=== PATIENT | female | born 1945 | race Caucasian/White ===

== ENCOUNTER → 2018-09-01 14:37 | Outpatient (CLI) | payer MEDICARE, OTHER, SELFPAY ==
--- NOTE | 2018-09-01 14:43 | DI.RAD.S_ITS ---
PROCEDURE: XR ANKLE RT MIN 3V INDICATIONS: Right ankle pain TECHNIQUE: 3 views of the ankle were acquired. COMPARISON: None. FINDINGS: Bones: No fractures or dislocations. Ankle mortise is normally aligned. No suspicious bony lesions. Plantar fascia insertion spur at the posterior calcaneus Soft tissues: No tibiotalar joint effusion. Achilles tendon appears free of disruption but has a fusiform thickening approximately centered 4.3 cm above the insertion, with a maximal AP dimension of the Achilles tendon in this area 1.2 cm versus 8 mm just above the posterior calcaneus.. IMPRESSION: No trauma found. Plantar fascia insertion spur is moderate in size at the posterior calcaneus. A small Achilles tendon insertion spur also can be seen in this area. Note is made of fusiform thickening of the Achilles tendon centered 4.3 cm above the Achilles tendon on the posterior calcaneus. Please closely correlate to determine whether an early phase of Achilles tendon rupture is developing. Followup by dedicated MR scanning optimized for this diagnosis may be warranted. Dictated by: Rivera Guevara M.D. on 09/01/2018 at 15:34 Approved by: Rivera Guevara M.D. on 09/01/2018 at 15:37
== END ==
PROVIDERS: PCP Family Medicine; Visit Provider Registered Nurse
DX: M25.571 Pain in right ankle and joints of right foot (principal); M77.31 Calcaneal spur, right foot
CPT/HCPCS: 73610

== ENCOUNTER → 2018-10-02 12:29 | Outpatient (CLI) | payer MEDICARE, OTHER, SELFPAY ==
[2018-10-02 14:28] LABS: Alanine Aminotransferase 59 IU/L (9-52); Albumin 4.4 g/dL (3.5-5.0); Albumin Globulin Ratio 1.6 (1.0-2.8); Alkaline Phosphatase 66 U/L (38-126); Aspartate Aminotransferase 55 IU/L (14-36); BUN Creatinine Ratio 21.1 (6-22); Bilirubin Total 0.4 mg/dL (0.2-1.3); Blood Urea Nitrogen 19 mg/dL (7-17); Calcium 9.7 mg/dL (8.4-10.2); Carbon Dioxide 23 mmol/L (22-32); Chloride 103 mmol/L (98-107); Cholesterol 165 mg/dL (140-199); Estimated Glomerular Filt Rate > 60.0 mL/min (>60); Globulin 2.8 g/dL (1.7-4.1); Glucose 209 mg/dL (80-110); HDL Cholesterol 53 mg/dL (40-60); HEMOLYSIS < 15 (0-50); LDL Cholesterol Calculated 70 mg/dL (<100); Potassium 4.8 mmol/L (3.4-5.1); Sodium 137 mmol/L (137-145); Total Protein 7.2 g/dL (6.3-8.2); Triglycerides 209 mg/dL (35-150)
[2018-10-02 15:42] LABS: Creatinine Urine Random 100.8 mg/dL
[2018-10-02 15:48] LABS: Microalbumi Creatinin Ratio Ur 74.4 ug/mg CR (<30); Microalbumin Urine Random 7.5 mg/dL (0-1.6)
== END ==
PROVIDERS: Visit Provider Registered Nurse
DX: E11.9 Type 2 diabetes mellitus without complications (principal); I10 Essential (primary) hypertension
CPT/HCPCS: 36415; 80053; 80061; 82043; 82570; 83036

== ENCOUNTER → 2018-10-16 14:58 | Outpatient (CLI) | payer MEDICARE, OTHER, SELFPAY ==
--- NOTE | 2018-10-16 14:59 | DI.ECHO.S_ITS ---
[place] [facility]---------+ [facility] +---------+ : : [address] : : : : [id number] : : : : Phone: [phone]+ Echocardiogram Report + + :Name: MERLENE STANFORD Study Date: 10/16/2018 Height: 62 in : :[facility] Exam Location: IS Weight: 180 lb : : Gender: Female BSA: 1.8 m2 : :: 1945 Age: 73 yrs BP: 150/80 mmHg: :Reason For Study: Resistant hypertension : : Performed By: Brenna Page : :Referring: LYNDSAY ELLINGTON : + + Interpretation Summary Borderline concentric left ventricular hypertrophy with ejection fraction 60- 65%. Grade I diastolic dysfunction. Moderately dilated left atrium. Mild mitral annular calcification. Mild aortic valve sclerosis. Mildly enlarged ascending aorta. Comparison is made with the echocardiogram of 12/13/2011, LV wall thickness has increased. Procedure: A two-dimensional transthoracic echocardiogram with color flow and Doppler was performed. The study quality was technically adequate. Comparison is made with the echocardiogram of 12/13/2011. The patient was in normal sinus rhythm during the exam. Left Ventricle: The left ventricle is normal in size. There is borderline concentric left ventricular hypertrophy. The ejection fraction is estimated to be 60-65%. There are no focal wall motion abnormalities. Diastolic parameters suggest a relaxation abnormality of the left ventricle, consistent with probable normal filling pressures. Right Ventricle: The right ventricle is normal in size and function. Atria: The left atrium is moderately dilated. Right atrial size is normal. There is no Doppler evidence for an interatrial shunt. Mitral Valve: The mitral valve leaflets appear mildly thickened, but open well. There is mild mitral annular calcification. There is trace mitral regurgitation. Aortic Valve: The aortic valve is trileaflet. The aortic valve opens well. There is mild aortic valve sclerosis. No aortic regurgitation is present. Tricuspid Valve: The tricuspid valve is normal in structure and function. There is trace tricuspid regurgitation. The right ventricular systolic pressure is estimated to be at least 29 mmHg based on an estimated right atrial pressure of 3 mm Hg. Pulmonic Valve: The pulmonic valve is not well visualized. There is a trace or physiologic amount of pulmonic regurgitation. Great Vessels: The aortic root is normal size. The ascending aorta is mildly enlarged. The pulmonary artery is not well visualized, but is probably normal size. The IVC is of normal diameter and collapses greater than 50% with a sniff. This suggests a low right atrial pressure of 3 mm Hg. Pericardium/ Pleura There is no pericardial effusion. There is no pleural effusion. MMode/2D Measurements & Calculations LVIDd: 4.4 cm Ao root diam: 3.5 cm LVIDs: 2.9 cm asc Aorta Diam: 3.5 cm FS: 33.1 % EPSS: 0.48 cm IVSd: 0.95 cm LVPWd: 0.88 cm LV ocampo. diameter/BSA (cm/m^2): 2.4 LV sys. diameter/BSA (cm/m^2): 1.6 LA A2 area: 21.1 cm2 RA long axis: 5.6 cm LA A4 area: 24.2 cm2 RA area: 19.2 cm2 LA length (vol): 5.6 cm RA vol: 56.1 ml LA vol: 77.4 ml RA : 30.7 ml/m2 LA vol index: 42.3 ml/m2 IVC diam: 0.91 cm RVD1 (basal): 3.7 cm TAPSE: 2.8 cm Doppler Measurements & Calculations Ao V2 max: 139.9 cm/sec LVOT Max Anthony: 113.5 cm/sec Ao V2 mean: 90.5 cm/sec LV V1 max P.2 mmHg Ao max P.8 mmHg LV V1 VTI: 25.4 cm Ao mean P.7 mmHg sev ratio: 0.87 Ao V2 VTI: 29.1 cm MV E max anthony: 75.5 cm/sec TR max anthony: 256.9 cm/sec MV A max anthony: 95.2 cm/sec TR max P.4 mmHg MV E/A: 0.79 PA V2 max: 86.1 cm/sec Med Peak E' Anthony: 5.3 cm/sec PA V2 mean: 62.8 cm/sec E/E' med: 14.3 PA mean P.7 mmHg Lat Peak E' Anthony: 6.8 cm/sec PA Accel Time: 0.13 sec E/E' lat: 11.0 E/e' average: 12.7 MV dec time: 0.29 sec MV P1/2t: 83.0 msec MV P1/2t max anthony: 75.7 cm/sec MVA(P1/2t): 2.6 cm2 Electronically signed by: Estela Plata on Reading Physician:10/16/2018 05:09 PM
== END ==
PROVIDERS: PCP Registered Nurse; Visit Provider Registered Nurse
DX: I35.8 Other nonrheumatic aortic valve disorders (principal); R01.1 Cardiac murmur, unspecified; I77.89 Other specified disorders of arteries and arterioles; I10 Essential (primary) hypertension
CPT/HCPCS: 93306

== ENCOUNTER → 2018-10-21 10:29 | Outpatient (CLI) | payer MEDICARE, OTHER, SELFPAY ==
--- NOTE | 2018-10-21 10:32 | DI.MRI.S_ITS ---
PROCEDURE: MR ANKLE RT WO CON INDICATIONS: RT ANKLE PAIN TECHNIQUE: Noncontrast sagittal T1 spin echo and T2 fast spin echo with fat saturation, axial proton density fast spin echo and T2 fast spin echo with fat saturation, coronal T1 spin echo and T2 fast spin echo with fat saturation through the ankle/hindfoot. COMPARISON: None. FINDINGS: Image quality: Excellent. Bones and joints: There is very mild edema involving lateral malleolus extending to its tip with no discrete fracture line seen. Finding may represent mild splenic contusion versus stress reaction. No other area of abnormal marrow signal. No fracture or dislocation. No hindfoot coalitions. No osteochondral injuries of the talar dome. No pathologic joint effusions. Medial structures: The posterior tibialis, flexor digitorum longus, and flexor hallucis longus tendons are intact. The posterior tibial neurovascular bundle appears normal within the tarsal tunnel, without extrinsic mass effect. The deep layer (anterior and posterior tibiotalar ligaments) and superficial layer (tibionavicular, tibiospring, and tibiocalcaneal ligaments) of the deltoid ligament appear normal. The spring ligament components (superomedial calcaneonavicular, medioplantar oblique calcaneonavicular, and inferoplantar longitudinal ligaments) are intact. Lateral structures: The anterior talofibular, calcaneofibular, and posterior talofibular ligaments appear intact. More superiorly, the anterior and posterior tibiofibular ligaments appear intact, as is the intermalleolar ligament. The tibiofibular syndesmosis is normal in width at 2 mm or less. The peroneus longus and brevis tendons are thickened with fluid distending the peroneus tendon sheath extending to their distal insertion consistent with moderate tenosynovitis. No evidence of peroneus tendon rupture. Adjacent bony peroneal tubercle and retrotrochlear prominence are normal in size. The sinus tarsi demonstrates normal fatty signal, without edema, fibrosis, or cyst formation. Visualized sinus tarsi components (cervical ligament, interosseous talocalcaneal ligament, roots of the inferior extensor retinaculum) appear normal. The calcaneonavicular and calcaneocuboid components of the bifurcate ligament appear intact. The dorsal calcaneocuboid ligament appears intact. Anterior structures: The tibialis anterior, extensor hallucis longus, and extensor digitorum longus tendons appear intact. The dorsal talonavicular ligament appears intact. Posterior and plantar structures: Significant thickening of distal Achilles tendon approximately 4 cm from its insertion on posterior calcaneus is seen suggestive of distal Achilles tendinosis. No evidence of Achilles tendon rupture. Medial and lateral bands of the plantar fascia are of normal thickness. No abductor digiti quinti muscle atrophy to suggest Horan neuropathy. IMPRESSION: 1. Moderate tenosynovitis involving mid to distal peroneus tendons. No evidence of peroneus tendon rupture. Moderate distal Achilles tendinosis with no evidence of Achilles tendon tear. 2. Very mild edema involving the distal portion of lateral malleolus, which may represent contusion versus stress reaction. No other area of abnormal marrow signal. No fracture or dislocation. 3. Rest of ankle tendons and ligaments are grossly intact. Dictated by: Kwaku Merchant M.D. on 10/23/2018 at 10:43 Approved by: Kwaku Merchant M.D. on 10/23/2018 at 10:49
== END ==
PROVIDERS: PCP Registered Nurse; Visit Provider Orthopaedic Surgery Foot and Ankle Surgery
DX: M25.571 Pain in right ankle and joints of right foot (principal); M65.871 Other synovitis and tenosynovitis, right ankle and foot
CPT/HCPCS: 73721

== ENCOUNTER → 2018-10-27 13:57 | Outpatient (CLI) | payer MEDICARE, OTHER, SELFPAY ==
[2018-10-27 15:24] LABS: Vitamin D 25 Hydroxy (D3) 15.9 ng/mL (30.0-100.0)
== END ==
PROVIDERS: PCP Registered Nurse; Visit Provider Orthopaedic Surgery Foot and Ankle Surgery
DX: E55.9 Vitamin D deficiency, unspecified (principal)
CPT/HCPCS: 36415; 82306

== ENCOUNTER → 2018-11-15 17:38 | Outpatient (CLI) | payer MEDICARE, OTHER, SELFPAY | PROVIDERS: PCP Student in an Organized Health Care Education/Training Program; Visit Provider Physician Assistant | DX: N30.00 Acute cystitis without hematuria (principal) | CPT/HCPCS: 87077; 87086; 87186 ==

== ENCOUNTER → 2019-01-31 09:07 | Outpatient (CLI) | payer MEDICARE, OTHER, SELFPAY ==
[2019-01-31 10:53] LABS: Alanine Aminotransferase 32 IU/L (9-52); Albumin 4.4 g/dL (3.5-5.0); Albumin Globulin Ratio 1.4 (1.0-2.8); Alkaline Phosphatase 58 U/L (38-126); Aspartate Aminotransferase 37 IU/L (14-36); Bilirubin Total 0.5 mg/dL (0.2-1.3); Blood Urea Nitrogen 30 mg/dL (7-17); Calcium 10.7 mg/dL (8.4-10.2); Carbon Dioxide 23 mmol/L (22-32); Chloride 103 mmol/L (98-107); Cholesterol 158 mg/dL (140-199); Estimated Glomerular Filt Rate 43.9 mL/min (>60); Globulin 3.2 g/dL (1.7-4.1); Glucose 145 mg/dL (80-110); HDL Cholesterol 52 mg/dL (40-60); HEMOLYSIS < 15 (0-50); LDL Cholesterol Calculated 79 mg/dL (<100); Magnesium 1.2 mg/dL (1.6-2.3); Potassium 4.7 mmol/L (3.4-5.1); Sodium 138 mmol/L (137-145); Total Protein 7.6 g/dL (6.3-8.2); Triglycerides 136 mg/dL (35-150)
[2019-01-31 11:18] LABS: Thyroid Stimulating Hormone 1.12 uIU/mL (0.47-4.68)
[2019-02-05 22:34] LABS: Metanephrine, Free 31 pg/mL (< OR = 57); Normetanephrine, Free 85 pg/mL (< OR = 148)
== END ==
PROVIDERS: PCP Student in an Organized Health Care Education/Training Program; Visit Provider Internal Medicine Cardiovascular Disease
DX: R00.2 Palpitations (principal); I10 Essential (primary) hypertension
CPT/HCPCS: 36415; 80053; 80061; 82088; 83735; 83835; 84443

== ENCOUNTER → 2019-06-13 14:39 | Outpatient (CLI) | payer MEDICARE, OTHER, SELFPAY ==
[2019-06-13 16:15] LABS: Blood Urea Nitrogen 26 mg/dL (7-17); Calcium 11.2 mg/dL (8.4-10.2); Carbon Dioxide 23 mmol/L (22-32); Chloride 104 mmol/L (98-107); Glucose 152 mg/dL (80-110); HEMOLYSIS < 15 (0-50); Magnesium 1.6 mg/dL (1.6-2.3); Sodium 138 mmol/L (137-145)
[2019-06-13 20:21] LABS: Vitamin D 25 Hydroxy (D3) 23.4 ng/mL (30.0-100.0)
== END ==
PROVIDERS: Family Provider Internal Medicine Cardiovascular Disease; PCP Student in an Organized Health Care Education/Training Program; Visit Provider Student in an Organized Health Care Education/Training Program
DX: E11.610 Type 2 diabetes mellitus with diabetic neuropathic arthropathy (principal); E55.9 Vitamin D deficiency, unspecified; E83.42 Hypomagnesemia; I10 Essential (primary) hypertension
CPT/HCPCS: 36415; 80048; 82306; 83036; 83735

== ENCOUNTER → 2019-06-19 13:17 | Outpatient (CLI) | payer MEDICARE, OTHER, SELFPAY ==
--- NOTE | 2019-06-19 13:20 | DI.RAD.S_ITS ---
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 COMPARISON: [facility], , CERVICAL SPINE 2 OR 3 VIEWS, 04/09/2014, 13:09. FINDINGS: Bones: No fractures or dislocations to the T1 level. Loss of lordosis which could be related to muscle spasm, rigidity or simply positional.grade 1 retrolisthesis C5-C6 where there is severe disc degeneration. The lateral masses of C1 appear intact on the odontoid view. No suspicious bony lesions. Mild multilevel uncovertebral hypertrophy. Soft tissues: No prevertebral soft tissue swelling. IMPRESSION: Loss of lordosis and severe disc degeneration at the C5-C6 level. Dictated by: Khadar DIALLO Interpreted: Laury Padilla MD on 06/19/2019 at 17:40 Approved by: Laury Padilla M.D. on 06/19/2019 at 18:37
== END ==
PROVIDERS: Family Provider Internal Medicine Cardiovascular Disease; PCP Student in an Organized Health Care Education/Training Program; Visit Provider Student in an Organized Health Care Education/Training Program
DX: G62.9 Polyneuropathy, unspecified (principal); M50.322 Other cervical disc degeneration at C5-C6 level
CPT/HCPCS: 72040

== ENCOUNTER → 2019-06-21 11:18 | Outpatient (CLI) | payer MEDICARE, OTHER, SELFPAY ==
[2019-06-21 12:43] LABS: Alanine Aminotransferase 20 IU/L (<35); Albumin 4.8 g/dL (3.5-5.0); Albumin Globulin Ratio 1.5 (1.0-2.8); Alkaline Phosphatase 69 U/L (38-126); Aspartate Aminotransferase 32 IU/L (14-36); BUN Creatinine Ratio 18.3 (6-22); Bilirubin Total 0.5 mg/dL (0.2-1.3); Blood Urea Nitrogen 22 mg/dL (7-17); Calcium 11.1 mg/dL (8.4-10.2); Carbon Dioxide 25 mmol/L (22-32); Chloride 102 mmol/L (98-107); Estimated Glomerular Filt Rate 43.9 mL/min (>60); Globulin 3.1 g/dL (1.7-4.1); Glucose 143 mg/dL (80-110); HEMOLYSIS < 15 (0-50); Magnesium 1.5 mg/dL (1.6-2.3); Phosphorous 3.4 mg/dL (2.8-4.1); Potassium 4.5 mmol/L (3.4-5.1); Sodium 138 mmol/L (137-145); Total Protein 7.9 g/dL (6.3-8.2)
[2019-06-21 13:13] LABS: TSH w/ Reflex to FT4 0.73 uIU/mL (0.47-4.68)
[2019-06-23 14:09] LABS: Parathyroid Hormone Int 22 pg/mL (14-64)
[2019-06-23 16:02] LABS: Ionized Calcium 5.5 mg/dL (4.8-5.6)
== END ==
PROVIDERS: PCP Student in an Organized Health Care Education/Training Program; Visit Provider Student in an Organized Health Care Education/Training Program
DX: E83.42 Hypomagnesemia (principal); E83.52 Hypercalcemia; Z79.899 Other long term (current) drug therapy; L65.9 Nonscarring hair loss, unspecified; R53.83 Other fatigue
CPT/HCPCS: 36415; 80053; 82330; 83735; 83970; 84100; 84443

== ENCOUNTER → 2019-09-21 09:47 | Outpatient (CLI) | payer MEDICARE, OTHER, SELFPAY ==
[2019-09-21 10:31] LABS: Hemoglobin A1C% w Est Avg Glu 6.5 % (4.0-6.0)
[2019-09-21 10:44] LABS: BUN Creatinine Ratio 19.4 (6-22); Blood Urea Nitrogen 21 mg/dL (7-17); Calcium 10.9 mg/dL (8.4-10.2); Carbon Dioxide 23 mmol/L (22-32); Chloride 107 mmol/L (98-107); Estimated Glomerular Filt Rate 49.6 mL/min (>60); Glucose 200 mg/dL (80-110); HEMOLYSIS < 15 (0-50); Sodium 138 mmol/L (137-145)
[2019-09-21 10:52] LABS: Potassium 5.6 mmol/L (3.4-5.1)
[2019-09-21 11:00] LABS: Vitamin D 25 Hydroxy (D3) 31.1 ng/mL (30.0-100.0)
[2019-09-21 17:41] LABS: Calcium Urine Random 4.2 mg/dL
[2019-09-21 17:44] LABS: Creatinine Urine Random 138.3 mg/dL
[2019-09-21 17:48] LABS: Microalbumi Creatinin Ratio Ur 49.8 ug/mg CR (<30); Microalbumin Urine Random 6.9 mg/dL (0-1.6)
== END ==
PROVIDERS: PCP Student in an Organized Health Care Education/Training Program; Referring Provider Student in an Organized Health Care Education/Training Program; Visit Provider Student in an Organized Health Care Education/Training Program
DX: E11.610 Type 2 diabetes mellitus with diabetic neuropathic arthropathy (principal); E55.9 Vitamin D deficiency, unspecified; E83.52 Hypercalcemia; N18.3 Chronic kidney disease, stage 3 (moderate)
CPT/HCPCS: 80048; 82043; 82306; 82340; 82570; 83036

== ENCOUNTER → 2019-11-09 14:36 | Outpatient (CLI) | payer MEDICARE, OTHER, SELFPAY | PROVIDERS: PCP Student in an Organized Health Care Education/Training Program; Referring Provider Student in an Organized Health Care Education/Training Program; Visit Provider Student in an Organized Health Care Education/Training Program | DX: E83.52 Hypercalcemia (principal); E11.21 Type 2 diabetes mellitus with diabetic nephropathy; R60.9 Edema, unspecified | CPT/HCPCS: 36415 ==

== ENCOUNTER → 2019-11-12 13:52 | Outpatient (CLI) | payer MEDICARE, OTHER, SELFPAY ==
[2019-11-12 15:28] LABS: BUN Creatinine Ratio 21.8 (6-22); Blood Urea Nitrogen 24 mg/dL (7-17); Calcium 10.8 mg/dL (8.4-10.2); Carbon Dioxide 21 mmol/L (22-32); Chloride 105 mmol/L (98-107); Estimated Glomerular Filt Rate 48.4 mL/min (>60); Glucose 220 mg/dL (80-110); HEMOLYSIS < 15 (0-50); Potassium 4.7 mmol/L (3.4-5.1); Sodium 136 mmol/L (137-145)
== END ==
PROVIDERS: PCP Student in an Organized Health Care Education/Training Program; Referring Provider Student in an Organized Health Care Education/Training Program; Visit Provider Student in an Organized Health Care Education/Training Program
DX: E11.21 Type 2 diabetes mellitus with diabetic nephropathy (principal); R60.9 Edema, unspecified
CPT/HCPCS: 80048

== ENCOUNTER → 2020-04-23 11:06 | Outpatient (CLI) | payer MEDICARE, OTHER, SELFPAY ==
[2020-04-23 12:48] LABS: Hemoglobin A1C% w Est Avg Glu 6.9 % (4.0-6.0)
[2020-04-23 13:13] LABS: Alkaline Phosphatase 67 U/L (38-126)
== END ==
PROVIDERS: PCP Student in an Organized Health Care Education/Training Program; Referring Provider Student in an Organized Health Care Education/Training Program; Visit Provider Student in an Organized Health Care Education/Training Program
DX: E11.21 Type 2 diabetes mellitus with diabetic nephropathy (principal); E11.610 Type 2 diabetes mellitus with diabetic neuropathic arthropathy; E83.52 Hypercalcemia; I10 Essential (primary) hypertension
CPT/HCPCS: 36415; 83036; 84075

== ENCOUNTER 2020-08-20 13:48 | Emergency (ER) | payer MEDICARE, OTHER, SELFPAY ==
[2020-08-20] VITALS (20 sets, daily range): BP systolic 133–174; BP diastolic 60–103; PULSE 84–105; RESP 16–32; TEMP 37.7–38.1; O2SAT 93–98; BMI 32.9
--- NOTE | 2020-08-20 14:15 | DI.RAD.S_ITS ---
PROCEDURE: XR CHEST 1V INDICATIONS: suspected sepsis TECHNIQUE: One view of the chest was acquired. COMPARISON: [facility], , CHEST 2 VIEW, 03/26/2013, 17:20. FINDINGS: Surgical changes and devices: None. Lungs and pleura: Lungs are clear. No pleural effusions or pneumothorax. Mediastinum: Mediastinal contours appear normal. Heart size is normal. Bones and chest wall: No suspicious bony lesions. Overlying soft tissues appear unremarkable. Degenerative changes are seen in the included spine. IMPRESSION: No acute cardiopulmonary abnormality. Dictated by: Vargas Franklin M.D. on 08/20/2020 at 14:47 Approved by: Vargas Franklin M.D. on 08/20/2020 at 14:48
[2020-08-20 14:27] LABS: Add Manual Diff / Slide Review NO; Basophils Absolute Auto 0 /uL (0-100); Basophils Percent Auto 0.3 % (0-2); Eosinophils Absolute Auto 0 /uL (0-450); Eosinophils Percent Auto 0.2 % (2-4); Hematocrit 30.5 % (36-46); Lymphocytes Absolute Auto 900 /uL (1100-4500); Lymphocytes Percent Auto 11.4 % (25-40); Mean Corpuscular HGB Conc 32.6 % (30-36); Mean Corpuscular Hemoglobin 27.5 PG (26-34); Mean Corpuscular Volume 84.4 fL (80-100); Monocytes Absolute Auto 400 /uL (0-900); Neutrophils Absolute Auto 6500 /uL (1500-7000); Neutrophils Percent Auto 83.1 % (50-75); Platelet Count 195 X10^3/uL (150-400); Red Blood Cell Count 3.62 X10^6/uL (4.0-5.2); White Blood Cell Count 7.9 X10^3/uL (4.5-11.0)
[2020-08-20 14:38] LABS: Lactate (Lactic Acid) 2.1 mmol/L (0.7-2.1)
[2020-08-20 14:39] LABS: Alanine Aminotransferase 28 IU/L (<35); Albumin Globulin Ratio 1.3 (1.0-2.8); Alkaline Phosphatase 64 U/L (38-126); Aspartate Aminotransferase 31 IU/L (14-36); BUN Creatinine Ratio 20.4 (6-22); Bilirubin Total 0.4 mg/dL (0.2-1.3); Blood Urea Nitrogen 21 mg/dL (7-17); Carbon Dioxide 25 mmol/L (22-32); Chloride 102 mmol/L (98-107); Estimated Glomerular Filt Rate 52.2 mL/min (>60); Globulin 3.1 g/dL (1.7-4.1); Glucose 226 mg/dL (80-110); HEMOLYSIS < 15 (0-50); Lipase 265 U/L (23-300); Potassium 3.9 mmol/L (3.4-5.1); Sodium 132 mmol/L (137-145); Total Protein 7.1 g/dL (6.3-8.2)
[2020-08-20 14:42] LABS: COVID19 -Nasal RAPID Negative (Negative)
[2020-08-20 14:50] LABS: INR 1.2 (0.9-1.3); Prothrombin Time 14.1 SECONDS (10.1-12.7)
[2020-08-20 14:51] LABS: Procalcitonin 0.06 ng/mL (<0.5)
[2020-08-20 14:53] LABS: PTT Partial Thromboplastin Tim 30 SECONDS (26.4-36.2)
--- NOTE | 2020-08-20 15:19 | DI.CT.S_ITS ---
PROCEDURE: CT ABDOMEN PELVIS W CON INDICATIONS: fever, tachy, unable to keep down fluids TECHNIQUE: After the administration of intravenous contrast, 5 mm thick sections acquired from the diaphragm to the symphysis. 5 mm coronal and sagittal reformats were acquired. For radiation dose reduction, the following was used: automated exposure control, adjustment of mA and/or kV according to patient size. COMPARISON: [facility], CR, XR CHEST 1V, 08/20/2020, 14:19. [facility], CT, ABDOMEN/PELVIS WITH CONTRAST, 01/18/2011, 16:06. FINDINGS: Image quality: Excellent. ABDOMEN: Lung bases: Right middle lobe and lingula scars and atelectasis. Heart size is normal. Solid organs: Liver is normal in size and enhancement. Gallbladder is normal. Biliary system is dilated. Common bile duct measures up to 12.4 mm in diameter. There is mild intrahepatic biliary dilation. Pancreas enhances normally. Spleen is normal in size and enhancement. No adrenal nodules. There is a 2.1 x 2.5 cm low-density mass in the superior pole of the left kidney. There is stranding and a small amount of fluid around the superior pole of the right kidney and tail of the pancreas. There is a 4 mm calcific density in the right right hilum compatible with a nonobstructive stone. Kidneys demonstrate normal size and enhancement, without hydronephrosis. Mild bilateral perinephric stranding. Peritoneum and bowel: Cecum and ascending colon are thickened consistent with colitis. Bowel loops demonstrate normal wall thickness and caliber. No free air. There is a mild free fluid in the right pericolic gutter. Nodes and vessels: No retroperitoneal or mesenteric adenopathy by size criteria. Aorta and inferior vena cava are normal in size. Miscellaneous: No ventral hernias. There are foci of fat stranding of the anterior abdominal wall. PELVIS: Genitourinary: Bladder wall thickness is normal. Uterus is absent. There is a 3.4 x 6.2 cm mass in the right adnexa, most likely the enlarged right ovary. Left ovary is not well seen. There is a trace amount of free fluid in the cul-de-sac. Miscellaneous: No inguinal hernias or adenopathy. Bones: No suspicious bony lesions. No vertebral body compression fractures. IMPRESSION: 1. Cecum and ascending colon appeas thickened consistent with colitis. 2. A 2.1 x 2.5 cm low-density mass in the superior pole of the left kidney. There is stranding and a small amount of fluid in the area of the upper pole of the left kidney. Differential diagnoses include partial rupture of exophytic left renal cyst, focal pyelonephritis with developing renal abscess and focal pancreatitis since the area is near the pancreatic tail. Recommend clinical correlation. Follow-up imaging is suggested to ensure resolution. 3. There is extrahepatic biliary dilation, most likely related to cholecystectomy. 4. A 3.4 x 6.2 cm mass in the right adnexa, likely arising from the right ovary. Recommend pelvic ultrasound for follow-up evaluation and gynecological consultation. 5. A 4 mm nonobstructing stone in right kidney. The result was discussed with Catherine Shah. Dictated by: Sunitha Velazquez M.D. on 08/20/2020 at 15:47 Approved by: Sunitha Velazquez M.D. on 08/20/2020 at 16:11
--- NOTE | 2020-08-20 15:52 | ED.FEVER ---
HPI - Fever <Catherine Shah, [employer]BC - Last Filed: 08/20/20 16:34> General Chief Complaint: Fever Stated Complaint: sick yesterday,diarrhea,chills,fever Time Seen by Provider: 08/20/20 14:27 Source: patient and family Mode of arrival: Ambulatory Limitations: no limitations History of Present Illness HPI Narrative: The patient is a 74-year-old female nonsmoker with history of hypertension, vertigo, chronic kidney disease who presents with a chief complaint of fever, muscle aches chills nausea vomiting and diarrhea since yesterday. She notes that she tried to eat some macro any and she has for dinner last night, and vomited up in the middle the night. She has vomited today as well. She denies any abdominal pain, but notes that she is having multiple episodes of watery diarrhea per day. She attributes this to her amlodipine. She does note that she has some chronic diarrhea, though this is much worse. She does note that she was told 40 years ago that she has ulcerative colitis, but that has ?never come up since.She states she has had multiple normal colonoscopy since. She denies any dysuria urgency or frequency. She denies any exposure to coronavirus. Related Data Home Medications Medication Instructions Recorded Confirmed aspirin 81 mg tablet,delayed 81 mg PO DAILY 12/03/18 08/20/20 release Insulin aspart sliding scale #1 ea 01/17/19 05/23/20 Previous Rx's Medication Instructions Recorded Glucose Test Strips #1 ea 12/26/18 Glucose: Home Monitor #1 ea 12/26/18 amlodipine 10 mg tablet 10 mg PO DAILY #90 tab 09/21/19 insulin glargine 100 unit/mL 30 unit SUBCUT BID #20 ml 01/17/20 subcutaneous solution esomeprazole magnesium 40 mg 40 mg PO DAILY #90 cap 02/26/20 capsule,delayed release enalapril maleate 20 mg tablet 20 mg PO BID #180 tab 04/17/20 hydrocortisone 1 % topical cream 1 applictn TOP BID PRN #30 gram 05/23/20 meclizine 25 mg tablet 25 mg PO DAILY PRN #30 tab 05/23/20 metformin 500 mg tablet,extended 500 mg PO SEE INSTRUCTIONS #120 tab 06/12/20 release 24 hr hydrochlorothiazide 12.5 mg tablet 12.5 mg PO QAM #90 tab 06/18/20 insulin aspart U-100 100 unit/mL 10 unit SUBCUT QAC #10 ml 06/18/20 subcutaneous solution Syringes: 1cc Insulin Syringes #1 ea 07/17/20 with [place] metronidazole [Flagyl] 500 mg PO TID #30 tab 08/20/20 sulfamethoxazole-trimethoprim 1 tab PO Q12H #20 tab 08/20/20 [Bactrim DS] Allergies Allergy/AdvReac Type Severity Reaction Status Date / Time amoxicillin [AMOXICILLIN] Allergy Severe nausea and Verified 08/20/20 14:02 rash ibuprofen [IBUPROFEN] Allergy Severe swelling Verified 08/20/20 14:02 and hives levofloxacin [LEVOFLOXACIN] Allergy Severe throat Verified 08/20/20 14:02 swelling/vomiting nitrofurantoin Allergy Severe hospitaliza Verified 08/20/20 14:02 [From MACROBID] tion indapamide [From LOZOL] Allergy Mild Verified 08/20/20 14:02 morphine [MORPHINE] AdvReac Severe climb the Verified 08/20/20 14:02 wall/hallucinations atorvastatin [ATORVASTATIN] AdvReac Intermediate myalgias Verified 08/20/20 14:02 simvastatin [From ZOCOR] AdvReac Intermediate myalgias Verified 08/20/20 14:02 Review of Systems <JUAN JOSE Elder - Last Filed: 08/20/20 16:34> Review of Systems Narrative: GENERAL: Denies chills, fatigue, malaise, fever, sweats. HEENT: Denies sinus pain, ear pain, sore throat, difficulty swallowing, dizziness. RESPIRATORY: Denies dyspnea, cough, wheezing, hemoptysis, sputum. CARDIOVASCULAR: Denies chest pain, palpitations, orthopnea, edema, GASTROINTESTINAL: See HPI : Denies dysuria, frequency, incontinence, hematuria, urinary retention. MUSCULOSKELETAL: denies weakness, joint pain, or bony pain SKIN: Denies rash, skin lesions, or other NEUROLOGIC: Denies weakness, headache, numbness, change in speech, confusion, seizures, incoordination. PSYCHIATRIC: No concerning psychosocial issues. 12 point review of systems is negative except for those stated above Patient History <JUAN JOSE Elder - Last Filed: 08/20/20 16:34> Medical History BPPV (benign paroxysmal positional vertigo) Diabetes mellitus GERD (gastroesophageal reflux disease) History of vaginal delivery Hormone replacement therapy Lumbar radiculopathy Surgical History History of bladder surgery History of breast biopsy History of cholecystectomy History of hysterectomy History of laminectomy (~2016) History of lymph node excision Family History Father Cancer Mother CVA (cerebral vascular accident) Social History Smoking Status: Never smoker alcohol intake: never substance use type: does not use Smoking Status: Never smoker alcohol intake frequency: other Substance Use Type: does not use Exam <JUAN JOSE Elder - Last Filed: 08/20/20 16:34> Narrative Exam Narrative: GENERAL: This is a well-nourished, well-developed patient, in no acute distress HEAD: Atraumatic. Normocephalic. No temporal or scalp tenderness. EYES: Pupils equal round and reactive. Extraocular motions intact. No scleral icterus. No injection or drainage. ENT: Nose without bleeding, purulent drainage or septal hematoma. Wearing a mask. Dry mucous membranes noted. Airway patent. NECK: Trachea midline. No JVD or lymphadenopathy. Supple, nontender, no meningeal signs. CARDIOVASCULAR: Regular rate and rhythm RESPIRATORY: Clear to auscultation. Breath sounds equal bilaterally. No wheezes, rales, or rhonchi. No cough. No increased respiratory effort. No accessory muscle use GASTROINTESTINAL: Abdomen soft, non-tender, nondistended. No hepato-splenomegaly, or palpable masses. No guarding. Active bowel sounds all 4 quadrants EXTREMITIES: No clubbing, cyanosis, or edema. No joint tenderness, effusion, or edema noted. BACK: Nontender without deformity or crepitance. No flank tenderness. NEURO: AOx3. SKIN: No rash or erythema on visible skin Initial Vital Signs Initial Vital Signs: Vital Signs Pulse Rate 102 H 08/20/20 13:53 Pulse Oximetry 96 08/20/20 13:53 <Catherine White DO - Last Filed: 08/21/20 19:20> Initial Vital Signs Initial Vital Signs: Vital Signs Pulse Rate 102 H 08/20/20 13:53 Pulse Oximetry 96 08/20/20 13:53 Scores <JUAN JOSE Elder - Last Filed: 08/20/20 16:34> GCS [place] coma scale eye opening: Spontaneous Fabiana coma scale verbal response: Orientated [place] coma scale motor response: Obey commands [place] coma scale total score: 15 Course <JUAN JOSE Elder - Last Filed: 08/20/20 16:34> Orders Ordered: Discontinued Medications Sodium Chloride (Normal Saline 0.9%) 1,000 mls @ 1,000 mls/hr IV BOLUS ONE Stop: 08/20/20 17:03 Last Infusion: 08/20/20 18:45 Dose: 0 mls/hr Documented by: Admin: 08/20/20 16:29 Dose: 1,000 mls/hr Documented by: ANA LUISA Vancomycin HCl/Dextrose (Vancomycin) 1,500 mg in 300 mls @ 200 mls/hr IV NOW ONE Stop: 08/20/20 18:58 Last Infusion: 08/20/20 19:25 Dose: 0 mls/hr Documented by: Admin: 08/20/20 17:35 Dose: 200 mls/hr Documented by: ANA LUISA Ondansetron HCl (Ondansetron 4 Mg/2 Ml Inj) 4 mg IV NOW ONE Stop: 08/20/20 16:05 Last Admin: 08/20/20 16:29 Dose: 4 mg Documented by: ANA LUISA Vital Signs Vital signs: Vital Signs - 8 hr 08/20/20 13:53 08/20/20 13:55 08/20/20 13:57 Temperature 100.6 F H Pulse Rate 102 H 104 H 101 H Respiratory Rate 18 29 H Blood Pressure 147/67 H 174/75 H Pulse Oximetry 96 97 96 08/20/20 14:00 08/20/20 14:30 08/20/20 15:00 Temperature Pulse Rate 102 H 97 H 99 H Respiratory Rate 25 H 26 H 26 H Blood Pressure 154/70 H 143/65 H 158/70 H Pulse Oximetry 96 95 94 08/20/20 15:36 08/20/20 15:54 08/20/20 16:00 Temperature Pulse Rate 95 H 93 H Respiratory Rate 29 H 29 H 32 H Blood Pressure 146/69 H Pulse Oximetry 96 97 93 08/20/20 16:01 08/20/20 16:14 08/20/20 16:30 Temperature Pulse Rate 93 H 93 H Respiratory Rate 20 Blood Pressure 135/62 Pulse Oximetry 98 95 08/20/20 16:47 08/20/20 16:55 08/20/20 17:00 Temperature 99.8 F H Pulse Rate 86 87 Respiratory Rate 23 25 H Blood Pressure 136/94 H 145/66 H Pulse Oximetry 95 95 <Catherine White, DO - Last Filed: 08/21/20 19:20> Orders Ordered: Discontinued Medications Sodium Chloride (Normal Saline 0.9%) 1,000 mls @ 1,000 mls/hr IV BOLUS ONE Stop: 08/20/20 17:03 Last Infusion: 08/20/20 18:45 Dose: 0 mls/hr Documented by: Admin: 08/20/20 16:29 Dose: 1,000 mls/hr Documented by: ANA LUISA Vancomycin HCl/Dextrose (Vancomycin) 1,500 mg in 300 mls @ 200 mls/hr IV NOW ONE Stop: 08/20/20 18:58 Last Infusion: 08/20/20 19:25 Dose: 0 mls/hr Documented by: Admin: 08/20/20 17:35 Dose: 200 mls/hr Documented by: ANA LUISA Ondansetron HCl (Ondansetron 4 Mg/2 Ml Inj) 4 mg IV NOW ONE Stop: 08/20/20 16:05 Last Admin: 08/20/20 16:29 Dose: 4 mg Documented by: ANA LUISA Vital Signs Vital signs: Vital Signs - 8 hr 08/20/20 13:53 08/20/20 13:55 08/20/20 13:57 Temperature 100.6 F H Pulse Rate 102 H 104 H 101 H Respiratory Rate 18 29 H Blood Pressure 147/67 H 174/75 H Pulse Oximetry 96 97 96 08/20/20 14:00 08/20/20 14:30 08/20/20 15:00 Temperature Pulse Rate 102 H 97 H 99 H Respiratory Rate 25 H 26 H 26 H Blood Pressure 154/70 H 143/65 H 158/70 H Pulse Oximetry 96 95 94 02/10/21 15:36 08/20/20 15:54 08/20/20 16:00 Temperature Pulse Rate 95 H 93 H Respiratory Rate 29 H 29 H 32 H Blood Pressure 146/69 H Pulse Oximetry 96 97 93 08/20/20 16:01 08/20/20 16:14 08/20/20 16:30 Temperature Pulse Rate 93 H 93 H Respiratory Rate 20 Blood Pressure 135/62 Pulse Oximetry 98 95 08/20/20 16:47 08/20/20 16:55 08/20/20 17:00 Temperature 99.8 F H Pulse Rate 86 87 Respiratory Rate 23 25 H Blood Pressure 136/94 H 145/66 H Pulse Oximetry 95 95 MDM - Fever <MARIELLE Elder-BC - Last Filed: 08/20/20 16:34> Lab Data Result diagrams: 08/20/20 13:58 08/20/20 14:15 Labs: Lab Results 08/20/20 08/20/20 08/20/20 Range/Units 13:58 13:58 13:58 WBC 7.9 (4.5-11.0) X10^3/uL RBC 3.62 L (4.0-5.2) X10^6/uL Hgb 10.0 L (12.0-16.0) g/dL Hct 30.5 L (36-46) % MCV 84.4 (80-100) fL MCH 27.5 (26-34) PG MCHC 32.6 (30-36) % RDW 15.0 H (11.6-14.8) % Plt Count 195 (150-400) X10^3/uL Neut % (Auto) 83.1 H (50-75) % Lymph % (Auto) 11.4 L (25-40) % [place] % (Auto) 5.0 (3-14) % Eos % (Auto) 0.2 L (2-4) % Baso % (Auto) 0.3 (0-2) % Neut # (Auto) 6500 (6177-1718) /uL Lymph # (Auto) 900 L (5940-9372) /uL [place] # (Auto) 400 (0-900) /uL Eos # (Auto) 0 (0-450) /uL Baso # (Auto) 0 (0-100) /uL PT 14.1 H (10.1-12.7) SECONDS INR 1.2 (0.9-1.3) APTT 30 (26.4-36.2) SECONDS Sodium (137-145) mmol/L Potassium (3.4-5.1) mmol/L Chloride (98-107) mmol/L Carbon Dioxide (22-32) mmol/L BUN (7-17) mg/dL Creatinine (0.52-1.04) mg/dL Estimated GFR (>60) mL/min BUN/Creatinine Ratio (6-22) Glucose (80-110) mg/dL Lactate (0.7-2.1) mmol/L Calcium (8.4-10.2) mg/dL Total Bilirubin (0.2-1.3) mg/dL AST (14-36) IU/L ALT (<35) IU/L Alkaline Phosphatase (38-126) U/L Total Protein (6.3-8.2) g/dL Albumin (3.5-5.0) g/dL Globulin (1.7-4.1) g/dL Albumin/Globulin Ratio (1.0-2.8) Lipase (23-300) U/L Procalcitonin 0.06 (<0.5) ng/mL Stl C. cayetanensis PCR Stool Rotavirus (PCR) Stool Adenovirus (PCR) Stool Astrovirus (PCR) Stool Cryptosporidium PCR Stl E.coli Shiga Tox PCR St Sh/Enteroin Ecoli PCR Stool E coli O157 PCR Stl Enterotoxigenic E PCR Stool EPEC (PCR) Stl E. histolytica PCR Stool Giardia Lamblia PCR Stool Sapovirus (PCR) Stl P. shigelloides PCR St Y.enterocolitica PCR Stool Vibrio (PCR) Stl Vibrio cholerae PCR Stl Enteroaggr Ecoli PCR Stl Norovirus GI/GII PCR A. baumannii (PCR) (Not Detect) Campylobacter (PCR) Dory albicans (PCR) (Not Detect) C. glabrata (PCR) (Not Detect) C. krusei (PCR) (Not Detect) C. parapsilosis (PCR) (Not Detect) C. tropicalis (PCR) (Not Detect) C. difficile Tox (PCR) SARS-CoV-2 (PCR) (Negative) Enterobacteriac sp PCR (Not Detect) E. cloacae complex PCR (Not Detect) Enterococcus sp PCR (Not Detect) E. coli (PCR) (Not Detect) H. influenzae (PCR) (Not Detect) Klebsiella oxytoca PCR (Not Detect) Klebsiella pneumoniae (Not Detect) List. monocytogenes PCR (Not Detect) N. meningitidis (PCR) (Not Detect) Proteus species (PCR) (Not Detect) Salmonella (PCR) Serratia marcescens PCR (Not Detect) Staphylococcus sp PCR (Not Detect) Staph aureus (PCR) (Not Detect) mecA-Methicil Res Gene Streptococcus sp PCR (Not Detect) Group A Strep (PCR) (Not Detect) Strep agalactiae (PCR) (Not Detect) Strep pneumoniae (PCR) (Not Detect) P. aeruginosa (PCR) (Not Detect) Parminder/B-Vanco Res Genes KPC-Carbap Res Gene PCR (Not Detect) 08/20/20 08/20/20 08/20/20 Range/Units 13:58 14:11 14:15 WBC (4.5-11.0) X10^3/uL RBC (4.0-5.2) X10^6/uL Hgb (12.0-16.0) g/dL Hct (36-46) % MCV (80-100) fL MCH (26-34) PG MCHC (30-36) % RDW (11.6-14.8) % Plt Count (150-400) X10^3/uL Neut % (Auto) (50-75) % Lymph % (Auto) (25-40) % [place] % (Auto) (3-14) % Eos % (Auto) (2-4) % Baso % (Auto) (0-2) % Neut # (Auto) (8162-4172) /uL Lymph # (Auto) (9773-8539) /uL [place] # (Auto) (0-900) /uL Eos # (Auto) (0-450) /uL Baso # (Auto) (0-100) /uL PT (10.1-12.7) SECONDS INR (0.9-1.3) APTT (26.4-36.2) SECONDS Sodium 132 L (137-145) mmol/L Potassium 3.9 (3.4-5.1) mmol/L Chloride 102 (98-107) mmol/L Carbon Dioxide 25 (22-32) mmol/L BUN 21 H (7-17) mg/dL Creatinine 1.03 (0.52-1.04) mg/dL Estimated GFR 52.2 L (>60) mL/min BUN/Creatinine Ratio 20.4 (6-22) Glucose 226 H (80-110) mg/dL Lactate (0.7-2.1) mmol/L Calcium 9.0 (8.4-10.2) mg/dL Total Bilirubin 0.4 (0.2-1.3) mg/dL AST 31 (14-36) IU/L ALT 28 (<35) IU/L Alkaline Phosphatase 64 (38-126) U/L Total Protein 7.1 (6.3-8.2) g/dL Albumin 4.0 (3.5-5.0) g/dL Globulin 3.1 (1.7-4.1) g/dL Albumin/Globulin Ratio 1.3 (1.0-2.8) Lipase 265 (23-300) U/L Procalcitonin (<0.5) ng/mL Stl C. cayetanensis PCR Cancelled Stool Rotavirus (PCR) Cancelled Stool Adenovirus (PCR) Cancelled Stool Astrovirus (PCR) Cancelled Stool Cryptosporidium PCR Cancelled Stl E.coli Shiga Tox PCR Cancelled St Sh/Enteroin Ecoli PCR Cancelled Stool E coli O157 PCR Cancelled Stl Enterotoxigenic E PCR Cancelled Stool EPEC (PCR) Cancelled Stl E. histolytica PCR Cancelled Stool Giardia Lamblia PCR Cancelled Stool Sapovirus (PCR) Cancelled Stl P. shigelloides PCR Cancelled St Y.enterocolitica PCR Cancelled Stool Vibrio (PCR) Cancelled Stl Vibrio cholerae PCR Cancelled Stl Enteroaggr Ecoli PCR Cancelled Stl Norovirus GI/GII PCR Cancelled A. baumannii (PCR) Not detected (Not Detect) Campylobacter (PCR) Cancelled Dory albicans (PCR) Not detected (Not Detect) C. glabrata (PCR) Not detected (Not Detect) C. krusei (PCR) Not detected (Not Detect) C. parapsilosis (PCR) Not detected (Not Detect) C. tropicalis (PCR) Not detected (Not Detect) C. difficile Tox (PCR) Cancelled SARS-CoV-2 (PCR) (Negative) Enterobacteriac sp PCR Detected H (Not Detect) E. cloacae complex PCR Not detected (Not Detect) Enterococcus sp PCR Not detected (Not Detect) E. coli (PCR) Not detected (Not Detect) H. influenzae (PCR) Not detected (Not Detect) Klebsiella oxytoca PCR Not detected (Not Detect) Klebsiella pneumoniae Not detected (Not Detect) List. monocytogenes PCR Not detected (Not Detect) N. meningitidis (PCR) Not detected (Not Detect) Proteus species (PCR) Not detected (Not Detect) Salmonella (PCR) Cancelled Serratia marcescens PCR Not detected (Not Detect) Staphylococcus sp PCR Not detected (Not Detect) Staph aureus (PCR) Not detected (Not Detect) mecA-Methicil Res Gene Not Reportable Streptococcus sp PCR Not detected (Not Detect) Group A Strep (PCR) Not detected (Not Detect) Strep agalactiae (PCR) Not detected (Not Detect) Strep pneumoniae (PCR) Not detected (Not Detect) P. aeruginosa (PCR) Not detected (Not Detect) Parminder/B-Vanco Res Genes Not Reportable KPC-Carbap Res Gene PCR Not detected (Not Detect) 08/20/20 08/20/20 08/20/20 Range/Units 14:15 14:16 16:56 WBC (4.5-11.0) X10^3/uL RBC (4.0-5.2) X10^6/uL Hgb (12.0-16.0) g/dL Hct (36-46) % MCV (80-100) fL MCH (26-34) PG MCHC (30-36) % RDW (11.6-14.8) % Plt Count (150-400) X10^3/uL Neut % (Auto) (50-75) % Lymph % (Auto) (25-40) % [place] % (Auto) (3-14) % Eos % (Auto) (2-4) % Baso % (Auto) (0-2) % Neut # (Auto) (9245-7800) /uL Lymph # (Auto) (5748-7686) /uL [place] # (Auto) (0-900) /uL Eos # (Auto) (0-450) /uL Baso # (Auto) (0-100) /uL PT (10.1-12.7) SECONDS INR (0.9-1.3) APTT (26.4-36.2) SECONDS Sodium (137-145) mmol/L Potassium (3.4-5.1) mmol/L Chloride (98-107) mmol/L Carbon Dioxide (22-32) mmol/L BUN (7-17) mg/dL Creatinine (0.52-1.04) mg/dL Estimated GFR (>60) mL/min BUN/Creatinine Ratio (6-22) Glucose (80-110) mg/dL Lactate 2.1 1.5 (0.7-2.1) mmol/L Calcium (8.4-10.2) mg/dL Total Bilirubin (0.2-1.3) mg/dL AST (14-36) IU/L ALT (<35) IU/L Alkaline Phosphatase (38-126) U/L Total Protein (6.3-8.2) g/dL Albumin (3.5-5.0) g/dL Globulin (1.7-4.1) g/dL Albumin/Globulin Ratio (1.0-2.8) Lipase (23-300) U/L Procalcitonin (<0.5) ng/mL Stl C. cayetanensis PCR Stool Rotavirus (PCR) Stool Adenovirus (PCR) Stool Astrovirus (PCR) Stool Cryptosporidium PCR Stl E.coli Shiga Tox PCR St Sh/Enteroin Ecoli PCR Stool E coli O157 PCR Stl Enterotoxigenic E PCR Stool EPEC (PCR) Stl E. histolytica PCR Stool Giardia Lamblia PCR Stool Sapovirus (PCR) Stl P. shigelloides PCR St Y.enterocolitica PCR Stool Vibrio (PCR) Stl Vibrio cholerae PCR Stl Enteroaggr Ecoli PCR Stl Norovirus GI/GII PCR A. baumannii (PCR) (Not Detect) Campylobacter (PCR) Dory albicans (PCR) (Not Detect) C. glabrata (PCR) (Not Detect) C. krusei (PCR) (Not Detect) C. parapsilosis (PCR) (Not Detect) C. tropicalis (PCR) (Not Detect) C. difficile Tox (PCR) SARS-CoV-2 (PCR) Negative (Negative) Enterobacteriac sp PCR (Not Detect) E. cloacae complex PCR (Not Detect) Enterococcus sp PCR (Not Detect) E. coli (PCR) (Not Detect) H. influenzae (PCR) (Not Detect) Klebsiella oxytoca PCR (Not Detect) Klebsiella pneumoniae (Not Detect) List. monocytogenes PCR (Not Detect) N. meningitidis (PCR) (Not Detect) Proteus species (PCR) (Not Detect) Salmonella (PCR) Serratia marcescens PCR (Not Detect) Staphylococcus sp PCR (Not Detect) Staph aureus (PCR) (Not Detect) mecA-Methicil Res Gene Streptococcus sp PCR (Not Detect) Group A Strep (PCR) (Not Detect) Strep agalactiae (PCR) (Not Detect) Strep pneumoniae (PCR) (Not Detect) P. aeruginosa (PCR) (Not Detect) Parminder/B-Vanco Res Genes KPC-Carbap Res Gene PCR (Not Detect) Urine Dip Bedside Urine Glucose Negative Bedside Urine Bilirubin - Negative Bedside Urine Ketone - Negative Urine Specific [place] 1.010 Bedside Urine Occult Blood - Negative Bedside Urine pH 6 Bedside Urine Protein +/- 15 Bedside Urine Urobilinogen - Negative Bedside Urine Nitrite - Negative Bedside Urine Leukocytes - Negative Esterase Imaging Data CT scan - abdomen/pelvis: Radiologist's Impression: [address] [id number] Scan ReportSigned Patient: Frida Britt [facility]#: [id number]: 5Acct:[id number]/Sex: 74 / FDate of Service: 08/20/20Loc: EDAccession Number: [id number] Procedure: CT abdomen pelvis w con Ordering Provider: Catherine Shah [employer]- PROCEDURE: CT ABDOMEN PELVIS W CON INDICATIONS: fever, tachy, unable to keep down fluids TECHNIQUE: After the administration of intravenous contrast, 5 mm thick sections acquired from the diaphragm to the symphysis. 5 mm coronal and sagittal reformats were acquired. For radiation dose reduction, the following was used: automated exposure control, adjustment of mA and/or kV according to patient size. COMPARISON: [facility], CR, XR CHEST 1V, 08/20/2020, 14:19. [facility], CT, ABDOMEN/PELVIS WITH CONTRAST, 01/18/2011, 16:06. FINDINGS: Image quality: Excellent. ABDOMEN: Lung bases: Right middle lobe and lingula scars and atelectasis. Heart size is normal. Solid organs: Liver is normal in size and enhancement. Gallbladder is normal. Biliary system is dilated. Common bile duct measures up to 12.4 mm in diameter. There is mild intrahepatic biliary dilation. Pancreas enhances normally. Spleen is normal in size and enhancement. No adrenal nodules. There is a 2.1 x 2.5 cm low-density mass in the superior pole of the left kidney. There is stranding and a small amount of fluid around the superior pole of the right kidney and tail of the pancreas. There is a 4 mm calcific density in the right right hilum compatible with a nonobstructive stone. Kidneys demonstrate normal size and enhancement, without hydronephrosis. Mild bilateral perinephric stranding. Peritoneum and bowel: Cecum and ascending colon are thickened consistent with colitis. Bowel loops demonstrate normal wall thickness and caliber. No free air. There is a mild free fluid in the right pericolic gutter. Nodes and vessels: No retroperitoneal or mesenteric adenopathy by size criteria. Aorta and inferior vena cava are normal in size. Miscellaneous: No ventral hernias. There are foci of fat stranding of the anterior abdominal wall. PELVIS: Genitourinary: Bladder wall thickness is normal. Uterus is absent. There is a 3.4 x 6.2 cm mass in the right adnexa, most likely the enlarged right ovary. Left ovary is not well seen. There is a trace amount of free fluid in the cul-de-sac. Miscellaneous: No inguinal hernias or adenopathy. Bones: No suspicious bony lesions. No vertebral body compression fractures. IMPRESSION: 1. Cecum and ascending colon appeas thickened consistent with colitis. 2. A 2.1 x 2.5 cm low-density mass in the superior pole of the left kidney. There is stranding and a small amount of fluid in the area of the upper pole of the left kidney. Differential diagnoses include partial rupture of exophytic left renal cyst, focal pyelonephritis with developing renal abscess and focal pancreatitis since the area is near the pancreatic tail. Recommend clinical correlation. Follow-up imaging is suggested to ensure resolution. 3. There is extrahepatic biliary dilation, most likely related to cholecystectomy. 4. A 3.4 x 6.2 cm mass in the right adnexa, likely arising from the right ovary. Recommend pelvic ultrasound for follow-up evaluation and gynecological consultation. 5. A 4 mm nonobstructing stone in right kidney. The result was discussed with Catherine Shah. Dictated by: Sunitha Velazquez M.D. on 08/20/2020 at 15:47 Approved by: Sunitha Velazquez M.D. on 08/20/2020 at 16:11 Chest x-ray: Radiologist's Impression: [address] [id number] ReportSigned Patient: Frida Britt [facility]#: [id number]: 5Acct:[id number]/Sex: 74 / FDate of Service: 08/20/20Loc: EDAccession Number: [id number] Procedure: XR chest 1V Ordering Provider: Catherine Shah [employer]- PROCEDURE: XR CHEST 1V INDICATIONS: suspected sepsis TECHNIQUE: One view of the chest was acquired. COMPARISON: [facility], CHEST 2 VIEW, 03/26/2013, 17:20. FINDINGS: Surgical changes and devices: None. Lungs and pleura: Lungs are clear. No pleural effusions or pneumothorax. Mediastinum: Mediastinal contours appear normal. Heart size is normal. Bones and chest wall: No suspicious bony lesions. Overlying soft tissues appear unremarkable. Degenerative changes are seen in the included spine. IMPRESSION: No acute cardiopulmonary abnormality. Dictated by: Vargas Franklin M.D. on 08/20/2020 at 14:47 Approved by: Vargas Franklin M.D. on 08/20/2020 at 14:48 [facility] Narrative Medical decision making narrative: The patient is a 74-year-old female who presents with a chief complaint of fever muscle aches chills, nausea vomiting and diarrhea. Work is overall reassuring, no leukocytosis, no elevated lactate or procalcitonin. Given that she is unable to keep down fluids, reports multiple watery stools per day, CT abdomen pelvis obtained, especially given the setting of tachycardia and fever. Blood cultures also done. CT concerning for colitis, did discuss at length with the patient of a low-density mass in the superior pole of her left kidney. Her etiologies noted to consider pyelonephritis, renal abscess however the patient has no leukocytosis, no procalcitonin and no pain over left CVA area. Focal pancreatitis consider given radiology concerns, though lipase is not elevated at this time. Did discuss at length with patient the mass of her right adnexa, encouraged further imaging with primary care provider and/or OBGYN as well as nonobstructing right renal stone. At approximately 4:20 p.m did discuss with patient all these findings, offered admission at this point, but patient would like to hold off receive IV fluids and get stool sample 1st. Patient signed outto Dr White at 16:30. <Catherine White, DO - Last Filed: 08/21/20 19:20> Lab Data Attestation: I reviewed the patient's lab results. Labs: Lab Results 08/20/20 08/20/20 08/20/20 Range/Units 13:58 13:58 13:58 WBC 7.9 (4.5-11.0) X10^3/uL RBC 3.62 L (4.0-5.2) X10^6/uL Hgb 10.0 L (12.0-16.0) g/dL Hct 30.5 L (36-46) % MCV 84.4 (80-100) fL MCH 27.5 (26-34) PG MCHC 32.6 (30-36) % RDW 15.0 H (11.6-14.8) % Plt Count 195 (150-400) X10^3/uL Neut % (Auto) 83.1 H (50-75) % Lymph % (Auto) 11.4 L (25-40) % [place] % (Auto) 5.0 (3-14) % Eos % (Auto) 0.2 L (2-4) % Baso % (Auto) 0.3 (0-2) % Neut # (Auto) 6500 (4948-7687) /uL Lymph # (Auto) 900 L (0173-1026) /uL [place] # (Auto) 400 (0-900) /uL Eos # (Auto) 0 (0-450) /uL Baso # (Auto) 0 (0-100) /uL PT 14.1 H (10.1-12.7) SECONDS INR 1.2 (0.9-1.3) APTT 30 (26.4-36.2) SECONDS Sodium (137-145) mmol/L Potassium (3.4-5.1) mmol/L Chloride (98-107) mmol/L Carbon Dioxide (22-32) mmol/L BUN (7-17) mg/dL Creatinine (0.52-1.04) mg/dL Estimated GFR (>60) mL/min BUN/Creatinine Ratio (6-22) Glucose (80-110) mg/dL Lactate (0.7-2.1) mmol/L Calcium (8.4-10.2) mg/dL Total Bilirubin (0.2-1.3) mg/dL AST (14-36) IU/L ALT (<35) IU/L Alkaline Phosphatase (38-126) U/L Total Protein (6.3-8.2) g/dL Albumin (3.5-5.0) g/dL Globulin (1.7-4.1) g/dL Albumin/Globulin Ratio (1.0-2.8) Lipase (23-300) U/L Procalcitonin 0.06 (<0.5) ng/mL Stl C. cayetanensis PCR Stool Rotavirus (PCR) Stool Adenovirus (PCR) Stool Astrovirus (PCR) Stool Cryptosporidium PCR Stl E.coli Shiga Tox PCR St Sh/Enteroin Ecoli PCR Stool E coli O157 PCR Stl Enterotoxigenic E PCR Stool EPEC (PCR) Stl E. histolytica PCR Stool Giardia Lamblia PCR Stool Sapovirus (PCR) Stl P. shigelloides PCR St Y.enterocolitica PCR Stool Vibrio (PCR) Stl Vibrio cholerae PCR Stl Enteroaggr Ecoli PCR Stl Norovirus GI/GII PCR A. baumannii (PCR) (Not Detect) Campylobacter (PCR) Dory albicans (PCR) (Not Detect) C. glabrata (PCR) (Not Detect) C. krusei (PCR) (Not Detect) C. parapsilosis (PCR) (Not Detect) C. tropicalis (PCR) (Not Detect) C. difficile Tox (PCR) SARS-CoV-2 (PCR) (Negative) Enterobacteriac sp PCR (Not Detect) E. cloacae complex PCR (Not Detect) Enterococcus sp PCR (Not Detect) E. coli (PCR) (Not Detect) H. influenzae (PCR) (Not Detect) Klebsiella oxytoca PCR (Not Detect) Klebsiella pneumoniae (Not Detect) List. monocytogenes PCR (Not Detect) N. meningitidis (PCR) (Not Detect) Proteus species (PCR) (Not Detect) Salmonella (PCR) Serratia marcescens PCR (Not Detect) Staphylococcus sp PCR (Not Detect) Staph aureus (PCR) (Not Detect) mecA-Methicil Res Gene Streptococcus sp PCR (Not Detect) Group A Strep (PCR) (Not Detect) Strep agalactiae (PCR) (Not Detect) Strep pneumoniae (PCR) (Not Detect) P. aeruginosa (PCR) (Not Detect) Parminder/B-Vanco Res Genes KPC-Carbap Res Gene PCR (Not Detect) 08/20/20 08/20/20 08/20/20 Range/Units 13:58 14:11 14:15 WBC (4.5-11.0) X10^3/uL RBC (4.0-5.2) X10^6/uL Hgb (12.0-16.0) g/dL Hct (36-46) % MCV (80-100) fL MCH (26-34) PG MCHC (30-36) % RDW (11.6-14.8) % Plt Count (150-400) X10^3/uL Neut % (Auto) (50-75) % Lymph % (Auto) (25-40) % [place] % (Auto) (3-14) % Eos % (Auto) (2-4) % Baso % (Auto) (0-2) % Neut # (Auto) (6375-3861) /uL Lymph # (Auto) (5918-0932) /uL [place] # (Auto) (0-900) /uL Eos # (Auto) (0-450) /uL Baso # (Auto) (0-100) /uL PT (10.1-12.7) SECONDS INR (0.9-1.3) APTT (26.4-36.2) SECONDS Sodium 132 L (137-145) mmol/L Potassium 3.9 (3.4-5.1) mmol/L Chloride 102 (98-107) mmol/L Carbon Dioxide 25 (22-32) mmol/L BUN 21 H (7-17) mg/dL Creatinine 1.03 (0.52-1.04) mg/dL Estimated GFR 52.2 L (>60) mL/min BUN/Creatinine Ratio 20.4 (6-22) Glucose 226 H (80-110) mg/dL Lactate (0.7-2.1) mmol/L Calcium 9.0 (8.4-10.2) mg/dL Total Bilirubin 0.4 (0.2-1.3) mg/dL AST 31 (14-36) IU/L ALT 28 (<35) IU/L Alkaline Phosphatase 64 (38-126) U/L Total Protein 7.1 (6.3-8.2) g/dL Albumin 4.0 (3.5-5.0) g/dL Globulin 3.1 (1.7-4.1) g/dL Albumin/Globulin Ratio 1.3 (1.0-2.8) Lipase 265 (23-300) U/L Procalcitonin (<0.5) ng/mL Stl C. cayetanensis PCR Cancelled Stool Rotavirus (PCR) Cancelled Stool Adenovirus (PCR) Cancelled Stool Astrovirus (PCR) Cancelled Stool Cryptosporidium PCR Cancelled Stl E.coli Shiga Tox PCR Cancelled St Sh/Enteroin Ecoli PCR Cancelled Stool E coli O157 PCR Cancelled Stl Enterotoxigenic E PCR Cancelled Stool EPEC (PCR) Cancelled Stl E. histolytica PCR Cancelled Stool Giardia Lamblia PCR Cancelled Stool Sapovirus (PCR) Cancelled Stl P. shigelloides PCR Cancelled St Y.enterocolitica PCR Cancelled Stool Vibrio (PCR) Cancelled Stl Vibrio cholerae PCR Cancelled Stl Enteroaggr Ecoli PCR Cancelled Stl Norovirus GI/GII PCR Cancelled A. baumannii (PCR) Not detected (Not Detect) Campylobacter (PCR) Cancelled Dory albicans (PCR) Not detected (Not Detect) C. glabrata (PCR) Not detected (Not Detect) C. krusei (PCR) Not detected (Not Detect) C. parapsilosis (PCR) Not detected (Not Detect) C. tropicalis (PCR) Not detected (Not Detect) C. difficile Tox (PCR) Cancelled SARS-CoV-2 (PCR) (Negative) Enterobacteriac sp PCR Detected H (Not Detect) E. cloacae complex PCR Not detected (Not Detect) Enterococcus sp PCR Not detected (Not Detect) E. coli (PCR) Not detected (Not Detect) H. influenzae (PCR) Not detected (Not Detect) Klebsiella oxytoca PCR Not detected (Not Detect) Klebsiella pneumoniae Not detected (Not Detect) List. monocytogenes PCR Not detected (Not Detect) N. meningitidis (PCR) Not detected (Not Detect) Proteus species (PCR) Not detected (Not Detect) Salmonella (PCR) Cancelled Serratia marcescens PCR Not detected (Not Detect) Staphylococcus sp PCR Not detected (Not Detect) Staph aureus (PCR) Not detected (Not Detect) mecA-Methicil Res Gene Not Reportable Streptococcus sp PCR Not detected (Not Detect) Group A Strep (PCR) Not detected (Not Detect) Strep agalactiae (PCR) Not detected (Not Detect) Strep pneumoniae (PCR) Not detected (Not Detect) P. aeruginosa (PCR) Not detected (Not Detect) Parminder/B-Vanco Res Genes Not Reportable KPC-Carbap Res Gene PCR Not detected (Not Detect) 08/20/20 08/20/20 08/20/20 Range/Units 14:15 14:16 16:56 WBC (4.5-11.0) X10^3/uL RBC (4.0-5.2) X10^6/uL Hgb (12.0-16.0) g/dL Hct (36-46) % MCV (80-100) fL MCH (26-34) PG MCHC (30-36) % RDW (11.6-14.8) % Plt Count (150-400) X10^3/uL Neut % (Auto) (50-75) % Lymph % (Auto) (25-40) % [place] % (Auto) (3-14) % Eos % (Auto) (2-4) % Baso % (Auto) (0-2) % Neut # (Auto) (2898-2421) /uL Lymph # (Auto) (0556-9279) /uL [place] # (Auto) (0-900) /uL Eos # (Auto) (0-450) /uL Baso # (Auto) (0-100) /uL PT (10.1-12.7) SECONDS INR (0.9-1.3) APTT (26.4-36.2) SECONDS Sodium (137-145) mmol/L Potassium (3.4-5.1) mmol/L Chloride (98-107) mmol/L Carbon Dioxide (22-32) mmol/L BUN (7-17) mg/dL Creatinine (0.52-1.04) mg/dL Estimated GFR (>60) mL/min BUN/Creatinine Ratio (6-22) Glucose (80-110) mg/dL Lactate 2.1 1.5 (0.7-2.1) mmol/L Calcium (8.4-10.2) mg/dL Total Bilirubin (0.2-1.3) mg/dL AST (14-36) IU/L ALT (<35) IU/L Alkaline Phosphatase (38-126) U/L Total Protein (6.3-8.2) g/dL Albumin (3.5-5.0) g/dL Globulin (1.7-4.1) g/dL Albumin/Globulin Ratio (1.0-2.8) Lipase (23-300) U/L Procalcitonin (<0.5) ng/mL Stl C. cayetanensis PCR Stool Rotavirus (PCR) Stool Adenovirus (PCR) Stool Astrovirus (PCR) Stool Cryptosporidium PCR Stl E.coli Shiga Tox PCR St Sh/Enteroin Ecoli PCR Stool E coli O157 PCR Stl Enterotoxigenic E PCR Stool EPEC (PCR) Stl E. histolytica PCR Stool Giardia Lamblia PCR Stool Sapovirus (PCR) Stl P. shigelloides PCR St Y.enterocolitica PCR Stool Vibrio (PCR) Stl Vibrio cholerae PCR Stl Enteroaggr Ecoli PCR Stl Norovirus GI/GII PCR A. baumannii (PCR) (Not Detect) Campylobacter (PCR) Dory albicans (PCR) (Not Detect) C. glabrata (PCR) (Not Detect) C. krusei (PCR) (Not Detect) C. parapsilosis (PCR) (Not Detect) C. tropicalis (PCR) (Not Detect) C. difficile Tox (PCR) SARS-CoV-2 (PCR) Negative (Negative) Enterobacteriac sp PCR (Not Detect) E. cloacae complex PCR (Not Detect) Enterococcus sp PCR (Not Detect) E. coli (PCR) (Not Detect) H. influenzae (PCR) (Not Detect) Klebsiella oxytoca PCR (Not Detect) Klebsiella pneumoniae (Not Detect) List. monocytogenes PCR (Not Detect) N. meningitidis (PCR) (Not Detect) Proteus species (PCR) (Not Detect) Salmonella (PCR) Serratia marcescens PCR (Not Detect) Staphylococcus sp PCR (Not Detect) Staph aureus (PCR) (Not Detect) mecA-Methicil Res Gene Streptococcus sp PCR (Not Detect) Group A Strep (PCR) (Not Detect) Strep agalactiae (PCR) (Not Detect) Strep pneumoniae (PCR) (Not Detect) P. aeruginosa (PCR) (Not Detect) Parminder/B-Vanco Res Genes KPC-Carbap Res Gene PCR (Not Detect) Urine Dip Bedside Urine Glucose Negative Bedside Urine Bilirubin - Negative Bedside Urine Ketone - Negative Urine Specific [place] 1.010 Bedside Urine Occult Blood - Negative Bedside Urine pH 6 Bedside Urine Protein +/- 15 Bedside Urine Urobilinogen - Negative Bedside Urine Nitrite - Negative Bedside Urine Leukocytes - Negative Esterase MDM Narrative Medical decision making narrative: 74 year old female signed out to myself whom initially meets septic criteria. Patient appeared to have colitis on CT imaging but also had changes with the kidney as well as an adnexal mass. Seems less likely to be abscess with the kidney and adnexal changes. Urinalysis was negative. Patient stool was sent for PCR but the reagent was unavailable, it was status to [facility] but they no longer perform this test. So was sent for urine culture which will take several days to result. Patient was offered observation she defers, her vital signs have improved significantly. She continues to have intermittent diarrhea but is feeling much better. Patient was started on Bactrim and Flagyl as she has multiple allergies complicating her antibiotic choice but with her fever I feel she is appropriate to treat for infectious colitis. We did review her allergies and the seem to be the most appropriate choices at this time. All questions were answered patient was seen by myself face to face, re-evaluated and her physical exam shows a benign abdominal exam this time with no active flank pain in a nontoxic-appearing female. Patient was given strict return precautions and encouraged to return at any point if she felt she was worsening. Discharge Plan Departure Patient Disposition: Home Clinical Impression: Colitis Activity Restrictions/Additional Instructions: Follow up with your physician in the next 24-48 hours. Your imaging today show signs of colitis, I suspect this is infectious. Your stool culture is pending and will take 48-72 hours to result. Take antibiotics until completely gone. Do not drink alcohol with flagyl/metronidazole, it will make you throw up. Prescription to [facility] in [place]. There is also a mass in the left kidney with unclear cause this may be a cyst but potential for an infectious source. This needs follow up with repeat imaging. Your urine does not show any sign of infection today. There is also a 6cm mass on the right adenexa/next to the right ovary and recommend a follow up with pelvic ultrasound. Return for persistent fevers, lightheadedness, passing out, new chest pain or shortness of breath, persistent vomiting, worsening abdominal or flank pain, black or bloody stools, signs of dehydration or other new or concerning symptoms. Please have a low threshold to return if you are worsening. Prescriptions: New metronidazole [Flagyl] 500 mg tablet 500 mg PO TID Qty: 30 RF: 0 sulfamethoxazole-trimethoprim [Bactrim DS] 800-160 mg tablet 1 tab PO Q12H Qty: 20 RF: 0 No Action (DME) Glucose Test Strips 0 .Route .MEDSUPPLY Qty: 1 RF: 11 (DME) Insulin aspart sliding scale Qty: 1 RF: 0 Lantus U-100 Insulin 100 unit/mL solution 30 unit SUBCUT BID Qty: 20 RF: 11 esomeprazole magnesium 40 mg capsule,delayed release(DR/EC) 40 mg PO DAILY Qty: 90 RF: 1 enalapril maleate 20 mg tablet 20 mg PO BID Qty: 180 RF: 1 metformin [Glucophage XR] 500 mg tablet extended release 24 hr 500 mg PO SEE INSTRUCTIONS Qty: 120 RF: 5 hydrochlorothiazide 12.5 mg tablet 12.5 mg PO QAM Qty: 90 RF: 3 Novolog U-100 Insulin aspart 100 unit/mL solution 10 unit SUBCUT QAC Qty: 10 RF: 5 (DME) Syringes: 1cc Insulin Syringes with [place] 0 .Route .MEDSUPPLY Qty: 1 RF: 3 aspirin 81 mg tablet,delayed release (DR/EC) 81 mg PO DAILY RF: 0 (DME) Glucose: Home Monitor 0 .Route .MEDSUPPLY Qty: 1 RF: 1 amlodipine 10 mg tablet 10 mg PO DAILY Qty: 90 RF: 3 meclizine 25 mg tablet 25 mg PO DAILY PRN (Reason: dizziness) Qty: 30 RF: 11 hydrocortisone 1 % cream 1 applictn TOP BID PRN (Reason: itching) Qty: 30 RF: 11 Referrals: Juan Solitario MD [Primary Care Provider] -
[2020-08-20] MEDS: SODIUM CHLORIDE 0.9% 1,000 ML 1000 ML IV (16:29)
[2020-08-20] MEDS: ONDANSETRON 4 MG/2 ML INJ IV (16:29)
[2020-08-20 16:39] LABS: Reflexed Lactate in 2 Hours Y
[2020-08-20 17:19] LABS: Lactate 2HR (Lactic Acid Rflx) 1.5 mmol/L (0.7-2.1)
[2020-08-20] MEDS: VANCOMYCIN 1,500 MG/300 ML PIGGYBACK 200 MG IV (17:35)
[2020-08-21 17:47] LABS: Acinetobacter baumannii Not Detected (Not Detect); Candida albicans Not Detected (Not Detect); Candida glabrata Not Detected (Not Detect); Candida krusei Not Detected (Not Detect); Candida parapsilosis Not Detected (Not Detect); Candida tropicalis Not Detected (Not Detect); E. coli Not Detected (Not Detect); Enterobacter cloacae complex Not Detected (Not Detect); Enterobacteriaceae species Detected (Not Detect); Enterococcus species Not Detected (Not Detect); Haemophilus influenzae Not Detected (Not Detect); KPC (carbapenem-resist gene) Not Detected (Not Detect); Listeria monocytogenes Not Detected (Not Detect); Neisseria meningitidis Not Detected (Not Detect); Proteus species Not Detected (Not Detect); Pseudomonas aeruginosa Not Detected (Not Detect); Serratia marcescens Not Detected (Not Detect); Staphylococcus species Not Detected (Not Detect); Streptococcus agalactiae (Gr B Not Detected (Not Detect); Streptococcus pneumonia Not Detected (Not Detect); Streptococcus pyogenes (Gr A) Not Detected (Not Detect); Streptococcus species Not Detected (Not Detect)
== END 2020-08-20 19:25 | disposition home or self-care (01) ==
PROVIDERS: Nurse Practitioner Family; Emergency Provider Emergency Medicine; PCP Student in an Organized Health Care Education/Training Program
DX: K52.9 Noninfective gastroenteritis and colitis, unspecified (principal); R11.2 Nausea with vomiting, unspecified; I10 Essential (primary) hypertension; N18.9 Chronic kidney disease, unspecified; E11.8 Type 2 diabetes mellitus with unspecified complications; Z79.4 Long term (current) use of insulin; Z20.822 Contact with and (suspected) exposure to COVID-19; R00.0 Tachycardia, unspecified; R19.09 Other intra-abdominal and pelvic swelling, mass and lump
CPT/HCPCS: 36415; 71045; 74177; 80053; 81003; 83605; 83690; 84145; 85025; 85610; 85730; 87040; 87045; 87046; 87077; 87150; 87186; 87205; 87635; 87899; 93005; 93010; 96361; 96365; 96366; 96375; 99284; C9803; J2405; Q9967

== ENCOUNTER → 2020-09-08 16:10 | Outpatient (CLI) | payer MEDICARE, OTHER, SELFPAY | PROVIDERS: PCP Student in an Organized Health Care Education/Training Program; Visit Provider Nurse Practitioner | DX: N34.3 Urethral syndrome, unspecified (principal); N89.8 Other specified noninflammatory disorders of vagina | CPT/HCPCS: 87086; 87210 ==

== ENCOUNTER → 2020-09-19 12:06 | Outpatient (CLI) | payer MEDICARE, OTHER, SELFPAY ==
--- NOTE | 2020-09-19 12:08 | DI.US.S_ITS ---
PROCEDURE: US PELVIC COMPLETE INDICATIONS: RIGHT ADNEXAL MASS ON CT TECHNIQUE: Real-time scanning was performed of the pelvic organs, with image documentation. Additional endovaginal scanning was necessary due to incomplete visualization of the adnexal and endometrial structures by transabdominal scanning. COMPARISON: [facility], CT, CT ABDOMEN PELVIS W CON, 08/20/2020, 15:27. FINDINGS: Uterus: Uterus has been removed. Ovaries: The ovaries are not visualized. Within the right adnexal region there is a 4.8 x 4.1 x 3.8 cm solid-appearing mass with areas of internal vascularity. Other: No pathologic free abdominal or pelvic fluid. IMPRESSION: Right adnexal mass appearing solid as above. This corresponds to mass lesion identified on CT abdomen pelvis of 08/20/2020. Etiology is indeterminate on the basis of this examination. Given patient's age, neoplasm cannot be excluded. Pelvic MRI is recommended for further evaluation. Dictated by: Laury Padilla M.D. on 09/19/2020 at 19:55 Approved by: Laury Padilla M.D. on 09/19/2020 at 19:57
== END ==
PROVIDERS: PCP Student in an Organized Health Care Education/Training Program; Referring Provider Student in an Organized Health Care Education/Training Program; Visit Provider Student in an Organized Health Care Education/Training Program
DX: N94.89 Other specified conditions associated with female genital organs and menstrual cycle (principal); Z90.710 Acquired absence of both cervix and uterus
CPT/HCPCS: 76830; 76856

== ENCOUNTER → 2020-09-22 12:25 | Outpatient (CLI) | payer MEDICARE, OTHER, SELFPAY ==
--- NOTE | 2020-09-22 12:26 | DI.CT.S_ITS ---
PROCEDURE: CT ABDOMEN WO CON INDICATIONS: Re-eval left renal mass on recent CT; colitis resolved TECHNIQUE: After the administration of oral contrast, 5 mm thick sections acquired from the diaphragms to the iliac crests. 5 mm coronal and sagittal reformats were then performed. For radiation dose reduction, the following was used: automated exposure control, adjustment of mA and/or kV according to patient size. COMPARISON: [facility], CT, CT ABDOMEN PELVIS W [facility], 08/20/2020, 15:27. FINDINGS: Image quality: Excellent. Lung bases: Lung bases are clear. Heart size is normal. Solid organs: Liver is normal in size. Gallbladder is surgically absent.. Pancreas is normal in contours. Spleen is normal in size. No adrenal nodules. A hyperdense lesion is seen in the superior pole of the left kidney with a CT number of approximately 42 Hounsfield units, which is similar in attenuation when compared to the prior contrast enhanced exam. No surrounding inflammatory fat stranding is identified. A punctate 1-2 mm calculus is seen in the interpolar region of the left kidney. There is a 4 mm nonobstructing calculus in the right kidney. There is no hydronephrosis. Peritoneum and bowel: Bowel loops demonstrate normal wall thickness and caliber. No free fluid or air. Nodes and vessels: No retroperitoneal or mesenteric adenopathy by size criteria. Aorta and inferior vena cava are normal in size. Bones: No suspicious bony lesions. No vertebral body compression fractures. Multilevel degenerative changes are seen in the spine. Miscellaneous: Tiny fat containing periumbilical hernia. IMPRESSION: Mildly hyperattenuating lesion at the superior pole of the left kidney does not appear significantly changed in size or density when compared to the CT from 08/20/2020, most likely representing a proteinaceous or hemorrhagic cyst although a solid mass is not excluded. Consider renal ultrasound to evaluate if the lesion is cystic or solid versus a follow-up contrast-enhanced renal protocol MRI or CT. Dictated by: Vargas Franklin M.D. on 09/22/2020 at 14:43 Approved by: Vargas Franklin M.D. on 09/22/2020 at 14:55
== END ==
PROVIDERS: PCP Student in an Organized Health Care Education/Training Program; Referring Provider Student in an Organized Health Care Education/Training Program; Visit Provider Student in an Organized Health Care Education/Training Program
DX: N28.89 Other specified disorders of kidney and ureter (principal)
CPT/HCPCS: 74150

== ENCOUNTER → 2020-09-26 13:05 | Outpatient (CLI) | payer MEDICARE, OTHER, SELFPAY ==
[2020-09-26 13:47] LABS: Hemoglobin A1C% w Est Avg Glu 7.9 % (4.0-6.0)
[2020-09-26 13:57] LABS: BUN Creatinine Ratio 19.4 (6-22); Blood Urea Nitrogen 19 mg/dL (7-17); Estimated Glomerular Filt Rate 55.3 mL/min (>60)
[2020-09-26 14:31] LABS: Cancer Antigen 125 8.3 U/mL (0-35); Carcinoembryonic Antigen 5.2 ng/mL (0.1-3.0)
[2020-09-27 06:46] LABS: Cancer (Carbohydrate) Ag 19-9 108 U/mL (0-35)
== END ==
PROVIDERS: PCP Student in an Organized Health Care Education/Training Program; Referring Provider Obstetrics & Gynecology; Visit Provider Obstetrics & Gynecology
DX: N83.8 Other noninflammatory disorders of ovary, fallopian tube and broad ligament (principal); E11.21 Type 2 diabetes mellitus with diabetic nephropathy; E11.610 Type 2 diabetes mellitus with diabetic neuropathic arthropathy; R19.09 Other intra-abdominal and pelvic swelling, mass and lump
CPT/HCPCS: 36415; 82378; 82565; 83036; 84520; 86301; 86304; 86305

== ENCOUNTER → 2020-10-03 14:05 | Outpatient (CLI) | payer MEDICARE, OTHER, SELFPAY ==
--- NOTE | 2020-10-03 14:06 | DI.US.S_ITS ---
PROCEDURE: US RENAL COMPLETE INDICATIONS: mass on lt kidney TECHNIQUE: Real-time scanning was performed of the kidneys and bladder, with image documentation. COMPARISON: [facility], CT, PE STUDY (CTA CHEST), 03/26/2013, 18:45. [facility], CT, CT ABDOMEN WO CON, 09/22/2020, 12:34. FINDINGS: Kidneys: Right kidney. The right kidney measures 11.0 centimeters in length. There is no hydronephrosis. Multiple subcentimeter simple cortical cysts are seen. Left kidney the left kidney measures 11.4 centimeters in length. There is no hydronephrosis. Multiple subcentimeter simple cortical cysts are seen. In the superior pole of the left kidney there is a 2.3 x 1.5 x 2.2 centimeter hypoechoic well-circumscribed mass with posterior acoustic enhancement most consistent with a cyst. This corresponds with the hyperdense mass seen on CT. Bladder: Pre-void bladder volume is 96 mL. Post-void residual is 0 mL. Pre-void images demonstrate no intraluminal masses or stones. On pre-void images, neither right nor left ureteral jets are noted with color Doppler interrogation. (Of note, ureteral jets may not be detectable in up to 25% of cases due to insufficient differences in specific gravity between ureteral and bladder urine). Miscellaneous: No free pelvic fluid. IMPRESSION: Simple cyst of the superior pole of the left kidney corresponds with CT findings on 09/22/2020. Dictated by: Marco Low M.D. on 10/03/2020 at 16:20 Approved by: Marco Low M.D. on 10/03/2020 at 16:28
== END ==
PROVIDERS: PCP Student in an Organized Health Care Education/Training Program; Referring Provider Student in an Organized Health Care Education/Training Program; Visit Provider Student in an Organized Health Care Education/Training Program
DX: N28.1 Cyst of kidney, acquired (principal)
CPT/HCPCS: 76770

== ENCOUNTER → 2020-10-16 14:40 | Outpatient (CLI) | payer MEDICARE, OTHER, SELFPAY ==
[2020-10-16 17:09] LABS: Cancer Antigen 125 8.4 U/mL (0-35)
[2020-10-17 06:41] LABS: Cancer (Carbohydrate) Ag 19-9 111 U/mL (0-35)
== END ==
PROVIDERS: PCP Student in an Organized Health Care Education/Training Program; Referring Provider Obstetrics & Gynecology; Visit Provider Obstetrics & Gynecology
DX: N83.8 Other noninflammatory disorders of ovary, fallopian tube and broad ligament (principal); R19.09 Other intra-abdominal and pelvic swelling, mass and lump
CPT/HCPCS: 36415; 82378; 86301; 86304; 87045; 87899

== ENCOUNTER 2020-11-29 20:39 | Observation (INO) | payer MEDICARE, OTHER, SELFPAY ==
[2020-11-29 20:40] VITALS: BP 177/79; PULSE 90; RESP 18; TEMP 37.2; O2SAT 97
--- NOTE | 2020-11-29 20:48 | ED.ABDPAIN ---
HPI - Abdominal Pain General Chief Complaint: Skin/Abscess/Foreign Body Stated Complaint: recent surgery, incision is weeping, nausea Time Seen by Provider: 11/29/20 20:42 Source: patient and family Mode of arrival: Ambulatory Limitations: no limitations History of Present Illness HPI narrative: 75-year-old female nonsmoker with history of hypertension and GERD presents with her son and a chief complaint of increasing pain, purulence drainage and generally feeling unwell for the past few days. She recently had an abdominal pelvic surgery at the [facility] (L ovary) which went well and had been doing well as an outpatient until the past few days. She feels generally weak, wants to sleep and has had subjective fever and nausea. She has pain in her left lower quadrant and anterior abdomen that seems to be worse when she moves and improves with rest. She has been draining from an incision over the past day or 2. She did reach out to the surgical team and was encouraged to come to the closest appropriate facility for evaluation. She denies any chest pain or shortness of breath. She denies any vaginal bleeding, discharge, urinary complaints or pain with bowel movements. MD complaint: abdominal pain Onset (ago): day(s) Pain Consistency: constant Location: LLQ Severity: moderate Quality: cramping and aching Radiation: none Migration to: no migration Relieving factors: rest Exacerbating factors: movement Associated symptoms: nausea and fever Related Data Home Medications Medication Instructions Recorded Confirmed aspirin 81 mg tablet,delayed 81 mg PO DAILY 12/03/18 11/03/20 release Previous Rx's Medication Instructions Recorded Glucose Test Strips #1 ea 12/26/18 Glucose: Home Monitor #1 ea 12/26/18 hydrocortisone 1 % topical cream 1 applictn TOP BID PRN #30 gram 05/23/20 meclizine 25 mg tablet 25 mg PO DAILY PRN #30 tab 05/23/20 metformin 500 mg tablet,extended 500 mg PO SEE INSTRUCTIONS #120 tab 06/12/20 release 24 hr hydrochlorothiazide 12.5 mg tablet 12.5 mg PO QAM #90 tab 06/18/20 insulin aspart U-100 100 unit/mL 10 unit SUBCUT QA #10 ml 06/18/20 subcutaneous solution Syringes: 1cc Insulin Syringes #1 ea 07/17/20 with [place] metronidazole [Flagyl] 500 mg PO TID #30 tab 08/20/20 amlodipine 10 mg tablet 10 mg PO DAILY #90 tab 08/26/20 enalapril maleate 20 mg tablet 20 mg PO BID #180 tab 08/26/20 esomeprazole magnesium 40 mg 40 mg PO DAILY #90 cap 10/20/20 capsule,delayed release insulin detemir U-100 100 unit/mL 30 unit SUBCUT BID #20 ml 10/31/20 subcutaneous solution Allergies Allergy/AdvReac Type Severity Reaction Status Date / Time amoxicillin [AMOXICILLIN] Allergy Severe nausea and Verified 11/29/20 21:04 rash ibuprofen [IBUPROFEN] Allergy Severe swelling Verified 11/29/20 21:04 and hives levofloxacin [LEVOFLOXACIN] Allergy Severe throat Verified 11/29/20 21:04 swelling/vomiting nitrofurantoin Allergy Severe hospitaliza Verified 11/29/20 21:04 [From MACROBID] tion indapamide [From LOZOL] Allergy Mild Verified 11/29/20 21:04 morphine [MORPHINE] AdvReac Severe climb the Verified 11/29/20 21:04 wall/hallucinations atorvastatin [ATORVASTATIN] AdvReac Intermediate myalgias Verified 11/29/20 21:04 simvastatin [From ZOCOR] AdvReac Intermediate myalgias Verified 11/29/20 21:04 Review of Systems Constitutional Constitutional: Reports chills, Denies fatigue, Reports fever(s), Denies frequent falls, Denies lethargy and Denies weakness Eyes Eyes: Denies change in vision, Denies eye discharge, Denies irritation and Denies loss of vision ENT Ears, Nose, Mouth, and Throat: Denies change in voice, Denies dizziness, Denies neck pain, Denies sore throat and Denies throat swelling Cardiovascular Cardiovascular: Denies chest pain, Denies irregular heart rhythm, Denies lightheadedness, Denies palpitations, Denies dyspnea, Denies dyspnea on exertion and Denies orthopnea Respiratory Respiratory: Denies cough, Denies dyspnea, Denies dyspnea on exertion and Denies wheezing Gastrointestinal Gastrointestinal: Reports abdominal pain, Denies change in bowel habits, Denies diarrhea, Reports nausea and Denies vomiting Musculoskeletal Musculoskeletal: Denies neck pain and Denies numbness Integumentary/Breasts Skin/Breast: Denies pruritus, Denies erythema, Denies rash and Denies wounds Neurologic Neurologic: Denies behavioral changes, Denies confusion, Denies dizziness, Denies frequent falls, Denies loss of vision, Denies numbness and Denies weakness Psychiatric Psychiatric: Denies anxiety, Denies behavioral changes, Denies confusion, Denies depression, Denies homicidal ideation and Denies suicidal ideation Endocrine Endocrine: Denies fatigue, Denies flushing and Denies palpitations Hematologic/Lymphatic Hematologic/Lymphatic: Denies easy bruising Allergic/Immunologic Allergic/Immunologic: Denies urticaria, Denies throat swelling and Denies wheezing Patient History Medical History BPPV (benign paroxysmal positional vertigo) Diabetes mellitus GERD (gastroesophageal reflux disease) History of vaginal delivery Hormone replacement therapy Lumbar radiculopathy Surgical History History of bladder surgery History of breast biopsy History of cholecystectomy History of hysterectomy History of laminectomy (~2016) History of lymph node excision Family History Father Cancer Mother CVA (cerebral vascular accident) Social History Smoking Status: Never smoker alcohol intake: never substance use type: does not use Smoking Status: Never smoker alcohol intake frequency: other Substance Use Type: does not use Exam Narrative Exam Narrative: GENERAL: [75] year old patient appears stated age. Well-nourished, well-developed patient, in mild distress. HEAD: Atraumatic. Normocephalic. EYES: Pupils equal round and reactive. Extraocular motions intact. No scleral icterus. No injection or drainage. ENT: Nose without bleeding, purulent drainage. Throat without erythema, tonsillar hypertrophy or exudate. Airway patent. NECK: Trachea midline. Non tender CARDIOVASCULAR: Regular rate and rhythm without murmurs, gallops, or rubs. RESPIRATORY: Clear to auscultation. Breath sounds equal bilaterally. No wheezes, rales, or rhonchi. GASTROINTESTINAL: Abdomen soft, tenderness in the left lower quadrants with incisional wound dehiscence and drainage of purulence foul-smelling material, no obvious pain on palpation deep in the abdomen EXTREMITIES: No edema or joint tenderness. BACK: Nontender without deformity or crepitance. No flank tenderness. NEURO: AOx3. 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) Stat Vancomycin HCl/Dextrose (Vancomycin) 1,500 mg in 300 mls @ 200 mls/hr IV NOW ONE Stop: 11/30/20 01:06 Last Admin: 11/29/20 23:53 Dose: 200 mls/hr Documented by: DORIS Ondansetron HCl (Ondansetron 4 Mg/2 Ml Inj) 4 mg IV Q4HR PRN PRN Reason: Nausea And Vomiting Last Admin: 11/29/20 21:10 Dose: 4 mg Documented by: MASTER Discontinued Medications Sodium Chloride (Normal Saline 0.9%) 500 mls @ 1,000 mls/hr IV BOLUS ONE Stop: 11/29/20 21:17 Last Infusion: 11/29/20 22:26 Dose: 0 mls/hr Documented by: Admin: 11/29/20 21:10 Dose: 1,000 mls/hr Documented by: MASTER Consultations Consultation #1: 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 Given her stable vitals, reassuring labs, and CT demonstrating no obvious surgical findings she requests that we keep the patient here, initiate IV antibiotics and perform serial abdominal exams. She was very quick to mention that should any clinical picture change or her scenario worsen that they would be reachable and ready to help, recognizing this is a complication from their surgery. Consultation #2: hospitalist happy to accept Vital Signs Vital signs: Vital Signs - 8 hr 11/29/20 20:40 11/29/20 22:52 11/29/20 22:54 Temperature 98.9 F Pulse Rate 90 81 73 Respiratory Rate 18 Blood Pressure 177/79 H 138/63 Pulse Oximetry 97 90 L 98 11/29/20 23:59 Temperature Pulse Rate 80 Respiratory Rate 16 Blood Pressure 154/75 H Pulse Oximetry 98 MDM - Abdominal Pain Lab Data Result diagrams: 11/29/20 20:56 11/29/20 20:56 Labs: Lab Results 11/29/20 11/29/20 11/29/20 Range/Units 20:56 20:56 20:56 WBC 9.8 (4.5-11.0) X10^3/uL RBC 3.36 L (4.0-5.2) X10^6/uL Hgb 9.2 L (12.0-16.0) g/dL Hct 28.5 L (36-46) % MCV 84.9 (80-100) fL MCH 27.5 (26-34) PG MCHC 32.4 (30-36) % RDW 15.7 H (11.6-14.8) % Plt Count 292 (150-400) X10^3/uL Neut % (Auto) 61.1 (50-75) % Lymph % (Auto) 26.3 (25-40) % [place] % (Auto) 8.8 (3-14) % Eos % (Auto) 3.4 (2-4) % Baso % (Auto) 0.4 (0-2) % Neut # (Auto) 6000 (1140-4102) /uL Lymph # (Auto) 2600 (1491-6548) /uL [place] # (Auto) 900 (0-900) /uL Eos # (Auto) 300 (0-450) /uL Baso # (Auto) 0 (0-100) /uL Sodium 137 (137-145) mmol/L Potassium 4.8 (3.4-5.1) mmol/L Chloride 106 (98-107) mmol/L Carbon Dioxide 20 L (22-32) mmol/L BUN 23 H (7-17) mg/dL Creatinine 1.04 (0.52-1.04) mg/dL Estimated GFR 51.5 L (>60) mL/min BUN/Creatinine Ratio 22.1 H (6-22) Glucose 235 H (80-110) mg/dL Lactate 1.9 (0.7-2.1) mmol/L Calcium 10.2 (8.4-10.2) mg/dL Total Bilirubin 0.1 L (0.2-1.3) mg/dL AST 38 H (14-36) IU/L ALT 26 (<35) IU/L Alkaline Phosphatase 85 (38-126) U/L Total Protein 7.3 (6.3-8.2) g/dL Albumin 4.1 (3.5-5.0) g/dL Globulin 3.2 (1.7-4.1) g/dL Albumin/Globulin Ratio 1.3 (1.0-2.8) Imaging Data CT scan - abdomen/pelvis: Radiologist's Impression: [address] [id number] Scan ReportSigned Patient: Frida Britt [facility]#: [id number]: 5Acct:[id number]/Sex: 75 / FDate of Service: 11/29/20Loc: EDAccession Number: [id number] Procedure: CT abdomen pelvis w con Ordering Provider: Christofer Sanchez D.O. PROCEDURE: CT ABDOMEN PELVIS W CON INDICATIONS: recent pelvic surgery, feels ill, wound draining pus, painfu TECHNIQUE: After the administration of intravenous contrast, 5 mm thick sections acquired from the diaphragm to the symphysis. 5 mm coronal and sagittal reformats were acquired. For radiation dose reduction, the following was used: automated exposure control, adjustment of mA and/or kV according to patient size. COMPARISON: [facility], CT, CT ABDOMEN WO CON, 09/22/2020, 12:34. [facility], US, US PELVIC COMPLETE, 09/19/2020, 12:22. [facility], CT, CT ABDOMEN PELVIS W CON, 08/20/2020, 15:27. [facility], CT, ABDOMEN/PELVIS WITH CONTRAST, 01/18/2011, 16:06. FINDINGS: Image quality: Excellent. ABDOMEN: Lung bases: Lung bases are clear. Heart size is normal. Solid organs: Liver is normal in size and enhancement. Gallbladder is surgically absent. Persistent extrahepatic biliary dilatation of the common bile duct likely related to prior cholecystectomy. This is not significantly changed. Intrahepatic biliary system is non dilated. Pancreas enhances normally. No peripancreatic inflammatory changes. No pancreatic ductal dilatation. Spleen is normal in size and enhancement. No adrenal nodules. Kidneys demonstrate normal size and enhancement, without hydronephrosis. 4 mm right renal calcification likely representing nonobstructing stone. This is stable. Stable appearance of superior pole left renal cyst. Peritoneum and bowel: Bowel loops demonstrate normal wall thickness and caliber. No free fluid or air. Nodes and vessels: No retroperitoneal or mesenteric adenopathy by size criteria. Aorta and inferior vena cava are normal in size. Scattered atherosclerotic calcifications of the abdominal aorta and iliac vessels without aneurysmal dilatation. Miscellaneous: Tiny fat containing umbilical hernia without acute inflammation. There is diffuse subcutaneous soft tissue edema and overlying skin thickening involving the anterior lower abdominal wall noted inferior to the fold of her pannus. There is an apparent tract leading from the skin surface the left anterior abdominal wall, likely representing site of laparoscopic access. There is associated thickening of the left anterior abdominal wall musculature at this site with ill-defined heterogeneous focus measuring 2.6 x 6.4 cm in transverse cross-sectional dimension (image 70, series 2). This likely represents combination swollen anterior wall musculature and inflammatory changes. Few locules of gas noted in the superficial margins. No organized fluid collection noted. Inflammatory changes are noted deep to the musculature with mild stranding of the intraperitoneal fat. It is contiguous with underlying loops of small bowel. No definite communication with underlying bowel. No peritoneal cavity fluid collection identified. No evidence abnormal bowel wall thickening underlying area. There is also a 2nd focus of subcutaneous soft tissue stranding along the lateral, lower anterior abdominal wall which has not changed significantly compared to prior studies and likely chronic in etiology. This may represent subcutaneous injection site. PELVIS: Genitourinary: Urinary bladder wall thickness appears normal for degree of distension. Status post hysterectomy. Previously described right adnexal mass is no longer visualized and presumably surgically excised. Miscellaneous: No inguinal hernias. No pelvic adenopathy. Bones: No suspicious bony lesions. No acute vertebral body compression fractures. IMPRESSION: 1. There are superficial subcutaneous soft tissue inflammatory changes of the left lower anterior abdominal wall extending from the skin surface to the left anterior abdominal wall musculature with tract of subcutaneous air and fluid likely related to prior laparoscopic access site. There is an ill-defined heterogeneous focus measuring approximately 2.6 x 6.4 cm involving the left anterior dominant wall which likely represent combination of swollen musculature and surrounding inflammation. No evidence for abscess formation or drainable fluid collection at this time. No evidence for extension into the peritoneal cavity. However, there is peritoneal soft tissue stranding underlying this region which extends to the adjacent loops of small bowel. No definite communication with bowel although this is not suspected. No intraperitoneal fluid collection or abscess seen. There is mild overlying skin thickening which may represent concurrent cellulitis. 2. Previously described right adnexal mass is no longer visualized and consistent with recent laparoscopic surgical excision. 3. Status post cholecystectomy with persistent extrahepatic dilatation of the common bile duct, likely related to post cholecystectomy physiologic dilatation. 4. Stable appearance of superior pole left renal cyst. Other chronic findings as above. Acute findings were discussed telephonic late with Dr. Sanchez of the emergency department. Dictated by: Luke Thrasher M.D. on 11/29/2020 at 22:17 Approved by: Luke Thrasher M.D. on 11/29/2020 at 22:43 Discharge Plan Departure Patient Disposition: Admitted As Inpatient Clinical Impression: Complication, postoperative infection, Abdominal wound dehiscence Admit Date/Time: 11/30/20 00:04 Admit Provider: Sanna Watson
[2020-11-29] MEDS: SODIUM CHLORIDE 0.9% 500 ML 1000 ML IV (21:10)
[2020-11-29] MEDS: ONDANSETRON 4 MG/2 ML INJ IV (21:10)
[2020-11-29 21:12] LABS: Add Manual Diff / Slide Review NO; Basophils Absolute Auto 0 /uL (0-100); Basophils Percent Auto 0.4 % (0-2); Eosinophils Absolute Auto 300 /uL (0-450); Eosinophils Percent Auto 3.4 % (2-4); Hematocrit 28.5 % (36-46); Hemoglobin 9.2 g/dL (12.0-16.0); Lymphocytes Absolute Auto 2600 /uL (1100-4500); Lymphocytes Percent Auto 26.3 % (25-40); Mean Corpuscular HGB Conc 32.4 % (30-36); Mean Corpuscular Hemoglobin 27.5 PG (26-34); Mean Corpuscular Volume 84.9 fL (80-100); Monocytes Absolute Auto 900 /uL (0-900); Monocytes Percent Auto 8.8 % (3-14); Neutrophils Absolute Auto 6000 /uL (1500-7000); Neutrophils Percent Auto 61.1 % (50-75); Platelet Count 292 X10^3/uL (150-400); Red Blood Cell Count 3.36 X10^6/uL (4.0-5.2); Red Cell Distribution Width 15.7 % (11.6-14.8); White Blood Cell Count 9.8 X10^3/uL (4.5-11.0)
[2020-11-29 21:17] LABS: Lactate (Lactic Acid) 1.9 mmol/L (0.7-2.1)
[2020-11-29 21:18] LABS: Alanine Aminotransferase 26 IU/L (<35); Albumin 4.1 g/dL (3.5-5.0); Albumin Globulin Ratio 1.3 (1.0-2.8); Alkaline Phosphatase 85 U/L (38-126); Aspartate Aminotransferase 38 IU/L (14-36); BUN Creatinine Ratio 22.1 (6-22); Bilirubin Total 0.1 mg/dL (0.2-1.3); Blood Urea Nitrogen 23 mg/dL (7-17); Calcium 10.2 mg/dL (8.4-10.2); Carbon Dioxide 20 mmol/L (22-32); Chloride 106 mmol/L (98-107); Estimated Glomerular Filt Rate 51.5 mL/min (>60); Globulin 3.2 g/dL (1.7-4.1); Glucose 235 mg/dL (80-110); HEMOLYSIS < 15 (0-50); Potassium 4.8 mmol/L (3.4-5.1); Sodium 137 mmol/L (137-145); Total Protein 7.3 g/dL (6.3-8.2)
[2020-11-29 22:52] VITALS: PULSE 81; O2SAT 90
[2020-11-29 22:54] VITALS: BP 138/63; PULSE 73; O2SAT 98
[2020-11-29] MEDS: VANCOMYCIN 1,500 MG/300 ML PIGGYBACK 200 MG IV (23:53)
[2020-11-29 23:59] VITALS: BP 154/75; PULSE 80; RESP 16; O2SAT 98
[2020-11-30 00:51] LABS: COVID19 - ADMIT (NP swab/PCR) Negative (Negative)
[2020-11-30 00:58] VITALS: BP 167/87; PULSE 78; RESP 18; TEMP 36.2; O2SAT 99; BMI 33.4
[2020-11-30 02:10] LABS: Magnesium 0.8 mg/dL (1.6-2.3)
[2020-11-30] MEDS: MAGNESIUM SULFATE 2 GM/50 ML PIGGYBACK IV ×2 (02:47→09:57)
--- NOTE | 2020-11-30 02:57 | PM.HP.1 ---
History of Present Illness History of Present Illness Date Patient Seen: 11/30/20 Time Patient Seen: 01:45 Chief complaint: recent surgery, incision is weeping, nausea Narrative: Frida Britt is a 75 y.o. female with diabetes type 2, essential hypertension, and obesity who is 9 days post op laparascopic removal of an ovarian adnexal mass done at the [facility]. She is obese and has an abdominal pannus and the largest laparoscopic incision is underneath her pannus. She noticed that as she was changing her dressings she notice that the dressings were wet. She then looked at the wound and it appeared to be losing clear yellow fluid. She states that it is the most painful area because the adnexal mass had to be pulled out of that area and they had to excise a longer incision. She felt like initially she had chills and was is not feeling well. She contacted the [facility] who then had her going to the emergency department to have this further assessed. Per the ED emergency room provider she has a small dehiscence of the wound and when they did a CT scan of of her abdomen there did not seem to be a deep abscess at this point. They spoke to the on-call superintendent house at [facility] and they felt that the patient could be managed here with IV vancomycin for the next 24 hours and if the wound appear to open up more to contact him back. CT of the abdomen indicated the following finding ?There is diffuse subcutaneous soft tissue edema and overlying skin thickening involving the anterior lower abdominal wall noted inferior to the fold of her pannus. There is an apparent tract leading from the skin surface the left anterior abdominal wall, likely representing site of laparoscopic access. There is associated thickening of the left anterior abdominal wall musculature at this site with ill-defined heterogeneous focus measuring 2.6 x 6.4 cm in transverse cross-sectional dimension (image 70, series 2). This likely represents combination swollen anterior wall musculature and inflammatory changes. Few locules of gas noted in the superficial margins. No organized fluid collection noted. Inflammatory changes are noted deep to the musculature with mild stranding of the intraperitoneal fat. It is contiguous with underlying loops of small bowel. No definite communication with underlying bowel. No peritoneal cavity fluid collection identified. No evidence abnormal bowel wall thickening underlying area. There is also a 2nd focus of subcutaneous soft tissue stranding along the lateral, lower anterior abdominal wall which has not changed significantly compared to prior studies and likely chronic in etiology. This may represent subcutaneous injection site. Patient is afebrile, blood pressure 167/87, heart rate 78, respiratory rate 18, oxygen saturation 99% on room air, she weighs 83.3 kg and has a BMI of 33.4. CBC is essentially unremarkable, with the exception of a EGFR 51.5 and a glucose of 235 her chemistries are within normal limits however she is extremely low on magnesium 0.8 which was the case during her hospital stay at the [facility]. COVID-19 PCR is negative. Patient History Medical History BPPV (benign paroxysmal positional vertigo) Diabetes mellitus Essential hypertension GERD (gastroesophageal reflux disease) History of vaginal delivery Hormone replacement therapy Hypomagnesemia Lumbar radiculopathy Surgical History History of bladder surgery History of breast biopsy History of cholecystectomy History of hysterectomy History of laminectomy (~2015) History of lymph node excision Family & Social History Family History Father Cancer Mother CVA (cerebral vascular accident) Social History: household members children Prior Living Arrangements House Safety & Behavioral: Feels Safe in Current Yes Environment Been Physically Hurt or No Threatened By a Person Suicidal Ideation Description None Suicide Plan Description No Plan Tobacco & Substance use: Smoking Status Never smoker alcohol intake never alcohol intake frequency other Substance Use Type does not use Meds Home Medications and Allergies Home Medications Medication Instructions Recorded Confirmed Type aspirin 81 mg tablet,delayed 81 mg PO DAILY 12/03/18 11/30/20 History release Glucose Test Strips #1 ea 12/26/18 11/03/20 Rx Glucose: Home Monitor #1 ea 12/26/18 11/03/20 Rx meclizine 25 mg tablet 25 mg PO DAILY PRN #30 tab 05/23/20 11/30/20 Rx metformin 500 mg tablet,extended 500 mg PO SEE INSTRUCTIONS #120 tab 06/12/20 11/30/20 Rx release 24 hr hydrochlorothiazide 12.5 mg tablet 12.5 mg PO QAM #90 tab 06/18/20 11/30/20 Rx insulin aspart U-100 100 unit/mL 10 unit SUBCUT QAC #10 ml 06/18/20 11/30/20 Rx subcutaneous solution Syringes: 1cc Insulin Syringes #1 ea 07/17/20 11/03/20 Rx with [place] amlodipine 10 mg tablet 10 mg PO DAILY #90 tab 08/26/20 11/30/20 Rx enalapril maleate 20 mg tablet 20 mg PO BID #180 tab 08/26/20 11/30/20 Rx esomeprazole magnesium 40 mg 40 mg PO DAILY #90 cap 10/20/20 11/30/20 Rx capsule,delayed release insulin detemir U-100 100 unit/mL 30 unit SUBCUT BID #20 ml 10/31/20 11/30/20 Rx subcutaneous solution fluconazole 200 PO DAILY 11/30/20 History Allergies Allergy/AdvReac Type Severity Reaction Status Date / Time amoxicillin [AMOXICILLIN] Allergy Severe nausea and Verified 11/29/20 21:04 rash ibuprofen [IBUPROFEN] Allergy Severe swelling Verified 11/29/20 21:04 and hives levofloxacin [LEVOFLOXACIN] Allergy Severe throat Verified 11/29/20 21:04 swelling/vomiting nitrofurantoin Allergy Severe hospitaliza Verified 11/29/20 21:04 [From MACROBID] tion indapamide [From LOZOL] Allergy Mild Verified 11/29/20 21:04 morphine [MORPHINE] AdvReac Severe climb the Verified 11/29/20 21:04 wall/hallucinations atorvastatin [ATORVASTATIN] AdvReac Intermediate myalgias Verified 11/29/20 21:04 simvastatin [From ZOCOR] AdvReac Intermediate myalgias Verified 11/29/20 21:04 Review of Systems Review of Systems Narrative: Positives: ?Generally run down, incisional pain, transient chills. Negatives: Denies fever, sweats, shortness of breath, chest pain, orthopnea, shortness of breath, nausea or vomiting, dysuria or hematuria, diarrhea or constipation, easy bleeding or bruising. Exam Vital Signs (past 8 hours): - 11/29/20 20:40 11/29/20 22:52 11/29/20 22:54 Temperature 98.9 F Pulse Rate 90 81 73 Respiratory Rate 18 Blood Pressure 177/79 H 138/63 Pulse Oximetry 97 90 L 98 11/29/20 23:59 11/30/20 00:58 Temperature 97.1 F L Pulse Rate 80 78 Respiratory Rate 16 18 Blood Pressure 154/75 H 167/87 H Pulse Oximetry 98 99 Oxygen Delivery Method Room Air Oxygen Flow Rate 0 Narrative Exam Narrative: Gen: Alert, oriented, obese 75 y.o. female, fatigued HEENT: normocephalic, atraumatic, conjunctiva clear, sclera non-icteric, oral mucosa pink and moist Neck: supple, full ROM, no JVD, trachea is midline Resp: Lungs CTA, non-labored breathing CV: RRR, no murmur or rubs Abd: soft, tender, normoactive BTs, multiple bruises in lower pelvic region Skin: 3 horizonal incision between pannus and suprapubic mons is open on her left side extending approximately 1 cm. Not currently w/discharge, but dressings were wet. Other laproscopic incisions appear to be healing well. Neuro: Alert and oriented X 4 w/no focal deficits. Speech clear and coherent. Extremities: bilateral +1 pitting edema, moves all 4 extremities, is ambulatory, negative Maunel?s sign Psyche: normal mood and affect. Objective Labs Result Diagrams: 11/29/20 20:56 11/29/20 20:56 Labs: Laboratory Results - last 24 hr 11/29/20 11/29/20 11/29/20 20:56 20:56 20:56 WBC 9.8 RBC 3.36 L Hgb 9.2 L Hct 28.5 L MCV 84.9 MCH 27.5 MCHC 32.4 RDW 15.7 H Plt Count 292 Neut % (Auto) 61.1 Lymph % (Auto) 26.3 [place] % (Auto) 8.8 Eos % (Auto) 3.4 Baso % (Auto) 0.4 Neut # (Auto) 6000 Lymph # (Auto) 2600 [place] # (Auto) 900 Eos # (Auto) 300 Baso # (Auto) 0 Sodium 137 Potassium 4.8 Chloride 106 Carbon Dioxide 20 L BUN 23 H Creatinine 1.04 Estimated GFR 51.5 L BUN/Creatinine Ratio 22.1 H Glucose 235 H Lactate 1.9 Calcium 10.2 Magnesium Total Bilirubin 0.1 L AST 38 H ALT 26 Alkaline Phosphatase 85 Total Protein 7.3 Albumin 4.1 Globulin 3.2 Albumin/Globulin Ratio 1.3 SARS-CoV-2 (PCR) 11/29/20 11/29/20 20:56 23:50 WBC RBC Hgb Hct MCV MCH MCHC RDW Plt Count Neut % (Auto) Lymph % (Auto) [place] % (Auto) Eos % (Auto) Baso % (Auto) Neut # (Auto) Lymph # (Auto) [place] # (Auto) Eos # (Auto) Baso # (Auto) Sodium Potassium Chloride Carbon Dioxide BUN Creatinine Estimated GFR BUN/Creatinine Ratio Glucose Lactate Calcium Magnesium 0.8 L* Total Bilirubin AST ALT Alkaline Phosphatase Total Protein Albumin Globulin Albumin/Globulin Ratio SARS-CoV-2 (PCR) Negative Assessment & Plan Assessment & Plan narrative: Miladis Britt will be admitted for antibiotic treatment of a presumed abdominal surgical wound infection. Abdominal surgical wound infection, acute and present on admission -wound to be kept clean and dry -she will see vancomycin dose for per pharmacy -If wound opens up, recommend consulting wound care, general surgery or her superintendent house at the [facility], likely we should be able to manage here. Hypomagnemesia, unknown if chronic, present on admission -Her magnesium was 0.8 and she is ordered for IV magnesium 2 gram rider -She will need to have monitored daily and will have another drawn at noon today. Diabetes type 2, chronic and present on admission -She takes 30-35 units of Lantus twice daily and will receive a starting dose of 30 units b.i.d. -she also takes prandial NovoLog 15 units after meals, this will be continued -she will also have low-dose correctional scale, adjust as necessary -Carb controlled diet with ACHS glucose checks -oral anti diabetic medications are being held Hypertension, chronic -continue home dose of amlodipine 10 mg p.o. once daily, Enalopril 20 mg once daily, and aspirin 81 mg p.o. daily -patient states she does not have hyperlipidemia and is not on a statin GERD, chronic Continue home dose of esmeprazole 40 mg p.o. daily VTE prophylaxis: Wells risk score: 0 Enoxaparin 40 mg subQ daily plus compression stockings as patient normally wears them Consults: none Patient is admitted under inpatient status with expected length of stay greater than 2 midnights due to severity of presenting symptoms, risk of adverse event, and complexity of treatment plan. FEN: IV saline lock, carb controlled diet, BMP and magnesium in the am. Dispo: Probable discharge to home Code Status: Full code as discussed with patient. She stated she will need to update her DPOA and assign her adult children since her recently. COVID-19 COVID-19 status: Negative Result date/Date tested (Pos, Neg/Pending): 11/30/20 Scores Wells' Criteria for PE Clinical signs and symptoms of DVT: No PE is #1 Dx or equally likely: No Heart rate > 100: No Immobilization at least 3 days or surg in previous 4 weeks: No History of PE or DVT: No Hemoptysis: No Malignancy w/Treatment within 6 months or palliative: No Wells' PE Score total: 0 Quality MIPS - Admit I confirm the patient?s Advance Care Plan is present, Code status is documented, Surrogate decision maker is in patient?s record [If Yes, STOP here]: Yes
[2020-11-30 05:26] LABS: Add Manual Diff / Slide Review NO; Basophils Absolute Auto 0 /uL (0-100); Basophils Percent Auto 0.3 % (0-2); Eosinophils Absolute Auto 400 /uL (0-450); Eosinophils Percent Auto 4.3 % (2-4); Hematocrit 27.2 % (36-46); Hemoglobin 8.8 g/dL (12.0-16.0); Lymphocytes Absolute Auto 2500 /uL (1100-4500); Lymphocytes Percent Auto 28.5 % (25-40); Mean Corpuscular HGB Conc 32.5 % (30-36); Mean Corpuscular Hemoglobin 27.5 PG (26-34); Mean Corpuscular Volume 84.7 fL (80-100); Monocytes Absolute Auto 800 /uL (0-900); Monocytes Percent Auto 8.5 % (3-14); Neutrophils Absolute Auto 5200 /uL (1500-7000); Neutrophils Percent Auto 58.4 % (50-75); Platelet Count 240 X10^3/uL (150-400); Red Blood Cell Count 3.21 X10^6/uL (4.0-5.2); Red Cell Distribution Width 15.4 % (11.6-14.8); White Blood Cell Count 8.9 X10^3/uL (4.5-11.0)
[2020-11-30 05:36] LABS: BUN Creatinine Ratio 20.4 (6-22); Blood Urea Nitrogen 19 mg/dL (7-17); Calcium 10.1 mg/dL (8.4-10.2); Carbon Dioxide 22 mmol/L (22-32); Chloride 108 mmol/L (98-107); Estimated Glomerular Filt Rate 58.6 mL/min (>60); Glucose 82 mg/dL (80-110); HEMOLYSIS < 15 (0-50); Sodium 139 mmol/L (137-145)
[2020-11-30 05:39] LABS: Potassium 5.1 mmol/L (3.4-5.1)
[2020-11-30] MEDS: PANTOPRAZOLE DR 40 MG TABLET PO (06:26)
[2020-11-30 08:00] VITALS: BP 129/63; PULSE 70; RESP 17; TEMP 36.1; O2SAT 94; O2SAT 95
[2020-11-30] MEDS: AZTREONAM 1 GM in DEXTROSE 5 % IN WATER 50 ML 100 ML IV (08:27)
[2020-11-30] MEDS: AMLODIPINE 5 MG TABLET 10 MG PO (08:36)
[2020-11-30] MEDS: NAPROXEN 250 MG TABLET 500 MG PO (08:36)
[2020-11-30] MEDS: ASPIRIN EC 81 MG TABLET PO (08:36)
[2020-11-30] MEDS: ENALAPRIL 20 MG TABLET PO (08:36)
[2020-11-30] MEDS: INSULIN GLARGINE 100 UNIT/ML 3ML PEN 30 UNIT SUBCUT (08:41)
--- NOTE | 2020-11-30 09:11 | CM.DANOTE ---
Patient is a 75 year old female who was admitted on 11/30/20 today for Infection. Pt has [facility] and [facility] for insurance and her PCP is Dr. Juan Solitario. EMR was reviewed. Per MD, pt with recent lap removal of ovarian mass at 9 days ago. Pt with weeping and admitted for surgery wound infection and IV-Abx prior to d/c home on oral medications. Per RN, pt likely to d/c home on oral abx this afternoon via germain Lopez POV. SW met briefly bedside with pt and adult son and explained role and both were fairly brief and abrupt in their answers but confirmed that they are agreeable with plan of d/c home today via son's POV and oral abx and son confirms he is available for assist at d/c. Pt states her spouse a few months ago and she is coping alright. Pt also has additional adult children and plans to update her DPOA pwk now that her spouse is . They do not anticipate any SW needs at d/c. Plan: SW to follow for likely pt d/c home today via germain Lopez POV and assist and any further identified discharge planning needs. 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 No Advance Directives on File No History Provided By Patient,Family Member,Medical Record Has Patient been admitted in last 30 No days? Prior Living Arrangements House Household Members children Type of transporation used prior to Relies on Others admit Independent with ADL's Yes Is patient alert and oriented? Yes Needs Assistance With Managing Medications,Home Chores / Shopping Caregiver for Another No Barriers to Discharge No Discharge Plan Home Transportation Arrangement Germain Lopez is available to transport today around 1200 Referrals Initiated None needed Whiteboard Updated in Patient Room with Yes name and ext. # of Skilled Trades Teacher Review Status In Process Please Provide Date Initial DC 11/30/20 Assessment Was Performed Next Review Type Continued Stay Review
--- NOTE | 2020-11-30 10:10 | PM.CN ---
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 The mass was complex, and she had elevated tumor markers concerning for ovarian cancer though the mass was found to be benign. The patient reports that she was doing well until postoperative day 7, when she began to notice some twinging of pain at the laparoscopy site through which the specimen was removed. She reports that yesterday, she began noticing small amounts of clear yellow drainage, and presented to the emergency room after calling the [facility] after hours call line. The patient reports nausea and mild general malaise that has improved overnight, mild twinging pain that is improving, ongoing scant clear, yellow drainage. She denies maye fevers, chills, chest pain or trouble breathing, any symptoms at her other port sites, change in bowel or bladder habits, abnormal vaginal discharge or bleeding. She is feeling much improved this morning. Her history is significant for hysterectomy in the for benign disease, with 1 ovary left in situ. She also has a history significant for diabetes and obesity. Meds Home Medications and Allergies Home Medications Medication Instructions Recorded Confirmed Type aspirin 81 mg tablet,delayed 81 mg PO DAILY 12/03/18 11/30/20 History release Glucose Test Strips #1 ea 12/26/18 11/30/20 Rx Glucose: Home Monitor #1 ea 12/26/18 11/03/20 Rx meclizine 25 mg tablet 25 mg PO DAILY PRN #30 tab 05/23/20 11/30/20 Rx metformin 500 mg tablet,extended 500 mg PO SEE INSTRUCTIONS #120 tab 06/12/20 11/30/20 Rx release 24 hr hydrochlorothiazide 12.5 mg tablet 12.5 mg PO QAM #90 tab 06/18/20 11/30/20 Rx insulin aspart U-100 100 unit/mL 10 unit SUBCUT QAC #10 ml 06/18/20 11/30/20 Rx subcutaneous solution Syringes: 1cc Insulin Syringes #1 ea 07/17/20 11/03/20 Rx with [place] amlodipine 10 mg tablet 10 mg PO DAILY #90 tab 08/26/20 11/30/20 Rx enalapril maleate 20 mg tablet 20 mg PO BID #180 tab 08/26/20 11/30/20 Rx esomeprazole magnesium 40 mg 40 mg PO DAILY #90 cap 10/20/20 11/30/20 Rx capsule,delayed release insulin detemir U-100 100 unit/mL 30 unit SUBCUT BID #20 ml 10/31/20 11/30/20 Rx subcutaneous solution Allergies Allergy/AdvReac Type Severity Reaction Status Date / Time amoxicillin [AMOXICILLIN] Allergy Severe nausea and Verified 11/29/20 21:04 rash ibuprofen [IBUPROFEN] Allergy Severe swelling Verified 11/29/20 21:04 and hives levofloxacin [LEVOFLOXACIN] Allergy Severe throat Verified 11/29/20 21:04 swelling/vomiting nitrofurantoin Allergy Severe hospitaliza Verified 11/29/20 21:04 [From MACROBID] tion indapamide [From LOZOL] Allergy Mild Verified 11/29/20 21:04 morphine [MORPHINE] AdvReac Severe climb the Verified 11/29/20 21:04 wall/hallucinations atorvastatin [ATORVASTATIN] AdvReac Intermediate myalgias Verified 11/29/20 21:04 simvastatin [From ZOCOR] AdvReac Intermediate myalgias Verified 11/29/20 21:04 Review of Systems Constitutional Constitutional: Reports system reviewed and no additional complaints, except as documented Cardiovascular Cardiovascular: Reports system reviewed and no additional complaints, except as documented Respiratory Respiratory: Reports system reviewed and no additional complaints, except as documented Gastrointestinal Gastrointestinal: Reports as per HPI Genitourinary Genitourinary: Reports as per HPI Musculoskeletal Musculoskeletal: Reports as per HPI Exam Vital Signs (past 8 hours): - 11/30/20 08:00 Temperature 97.0 F L Pulse Rate 70 Respiratory Rate 17 Blood Pressure 129/63 Pulse Oximetry 94 Oxygen Delivery Method Room Air Oxygen Flow Rate 0 Const General: cooperative, comfortable and well groomed GI Palpation: soft Other: Patient has s several well healing lateral port sites. Most central port site is suprapubic, open for about 1 cm of total 3 cm in length. Scant drainage of clear, yellow, non purulent discharge. No odor. At this port site and the fold underneath her pannus, no induration but some surrounding mild erythema and irritation of skin for several cm of this fold consistent with poor underlying condition of the skin in this area, possibly chronic. Dressing of gauze wet with scant amount of similar fluid. Mild tenderness on palpation of irritated skin just adjacent to incision, but no where else. Fading bruising over much of pannus. Objective Labs Result Diagrams: 11/30/20 04:45 11/30/20 04:45 Labs: Laboratory Results - last 24 hr 11/29/20 11/29/20 11/29/20 20:56 20:56 20:56 WBC 9.8 RBC 3.36 L Hgb 9.2 L Hct 28.5 L MCV 84.9 MCH 27.5 MCHC 32.4 RDW 15.7 H Plt Count 292 Neut % (Auto) 61.1 Lymph % (Auto) 26.3 [place] % (Auto) 8.8 Eos % (Auto) 3.4 Baso % (Auto) 0.4 Neut # (Auto) 6000 Lymph # (Auto) 2600 [place] # (Auto) 900 Eos # (Auto) 300 Baso # (Auto) 0 Sodium 137 Potassium 4.8 Chloride 106 Carbon Dioxide 20 L BUN 23 H Creatinine 1.04 Estimated GFR 51.5 L BUN/Creatinine Ratio 22.1 H Glucose 235 H Lactate 1.9 Calcium 10.2 Magnesium Total Bilirubin 0.1 L AST 38 H ALT 26 Alkaline Phosphatase 85 Total Protein 7.3 Albumin 4.1 Globulin 3.2 Albumin/Globulin Ratio 1.3 SARS-CoV-2 (PCR) 11/29/20 11/29/20 11/30/20 20:56 23:50 04:45 WBC 8.9 RBC 3.21 L Hgb 8.8 L Hct 27.2 L MCV 84.7 MCH 27.5 MCHC 32.5 RDW 15.4 H Plt Count 240 Neut % (Auto) 58.4 Lymph % (Auto) 28.5 [place] % (Auto) 8.5 Eos % (Auto) 4.3 H Baso % (Auto) 0.3 Neut # (Auto) 5200 Lymph # (Auto) 2500 [place] # (Auto) 800 Eos # (Auto) 400 Baso # (Auto) 0 Sodium Potassium Chloride Carbon Dioxide BUN Creatinine Estimated GFR BUN/Creatinine Ratio Glucose Lactate Calcium Magnesium 0.8 L* Total Bilirubin AST ALT Alkaline Phosphatase Total Protein Albumin Globulin Albumin/Globulin Ratio SARS-CoV-2 (PCR) Negative 11/30/20 04:45 WBC RBC Hgb Hct MCV MCH MCHC RDW Plt Count Neut % (Auto) Lymph % (Auto) [place] % (Auto) Eos % (Auto) Baso % (Auto) Neut # (Auto) Lymph # (Auto) [place] # (Auto) Eos # (Auto) Baso # (Auto) Sodium 139 Potassium 5.1 Chloride 108 H Carbon Dioxide 22 BUN 19 H Creatinine 0.93 Estimated GFR 58.6 L BUN/Creatinine Ratio 20.4 Glucose 82 D Lactate Calcium 10.1 Magnesium Total Bilirubin AST ALT Alkaline Phosphatase Total Protein Albumin Globulin Albumin/Globulin Ratio SARS-CoV-2 (PCR) Assessment & Plan Assessment and plan (1) Complication, postoperative infection: Qualifiers: Encounter type: initial encounter Postoperative infection type: deep incisional surgical site Qualified Code(s): T81.42XA - Infection following a procedure, deep incisional surgical site, initial encounter Status: Acute Assessment & Plan narrative: On review of the patient's exam, imaging, and admission labs and vital signs, the patient appears to have an early developing cellulitis. No drainable fluid collection was seen though significant diffuse inflammation of the abdominal wall was present, and the patient was afebrile with a normal white count. She appears well this morning, and is stable for outpatient treatment. The drainage is more consistent with a small seroma at the port site at this time, but given the area of inflammation and patient's comorbidities including age, obesity, diabetes, I would recommend management as a nonpurulent cellulitis. Patient is improved significantly with IV antibiotics overnight, and I would recommend a course of p.o. antibiotics for 7-10 days with coverage for MRSA. Given her antibiotic allergies something such as Bactrim or doxycycline should provide broad coverage pending admission culture results. I also discussed with the patient at length the importance of wound care under her pannus, keeping the area clean and dry, and keeping something such as gauze tucked over the incision that can be changed frequently to minimize irritation of the skin. She could also apply something such as bacitracin or Silvadene cream around the open area to protect the skin from drainage. The patient has follow-up scheduled with her surgeon at the [facility] in 4 days, and we discussed precautions for return in the interim. All of her questions were answered, and she was encouraged to call us or primary surgeon with any ongoing questions, concerns, or change in symptoms.
[2020-11-30 11:16] VITALS: PULSE 88
[2020-11-30 12:00] VITALS: BP 133/58; PULSE 66; RESP 18; TEMP 36.3; O2SAT 95
[2020-11-30 13:06] LABS: Magnesium 2.1 mg/dL (1.6-2.3)
--- NOTE | 2020-11-30 13:29 | PC.NURSE ---
REPEAT MAGNESIUM WITHIN NORMAL LIMITS- PREPARED FOR DISCHARGE WITH RX FOR PO ABX FOR HER WOUND INFECTION- VSS AND ACTIVITY DISCUSSED- PT TO FOLLOW UP WITH PCP NECESSARY ADND HER SURGICAL TEAM THIS WEEK
--- NOTE | 2020-11-30 17:55 | PM.DS.1 ---
History of Present Illness History of Present Illness Chief complaint: recent surgery, incision is weeping, nausea Narrative: H and P per Sanna Watson: Frida Britt is a 75 y.o. female with diabetes type 2, essential hypertension, and obesity who is 9 days post op laparascopic removal of an ovarian adnexal mass done at the [facility]. She is obese and has an abdominal pannus and the largest laparoscopic incision is underneath her pannus. She noticed that as she was changing her dressings she notice that the dressings were wet. She then looked at the wound and it appeared to be losing clear yellow fluid. She states that it is the most painful area because the adnexal mass had to be pulled out of that area and they had to excise a longer incision. She felt like initially she had chills and was is not feeling well. She contacted the [facility] who then had her going to the emergency department to have this further assessed. Per the ED emergency room provider she has a small dehiscence of the wound and when they did a CT scan of of her abdomen there did not seem to be a deep abscess at this point. They spoke to the on-call microbiological lab technician at [facility] and they felt that the patient could be managed here with IV vancomycin for the next 24 hours and if the wound appear to open up more to contact him back. CT of the abdomen indicated the following finding ?There is diffuse subcutaneous soft tissue edema and overlying skin thickening involving the anterior lower abdominal wall noted inferior to the fold of her pannus. There is an apparent tract leading from the skin surface the left anterior abdominal wall, likely representing site of laparoscopic access. There is associated thickening of the left anterior abdominal wall musculature at this site with ill-defined heterogeneous focus measuring 2.6 x 6.4 cm in transverse cross-sectional dimension (image 70, series 2). This likely represents combination swollen anterior wall musculature and inflammatory changes. Few locules of gas noted in the superficial margins. No organized fluid collection noted. Inflammatory changes are noted deep to the musculature with mild stranding of the intraperitoneal fat. It is contiguous with underlying loops of small bowel. No definite communication with underlying bowel. No peritoneal cavity fluid collection identified. No evidence abnormal bowel wall thickening underlying area. There is also a 2nd focus of subcutaneous soft tissue stranding along the lateral, lower anterior abdominal wall which has not changed significantly compared to prior studies and likely chronic in etiology. This may represent subcutaneous injection site. Patient is afebrile, blood pressure 167/87, heart rate 78, respiratory rate 18, oxygen saturation 99% on room air, she weighs 83.3 kg and has a BMI of 33.4. CBC is essentially unremarkable, with the exception of a EGFR 51.5 and a glucose of 235 her chemistries are within normal limits however she is extremely low on magnesium 0.8 which was the case during her hospital stay at the [facility]. COVID-19 PCR is negative. Discharge Providers Provider Date of admission: 11/30/20 00:04 Discharge Date: 11/30/20 Primary care physician: Juan Solitario MD Discharge provider: Josh Christianson MD Summary Hospital Course Discharge Diagnosis: 1. Abdominal wound infection, with mild cellulitis 2. Hypomagnesemia 3. Diabetes Type 2 4. Hypertension 5. GERD 6. Anemia, chronic Hospital Course: Ms. Britt was admitted with worsening abdominal pain slightly over a week after a surgery to remove an adnexal mass. She was having slight scant discharge from the wound, this was clear and yellow. She had mild erythema and mild bruising. She had the drainage from the wound sent for culture, and she was initially started on IV vancomycin, and by morning she felt greatly improved. She had no evidence of sepsis. Ob-account supervisor consult was appreciated and recommended covering wound and keeping open and draining. Plan will be to continue antibiotics orally for one week. She will be discharged on doxycycline. She has allergies listed to amoxicililn, levofloxacin, and macrobid. Bactrim was considered but she has multiple medications that can cause kidney dysfunction so this is avoided for now. She is encouraged to call her surgical team on Tuesday for an urgent visit to monitor her symptoms and to determine if her antibiotic course is appropriate. Of note she had severe low magnesium on admission at 0.8, improved to 2.1 after repletion. She has magnesium at home but stopped taking it due to diarrhea. She was encouraged to continue taking it, and follow up with her PCP this week. Exam Vital Signs (past 8 hours): - 11/30/20 11:16 11/30/20 12:00 Temperature 97.4 F L Pulse Rate 88 66 Respiratory Rate 18 Blood Pressure 133/58 L Pulse Oximetry 95 Oxygen Delivery Method Room Air Oxygen Flow Rate 0 Objective Labs Result Diagrams: 11/30/20 04:45 11/30/20 04:45 Labs: Laboratory Results - last 24 hr 11/29/20 11/29/20 11/29/20 20:56 20:56 20:56 WBC 9.8 RBC 3.36 L Hgb 9.2 L Hct 28.5 L MCV 84.9 MCH 27.5 MCHC 32.4 RDW 15.7 H Plt Count 292 Neut % (Auto) 61.1 Lymph % (Auto) 26.3 [place] % (Auto) 8.8 Eos % (Auto) 3.4 Baso % (Auto) 0.4 Neut # (Auto) 6000 Lymph # (Auto) 2600 [place] # (Auto) 900 Eos # (Auto) 300 Baso # (Auto) 0 Sodium 137 Potassium 4.8 Chloride 106 Carbon Dioxide 20 L BUN 23 H Creatinine 1.04 Estimated GFR 51.5 L BUN/Creatinine Ratio 22.1 H Glucose 235 H Lactate 1.9 Calcium 10.2 Magnesium Total Bilirubin 0.1 L AST 38 H ALT 26 Alkaline Phosphatase 85 Total Protein 7.3 Albumin 4.1 Globulin 3.2 Albumin/Globulin Ratio 1.3 SARS-CoV-2 (PCR) 11/29/20 11/29/20 11/30/20 20:56 23:50 04:45 WBC 8.9 RBC 3.21 L Hgb 8.8 L Hct 27.2 L MCV 84.7 MCH 27.5 MCHC 32.5 RDW 15.4 H Plt Count 240 Neut % (Auto) 58.4 Lymph % (Auto) 28.5 [place] % (Auto) 8.5 Eos % (Auto) 4.3 H Baso % (Auto) 0.3 Neut # (Auto) 5200 Lymph # (Auto) 2500 [place] # (Auto) 800 Eos # (Auto) 400 Baso # (Auto) 0 Sodium Potassium Chloride Carbon Dioxide BUN Creatinine Estimated GFR BUN/Creatinine Ratio Glucose Lactate Calcium Magnesium 0.8 L* Total Bilirubin AST ALT Alkaline Phosphatase Total Protein Albumin Globulin Albumin/Globulin Ratio SARS-CoV-2 (PCR) Negative 11/30/20 11/30/20 04:45 12:45 WBC RBC Hgb Hct MCV MCH MCHC RDW Plt Count Neut % (Auto) Lymph % (Auto) [place] % (Auto) Eos % (Auto) Baso % (Auto) Neut # (Auto) Lymph # (Auto) [place] # (Auto) Eos # (Auto) Baso # (Auto) Sodium 139 Potassium 5.1 Chloride 108 H Carbon Dioxide 22 BUN 19 H Creatinine 0.93 Estimated GFR 58.6 L BUN/Creatinine Ratio 20.4 Glucose 82 D Lactate Calcium 10.1 Magnesium 2.1 Total Bilirubin AST ALT Alkaline Phosphatase Total Protein Albumin Globulin Albumin/Globulin Ratio SARS-CoV-2 (PCR) [facility] Medical History BPPV (benign paroxysmal positional vertigo) Diabetes mellitus Essential hypertension GERD (gastroesophageal reflux disease) History of vaginal delivery Hormone replacement therapy Hypomagnesemia Lumbar radiculopathy Surgical History History of bladder surgery History of breast biopsy History of cholecystectomy History of hysterectomy History of laminectomy (~2016) History of lymph node excision Family History Father Cancer Mother CVA (cerebral vascular accident) Social History household members: children Smoking Status: Never smoker alcohol intake: never substance use type: does not use Discharge Plan Discharge Plan Patient Disposition: Home Provider Discharge Comment: Ms. Britt was admitted with a wound infection. She did well with antibiotics. She will be discharged with doxycycline for another week to completely clear up her infection. She should call her surgeon tomorrow morning to get a follow up visit. She had a very low magnesium, and has magnesium supplements at home, and she is encouraged to start back up on those and follow up with her PCP to monitor her magnesium levels. Discharge orders & Medications Prescriptions: New doxycycline hyclate 100 mg capsule 100 mg PO BID Qty: 14 RF: 0 Continued metformin [Glucophage XR] 500 mg tablet extended release 24 hr 500 mg PO SEE INSTRUCTIONS Qty: 120 RF: 5 hydrochlorothiazide 12.5 mg tablet 12.5 mg PO QAM Qty: 90 RF: 3 Novolog U-100 Insulin aspart 100 unit/mL solution 10 unit SUBCUT QAC Qty: 10 RF: 5 esomeprazole magnesium 40 mg capsule,delayed release(DR/EC) 40 mg PO DAILY Qty: 90 RF: 1 Levemir U-100 Insulin 100 unit/mL solution 30 unit SUBCUT BID Qty: 20 RF: 11 aspirin 81 mg tablet,delayed release (DR/EC) 81 mg PO DAILY RF: 0 enalapril maleate 20 mg tablet 20 mg PO BID Qty: 180 RF: 3 amlodipine 10 mg tablet 10 mg PO DAILY Qty: 90 RF: 3 meclizine 25 mg tablet 25 mg PO DAILY PRN (Reason: dizziness) Qty: 30 RF: 11 No Action (DME) Glucose Test Strips 0 .Route .MEDSUPPLY Qty: 1 RF: 11 (DME) Syringes: 1cc Insulin Syringes with [place] 0 .Route .MEDSUPPLY Qty: 1 RF: 3 (DME) Glucose: Home Monitor 0 .Route .MEDSUPPLY Qty: 1 RF: 1 Follow up/Referrals: Juan Solitario MD [Primary Care Provider] - Diet/Activity/Treatments Diet: Diet as Tolerated Discharge Data Primary Care Provider: Juan Solitario
== END 2020-11-30 13:45 | disposition home or self-care (01) ==
LOC: ED 20:42 → AC 11-30 00:31
PROVIDERS: Admitting Provider Nurse Practitioner Family; Emergency Provider Emergency Medicine; PCP Student in an Organized Health Care Education/Training Program; Referring Provider Emergency Medicine; Visit Provider Nurse Practitioner Family
DX: T81.42XA Infection following a procedure, deep incisional surgical site, initial encounter (principal); T81.31XA Disruption of external operation (surgical) wound, not elsewhere classified, initial encounter; E83.42 Hypomagnesemia; E11.9 Type 2 diabetes mellitus without complications; E66.9 Obesity, unspecified; I10 Essential (primary) hypertension; K21.9 Gastro-esophageal reflux disease without esophagitis; Z68.33 Body mass index [BMI] 33.0-33.9, adult; Z79.4 Long term (current) use of insulin; Z20.822 Contact with and (suspected) exposure to COVID-19
CPT/HCPCS: 36415; 74177; 80048; 80053; 82962; 83605; 83735; 85025; 87040; 87070; 87075; 87077; 87185; 87186; 87205; 87635; 96361; 96365; 96366; 96367; 96372; 96375; 99225; 99284; C9803; G0378; J1815; J2405; J3475; Q9967

== ENCOUNTER 2020-12-02 14:38 | Emergency (ER) | payer MEDICARE, OTHER, SELFPAY ==
[2020-12-02 14:54] VITALS: BP 197/78; PULSE 74; RESP 20; TEMP 36.3; O2SAT 97
--- NOTE | 2020-12-02 16:09 | ED.RECABL ---
HPI - Recheck/Abnormal Lab/Rx General Chief Complaint: Recheck/Abnormal Lab/Rx Stated Complaint: wound at surgical site (groin) is weeping Time Seen by Provider: 12/02/20 15:54 Source: patient Mode of arrival: Ambulatory Limitations: no limitations History of Present Illness HPI narrative: Patient is a 75-year-old female recently had abdominal laparoscopic surgery. There is 1 wound on the lower aspect of her abdomen that was recently diagnosed with an infection. She was admitted to the hospital for short period of time received antibiotics. She was discharged home. She is continuing on antibiotics however she states there is still some weeping from the area. There has been no increase in pain. She thinks there is some redness around the area. She contacted her operative provider who asked her to come to the emergency department to have it evaluated. Related Data Home Medications Medication Instructions Recorded Confirmed aspirin 81 mg tablet,delayed 81 mg PO DAILY 12/03/18 11/30/20 release Previous Rx's Medication Instructions Recorded Glucose Test Strips #1 ea 12/26/18 Glucose: Home Monitor #1 ea 12/26/18 meclizine 25 mg tablet 25 mg PO DAILY PRN #30 tab 05/23/20 metformin 500 mg tablet,extended 500 mg PO SEE INSTRUCTIONS #120 tab 06/12/20 release 24 hr hydrochlorothiazide 12.5 mg tablet 12.5 mg PO QAM #90 tab 06/18/20 insulin aspart U-100 100 unit/mL 10 unit SUBCUT QAC #10 ml 06/18/20 subcutaneous solution Syringes: 1cc Insulin Syringes #1 ea 07/17/20 with [place] amlodipine 10 mg tablet 10 mg PO DAILY #90 tab 08/26/20 enalapril maleate 20 mg tablet 20 mg PO BID #180 tab 08/26/20 esomeprazole magnesium 40 mg 40 mg PO DAILY #90 cap 10/20/20 capsule,delayed release insulin detemir U-100 100 unit/mL 30 unit SUBCUT BID #20 ml 10/31/20 subcutaneous solution doxycycline hyclate 100 mg PO BID #14 cap 11/30/20 Allergies Allergy/AdvReac Type Severity Reaction Status Date / Time amoxicillin [AMOXICILLIN] Allergy Severe nausea and Verified 11/29/20 21:04 rash ibuprofen [IBUPROFEN] Allergy Severe swelling Verified 11/29/20 21:04 and hives levofloxacin [LEVOFLOXACIN] Allergy Severe throat Verified 11/29/20 21:04 swelling/vomiting nitrofurantoin Allergy Severe hospitaliza Verified 11/29/20 21:04 [From MACROBID] tion indapamide [From LOZOL] Allergy Mild Verified 11/29/20 21:04 morphine [MORPHINE] AdvReac Severe climb the Verified 11/29/20 21:04 wall/hallucinations atorvastatin [ATORVASTATIN] AdvReac Intermediate myalgias Verified 11/29/20 21:04 simvastatin [From ZOCOR] AdvReac Intermediate myalgias Verified 11/29/20 21:04 Review of Systems Constitutional Constitutional: Denies fever(s) Gastrointestinal Gastrointestinal: Denies abdominal pain Integumentary/Breasts Comments: Surgical wound lower abdomen draining with some surrounding redness Hematologic/Lymphatic On Anticoagulants: No Allergic/Immunologic Allergic/Immunologic: Reports system reviewed and no additional complaints, except as documented Patient History Medical History BPPV (benign paroxysmal positional vertigo) Diabetes mellitus Essential hypertension GERD (gastroesophageal reflux disease) History of vaginal delivery Hormone replacement therapy Hypomagnesemia Lumbar radiculopathy Surgical History History of bladder surgery History of breast biopsy History of cholecystectomy History of hysterectomy History of laminectomy (~2015) History of lymph node excision Family History Father Cancer Mother CVA (cerebral vascular accident) Social History household members: children Smoking Status: Never smoker alcohol intake: never substance use type: does not use Smoking Status: Never smoker alcohol intake frequency: other Substance Use Type: does not use Exam Initial Vital Signs Initial Vital Signs: Vital Signs Temperature 97.4 F L 12/02/20 14:54 Pulse Rate 74 12/02/20 14:54 Respiratory Rate 20 12/02/20 14:54 Blood Pressure 197/78 H 12/02/20 14:54 Pulse Oximetry 97 12/02/20 14:54 Const General: cooperative and comfortable Resp Effort & Inspection: normal respiratory effort Cardio Rate: regular rate GI Inspection: non-distended Palpation: soft, No firm and No tender Skin Other: Patient does have 1 surgical wound located in her lower abdomen. It is right in the crease of her pannus. It is approximately 1 cm open and is draining what appears to be serosanguineous fluid. There is no purulence involved. She is minimally tender around the area. The redness that she describes appears to be more of changes related to a constant moisture the area. I do not think that it is a yeast/fungal infection at this point. Neuro General: patient alert and patient awake Cognition: normal cognition Extrem General: capillary refill normal Psych Appearance: grossly normal and well kempt Course Vital Signs Vital signs: Vital Signs - 8 hr 12/02/20 14:54 Temperature 97.4 F L Pulse Rate 74 Respiratory Rate 20 Blood Pressure 197/78 H Pulse Oximetry 97 MDM - Recheck/Abnormal Lab/Rx MDM Narrative Medical decision making narrative: Patient does have a surgical wound that is draining however it appears to be draining a serosanguineous fluid and not a purulence fluid. I do not feel any fluctuance underneath the area. I do have a low suspicion today that this is an infection or a deep abscess. It is what I would expected to look like given its stage in healing by secondary intention. She is currently on antibiotics. I did discuss with her the redness in the area. We discussed potentially using some barrier cream. I suspect that this is because of the moisture that is consistently there because of the drainage. I do not feel the patient needs admitted to the hospital. She was provided reassurance the given strict return precautions. She expressed understanding and agreement. Discharge Plan Departure Patient Disposition: Home Clinical Impression: Drainage from surgical wound Activity Restrictions/Additional Instructions: The wound is draining however does not appear to be purulence drainage. We call this type of drainage is serosanguineous. The area around the wound also appears well. I recommend that you continue with the antibiotics and keep your follow-up appointment later this week. Return to the emergency department for any new or worsening symptoms. Prescriptions: No Action (DME) Glucose Test Strips 0 .Route .MEDSUPPLY Qty: 1 RF: 11 metformin [Glucophage XR] 500 mg tablet extended release 24 hr 500 mg PO SEE INSTRUCTIONS Qty: 120 RF: 5 hydrochlorothiazide 12.5 mg tablet 12.5 mg PO QAM Qty: 90 RF: 3 Novolog U-100 Insulin aspart 100 unit/mL solution 10 unit SUBCUT QAC Qty: 10 RF: 5 (DME) Syringes: 1cc Insulin Syringes with [place] 0 .Route .MEDSUPPLY Qty: 1 RF: 3 esomeprazole magnesium 40 mg capsule,delayed release(DR/EC) 40 mg PO DAILY Qty: 90 RF: 1 Levemir U-100 Insulin 100 unit/mL solution 30 unit SUBCUT BID Qty: 20 RF: 11 aspirin 81 mg tablet,delayed release (DR/EC) 81 mg PO DAILY RF: 0 (DME) Glucose: Home Monitor 0 .Route .MEDSUPPLY Qty: 1 RF: 1 enalapril maleate 20 mg tablet 20 mg PO BID Qty: 180 RF: 3 amlodipine 10 mg tablet 10 mg PO DAILY Qty: 90 RF: 3 meclizine 25 mg tablet 25 mg PO DAILY PRN (Reason: dizziness) Qty: 30 RF: 11 doxycycline hyclate 100 mg capsule 100 mg PO BID Qty: 14 RF: 0 Referrals: Juan Solitario MD [Primary Care Provider] -
== END 2020-12-02 16:13 | disposition home or self-care (01) ==
PROVIDERS: Emergency Provider Emergency Medicine; PCP Student in an Organized Health Care Education/Training Program
DX: T81.42XA Infection following a procedure, deep incisional surgical site, initial encounter (principal)
CPT/HCPCS: 99281

== ENCOUNTER → 2021-01-01 08:05 | Outpatient (CLI) | payer MEDICARE, OTHER, SELFPAY ==
--- NOTE | 2021-01-01 | DI.US.S_ITS ---
PROCEDURE: US ABDOMEN LIMITED INDICATIONS: DRAINING SURGICAL INCISION TECHNIQUE: Real-time focused scanning was performed of the abdomen, with image documentation. COMPARISON: None. FINDINGS: Scanning over the area of incision and current clinical concern reveals no abnormal fluid collection and expected postoperative scarring. IMPRESSION: Healing postoperative scarring, no seroma or abscess suspected. Dictated by: Rivera Guevara M.D. on 01/01/2021 at 10:00 Approved by: Rivera Guevara M.D. on 01/01/2021 at 10:01
== END ==
PROVIDERS: PCP Student in an Organized Health Care Education/Training Program; Referring Provider Nurse Practitioner Women's Health; Visit Provider Nurse Practitioner Women's Health
DX: T81.89XA Other complications of procedures, not elsewhere classified, initial encounter (principal)
CPT/HCPCS: 76705

== ENCOUNTER → 2021-01-01 13:32 | Outpatient (CLI) | payer MEDICARE, OTHER, SELFPAY | PROVIDERS: PCP Student in an Organized Health Care Education/Training Program; Referring Provider Nurse Practitioner Women's Health; Visit Provider Nurse Practitioner Family | DX: E11.610 Type 2 diabetes mellitus with diabetic neuropathic arthropathy (principal); T81.30XA Disruption of wound, unspecified, initial encounter; L08.9 Local infection of the skin and subcutaneous tissue, unspecified; I10 Essential (primary) hypertension; T81.89XA Other complications of procedures, not elsewhere classified, initial encounter | CPT/HCPCS: 76705; 87070; 87075; 87077; 87186; 87205; 99204; 99213 ==

== ENCOUNTER → 2021-01-08 15:31 | Outpatient (CLI) | payer MEDICARE, OTHER, SELFPAY | PROVIDERS: PCP Student in an Organized Health Care Education/Training Program; Referring Provider Student in an Organized Health Care Education/Training Program; Visit Provider Family Medicine | DX: S31.000A Unspecified open wound of lower back and pelvis without penetration into retroperitoneum, initial encounter (principal); L08.9 Local infection of the skin and subcutaneous tissue, unspecified; R60.0 Localized edema; E11.622 Type 2 diabetes mellitus with other skin ulcer; Z79.2 Long term (current) use of antibiotics | CPT/HCPCS: 99213; 99214 ==

== ENCOUNTER → 2021-01-13 08:10 | Outpatient (CLI) | payer MEDICARE, OTHER, SELFPAY ==
[2021-01-13 10:17] LABS: Hemoglobin A1C% w Est Avg Glu 8.8 % (4.0-6.0)
[2021-01-13 10:52] LABS: Blood Urea Nitrogen 26 mg/dL (7-17); Carbon Dioxide 18 mmol/L (22-32); Chloride 109 mmol/L (98-107); Glucose 174 mg/dL (80-110); HEMOLYSIS < 15 (0-50); Potassium 5.1 mmol/L (3.4-5.1); Sodium 136 mmol/L (137-145)
== END ==
PROVIDERS: PCP Student in an Organized Health Care Education/Training Program; Referring Provider Family Medicine; Visit Provider Family Medicine
DX: E11.610 Type 2 diabetes mellitus with diabetic neuropathic arthropathy (principal); Z79.2 Long term (current) use of antibiotics; N18.30 Chronic kidney disease, stage 3 unspecified
CPT/HCPCS: 36415; 80048; 83036

== ENCOUNTER → 2021-01-15 10:45 | Outpatient (CLI) | payer MEDICARE, OTHER, SELFPAY | PROVIDERS: PCP Student in an Organized Health Care Education/Training Program; Referring Provider Student in an Organized Health Care Education/Training Program; Visit Provider Family Medicine | DX: S31.000A Unspecified open wound of lower back and pelvis without penetration into retroperitoneum, initial encounter (principal); T81.30XA Disruption of wound, unspecified, initial encounter; L08.9 Local infection of the skin and subcutaneous tissue, unspecified; Z79.2 Long term (current) use of antibiotics; E11.622 Type 2 diabetes mellitus with other skin ulcer | CPT/HCPCS: 99213 ==

== ENCOUNTER → 2021-01-22 14:52 | Outpatient (CLI) | payer MEDICARE, OTHER, SELFPAY | PROVIDERS: PCP Student in an Organized Health Care Education/Training Program; Referring Provider Student in an Organized Health Care Education/Training Program; Visit Provider Family Medicine | DX: S31.000A Unspecified open wound of lower back and pelvis without penetration into retroperitoneum, initial encounter (principal); T81.30XA Disruption of wound, unspecified, initial encounter; L08.9 Local infection of the skin and subcutaneous tissue, unspecified; Z79.2 Long term (current) use of antibiotics; E11.622 Type 2 diabetes mellitus with other skin ulcer; B95.7 Other staphylococcus as the cause of diseases classified elsewhere; B95.61 Methicillin susceptible Staphylococcus aureus infection as the cause of diseases classified elsewhere | CPT/HCPCS: 87070; 87075; 87077; 87147; 87186; 87205; 99213 ==

== ENCOUNTER → 2021-01-26 12:19 | Outpatient (CLI) | payer MEDICARE, OTHER, SELFPAY ==
[2021-01-26 13:18] LABS: BUN Creatinine Ratio 18.5 (6-22); Blood Urea Nitrogen 30 mg/dL (7-17); Calcium 10.4 mg/dL (8.4-10.2); Carbon Dioxide 14 mmol/L (22-32); Chloride 110 mmol/L (98-107); Estimated Glomerular Filt Rate 30.9 mL/min (>60); Glucose 240 mg/dL (80-110); HEMOLYSIS < 15 (0-50); Sodium 134 mmol/L (137-145)
[2021-01-26 13:20] LABS: Potassium 5.9 mmol/L (3.4-5.1)
== END ==
PROVIDERS: PCP Student in an Organized Health Care Education/Training Program; Referring Provider Family Medicine; Visit Provider Family Medicine
DX: L08.9 Local infection of the skin and subcutaneous tissue, unspecified (principal); Z79.2 Long term (current) use of antibiotics
CPT/HCPCS: 36415; 80048

== ENCOUNTER → 2021-01-28 10:17 | Outpatient (CLI) | payer MEDICARE, OTHER, SELFPAY | PROVIDERS: PCP Student in an Organized Health Care Education/Training Program; Referring Provider Student in an Organized Health Care Education/Training Program; Visit Provider Family Medicine | DX: S31.000A Unspecified open wound of lower back and pelvis without penetration into retroperitoneum, initial encounter (principal); L08.9 Local infection of the skin and subcutaneous tissue, unspecified; Z79.2 Long term (current) use of antibiotics; B95.7 Other staphylococcus as the cause of diseases classified elsewhere; B95.61 Methicillin susceptible Staphylococcus aureus infection as the cause of diseases classified elsewhere; E87.5 Hyperkalemia; E87.2 Acidosis; N18.32 Chronic kidney disease, stage 3b; E11.628 Type 2 diabetes mellitus with other skin complications; I12.9 Hypertensive chronic kidney disease with stage 1 through stage 4 chronic kidney disease, or unspecified chronic kidney disease | CPT/HCPCS: 99213; 99215 ==

== ENCOUNTER → 2021-01-29 12:15 | Outpatient (CLI) | payer MEDICARE, OTHER, SELFPAY ==
[2021-01-29 12:28] LABS: Bacteria Urine None Seen; RBC Urine None Seen (0-5/HPF); WBC Urine None Seen (0-5/HPF)
[2021-01-29 13:01] LABS: Appearance Urine UA CLEAR; Bilirubin Urine UA NEGATIVE (NEGATIVE); Color Urine UA YELLOW; Glucose Urine UA 1+ g/dL (Negative); Ketones Urine UA NEGATIVE (NEGATIVE); Leukocyte Esterase Urine UA NEGATIVE (NEGATIVE); Nitrite Urine UA NEGATIVE (Negative); Occult Blood Urine UA NEGATIVE (Negative); Protein Urine UA NEGATIVE (Negative); Specific Gravity Urine UA 1.015 (1.000-1.035); Urobilinogen Urine UA 0.2 E.U./dL (0.2)
[2021-01-29 13:03] LABS: Add Manual Diff / Slide Review NO; Basophils Absolute Auto 0 /uL (0-100); Basophils Percent Auto 0.5 % (0-2); Eosinophils Absolute Auto 200 /uL (0-450); Eosinophils Percent Auto 3.4 % (2-4); Hematocrit 28.9 % (36-46); Hemoglobin 9.4 g/dL (12.0-16.0); Lymphocytes Absolute Auto 2100 /uL (1100-4500); Lymphocytes Percent Auto 39.5 % (25-40); Mean Corpuscular HGB Conc 32.7 % (30-36); Mean Corpuscular Hemoglobin 28.4 PG (26-34); Mean Corpuscular Volume 86.8 fL (80-100); Monocytes Absolute Auto 300 /uL (0-900); Monocytes Percent Auto 6.4 % (3-14); Neutrophils Absolute Auto 2700 /uL (1500-7000); Neutrophils Percent Auto 50.2 % (50-75); Platelet Count 197 X10^3/uL (150-400); Red Blood Cell Count 3.33 X10^6/uL (4.0-5.2); Red Cell Distribution Width 17.2 % (11.6-14.8); White Blood Cell Count 5.3 X10^3/uL (4.5-11.0)
[2021-01-29 13:04] LABS: HCO3 VBG 18 mmol/L (23-28); Oxygen Saturation VBG 61 % (70-75); PCO2 VBG 43.4 mmHg (45-50); PO2 VBG 38 mmHg (35-45); Total CO2 VBG 19 mmol/L (24-29); pH VBG 7.22 (7.33-7.43)
[2021-01-29 13:13] LABS: Culture Indicated Urine Cult Not Indicated; Urine Comments Microscopic Normal
[2021-01-29 13:19] LABS: Lactate (Lactic Acid) 1.7 mmol/L (0.7-2.1)
[2021-01-29 13:21] LABS: Alanine Aminotransferase 28 IU/L (<35); Albumin 4.1 g/dL (3.5-5.0); Albumin Globulin Ratio 1.4 (1.0-2.8); Alkaline Phosphatase 55 U/L (38-126); Aspartate Aminotransferase 39 IU/L (14-36); BUN Creatinine Ratio 22.1 (6-22); Bilirubin Total 0.1 mg/dL (0.2-1.3); Blood Urea Nitrogen 30 mg/dL (7-17); C-Reactive Protein Quant < 0.5 mg/dL (<1.0); Calcium 10.2 mg/dL (8.4-10.2); Carbon Dioxide 17 mmol/L (22-32); Chloride 111 mmol/L (98-107); Estimated Glomerular Filt Rate 37.8 mL/min (>60); Globulin 2.9 g/dL (1.7-4.1); Glucose 271 mg/dL (80-110); HEMOLYSIS < 15 (0-50); Phosphorous 3.4 mg/dL (2.8-4.1); Sodium 134 mmol/L (137-145); Uric Acid 6.7 mg/dL (2.5-6.2)
[2021-01-29 13:26] LABS: Erythrocyte Sedimentation Rate 16 MM/HR (0-20)
[2021-01-29 13:44] LABS: Potassium 6.4 mmol/L (3.4-5.1)
[2021-01-29 14:34] LABS: Potassium Urine Random 39.9 mmol/L; Sodium Urine Random 66 mmol/L (30-90)
[2021-01-30 15:45] LABS: Osmolality Urine 517 mOsmol/kg (.)
== END ==
PROVIDERS: PCP Student in an Organized Health Care Education/Training Program; Referring Provider Family Medicine; Visit Provider Family Medicine
DX: E87.4 Mixed disorder of acid-base balance (principal); E87.5 Hyperkalemia; N18.30 Chronic kidney disease, stage 3 unspecified; E11.628 Type 2 diabetes mellitus with other skin complications
CPT/HCPCS: 36415; 80053; 81001; 82805; 83605; 83935; 84100; 84133; 84300; 84550; 85025; 85651; 86140

== ENCOUNTER 2021-01-30 12:20 | Emergency (ER) | payer MEDICARE, OTHER, SELFPAY ==
[2021-01-30 12:25] VITALS: BP 175/75; PULSE 90; RESP 15; TEMP 36.3; O2SAT 100; BMI 32.6
[2021-01-30 12:40] VITALS: PULSE 83
[2021-01-30 12:42] VITALS: BP 157/72; PULSE 85; RESP 28; O2SAT 99
[2021-01-30 13:00] VITALS: BP 145/65; PULSE 69; RESP 18; O2SAT 100
[2021-01-30 13:04] LABS: Add Manual Diff / Slide Review NO; Basophils Absolute Auto 0 /uL (0-100); Basophils Percent Auto 0.3 % (0-2); Eosinophils Absolute Auto 200 /uL (0-450); Eosinophils Percent Auto 3.6 % (2-4); Hematocrit 30.5 % (36-46); Lymphocytes Absolute Auto 2000 /uL (1100-4500); Lymphocytes Percent Auto 39.7 % (25-40); Mean Corpuscular HGB Conc 32.7 % (30-36); Mean Corpuscular Hemoglobin 28.5 PG (26-34); Mean Corpuscular Volume 87.1 fL (80-100); Monocytes Absolute Auto 300 /uL (0-900); Monocytes Percent Auto 5.6 % (3-14); Neutrophils Absolute Auto 2600 /uL (1500-7000); Neutrophils Percent Auto 50.8 % (50-75); Platelet Count 201 X10^3/uL (150-400); Red Blood Cell Count 3.51 X10^6/uL (4.0-5.2); Red Cell Distribution Width 17.3 % (11.6-14.8); White Blood Cell Count 5.1 X10^3/uL (4.5-11.0)
--- NOTE | 2021-01-30 13:12 | ED_ITS ---
HPI - Recheck/Abnormal Lab/Rx General Chief Complaint: Recheck/Abnormal Lab/Rx Stated Complaint: Abnormal Labs, Sent From Dr Myers Time Seen by Provider: 01/30/21 12:35 Source: patient Mode of arrival: Ambulatory Limitations: no limitations History of Present Illness HPI narrative: 75F nonsmoker with extensive recent medical history presents at the request of her wound care doctor after noting an elevated potassium on routine labs. She denies any symptoms such as dizziness, weakness or lightheadedness. She has no shortness of breath, fatigue or chest pain. She denies any palpitations or other. She has been seeing wound care for a poorly healing left groin wound after the evaluation of a lymph node for possible cancer. She has had no fever or chills. She denies any dietary or medication changes. Related Data Home Medications Medication Instructions Recorded Confirmed aspirin 81 mg tablet,delayed 81 mg PO DAILY 12/03/18 01/15/21 release Previous Rx's Medication Instructions Recorded Glucose: Home Monitor #1 ea 12/26/18 meclizine 25 mg tablet 25 mg PO DAILY PRN #30 tab 05/23/20 hydrochlorothiazide 12.5 mg tablet 12.5 mg PO QAM #90 tab 06/18/20 Syringes: 1cc Insulin Syringes #1 ea 07/17/20 with [place] amlodipine 10 mg tablet 10 mg PO DAILY #90 tab 08/26/20 enalapril maleate 20 mg tablet 20 mg PO BID #180 tab 08/26/20 esomeprazole magnesium 40 mg 40 mg PO DAILY #90 cap 10/20/20 capsule,delayed release insulin detemir U-100 100 unit/mL 30 unit SUBCUT BID #20 ml 10/31/20 subcutaneous solution (Levemir U-100 Insulin) doxycycline hyclate 100 mg capsule 100 mg PO BID #14 cap 11/30/20 metformin 500 mg tablet,extended 500 mg PO SEE INSTRUCTIONS #120 tab 12/29/20 release 24 hr (Glucophage XR) insulin aspart U-100 100 unit/mL 15 unit SUBCUT QAC #10 ml 01/15/21 subcutaneous solution (Novolog U-100 Insulin aspart) Glucose Test Strips #1 ea 01/20/21 Allergies Allergy/AdvReac Type Severity Reaction Status Date / Time amoxicillin [AMOXICILLIN] Allergy Severe nausea and Verified 01/30/21 12:25 rash ibuprofen [IBUPROFEN] Allergy Severe swelling Verified 01/30/21 12:25 and hives levofloxacin [LEVOFLOXACIN] Allergy Severe throat Verified 01/30/21 12:25 swelling/vomiting nitrofurantoin Allergy Severe hospitaliza Verified 01/30/21 12:25 [From MACROBID] tion indapamide [From LOZOL] Allergy Mild Verified 01/30/21 12:25 morphine [MORPHINE] AdvReac Severe climb the Verified 01/30/21 12:25 wall/hallucinations atorvastatin [ATORVASTATIN] AdvReac Intermediate myalgias Verified 01/30/21 12:25 simvastatin [From ZOCOR] AdvReac Intermediate myalgias Verified 01/30/21 12:25 Review of Systems Review of Systems Narrative: GENERAL: Denies chills, fatigue, malaise, fever, sweats. HEENT: Denies sinus pain, ear pain, sore throat, difficulty swallowing, dizziness. RESPIRATORY: Denies dyspnea, cough, wheezing, hemoptysis, sputum. CARDIOVASCULAR: Denies chest pain, palpitations, orthopnea, edema, GASTROINTESTINAL: Denies nausea, vomiting, abdominal pain, diarrhea, constipation, melena. : Denies dysuria, frequency, incontinence, hematuria, urinary retention. MUSCULOSKELETAL: denies weakness, joint pain, or bony pain SKIN: Denies rash, skin lesions, or other NEUROLOGIC: Denies weakness, headache, numbness, change in speech, confusion, seizures, incoordination. PSYCHIATRIC: No concerning psychosocial issues. 12 point review of systems is negative except for those stated above Patient History Medical History BPPV (benign paroxysmal positional vertigo) Diabetes mellitus Essential hypertension GERD (gastroesophageal reflux disease) History of vaginal delivery Hormone replacement therapy Hypomagnesemia Lumbar radiculopathy Surgical History History of bladder surgery History of breast biopsy History of cholecystectomy History of hysterectomy History of laminectomy (~2016) History of lymph node excision Family History Father Cancer Mother CVA (cerebral vascular accident) Social History household members: children Smoking Status: Never smoker alcohol intake: never substance use type: does not use Smoking Status: Never smoker alcohol intake frequency: holidays/special occasions only Substance Use Type: does not use Exam Narrative Exam Narrative: GEN: AOx3 and in mild distress EYES: Pupils are equal, round, and reactive to light and accommodation. Extraoccular muscles are intact bilaterally. There is no subconjunctival hemorrhage or exudate. CHEST: Lungs are clear to auscultation bilaterally and free of wheezes, rales, or rhonchi. Heart rate is regular rhythm, there are no murmurs, clicks, rubs, or gallops. There is no chest wall tenderness. ABD: Abdomen is soft and nontender. There is no guarding or rebound. Bowel sounds are normal in all 4 quadrants. There is no mass or organomegaly. EXT: Full painless ROM of all extremities with no loss of sensation or strength. SKIN: Warm, pink, and dry. No erythema or rash Initial Vital Signs Initial Vital Signs: Vital Signs Temperature 97.3 F L 01/30/21 12:25 Pulse Rate 90 01/30/21 12:25 Respiratory Rate 15 01/30/21 12:25 Blood Pressure 175/75 H 01/30/21 12:25 Pulse Oximetry 100 01/30/21 12:25 Course Orders Ordered: ED Orders 01/30/21 12:34 EKG-12 Lead Routine 01/30/21 12:45 Complete Blood Count AUTO DIFF Stat Comprehensive Metabolic Panel Stat Lipase Stat Troponin & CK Cardiac Panel Stat Discontinued Medications Albuterol (Albuterol 2.5 Mg/3 Ml Neb (Adult)) 10 mg INH NOW ONE Stop: 01/30/21 13:32 Furosemide (Furosemide 40 Mg/4 Ml Vial) 40 mg IV NOW ONE Stop: 01/30/21 13:32 Vital Signs Vital signs: Vital Signs - 8 hr 01/30/21 12:25 01/30/21 12:40 01/30/21 12:42 Temperature 97.3 F L Pulse Rate 90 83 85 Respiratory Rate 15 28 H Blood Pressure 175/75 H 157/72 H Pulse Oximetry 100 99 01/30/21 13:00 01/30/21 13:30 Temperature Pulse Rate 69 62 Respiratory Rate 18 19 Blood Pressure 145/65 H 164/72 H Pulse Oximetry 100 99 MDM - Recheck/Abnormal Lab/Rx Lab Data Result diagrams: 01/30/21 12:45 01/30/21 12:45 Labs: Lab Results 01/30/21 01/30/21 Range/Units 12:45 12:45 WBC 5.1 (4.5-11.0) X10^3/uL RBC 3.51 L (4.0-5.2) X10^6/uL Hgb 10.0 L (12.0-16.0) g/dL Hct 30.5 L (36-46) % MCV 87.1 (80-100) fL MCH 28.5 (26-34) PG MCHC 32.7 (30-36) % RDW 17.3 H (11.6-14.8) % Plt Count 201 (150-400) X10^3/uL Neut % (Auto) 50.8 (50-75) % Lymph % (Auto) 39.7 (25-40) % Garland % (Auto) 5.6 (3-14) % Eos % (Auto) 3.6 (2-4) % Baso % (Auto) 0.3 (0-2) % Neut # (Auto) 2600 (7955-8500) /uL Lymph # (Auto) 2000 (1419-4306) /uL Garland # (Auto) 300 (0-900) /uL Eos # (Auto) 200 (0-450) /uL Baso # (Auto) 0 (0-100) /uL Sodium 135 L (137-145) mmol/L Potassium 5.2 H D (3.4-5.1) mmol/L Chloride 110 H (98-107) mmol/L Carbon Dioxide 15 L (22-32) mmol/L BUN 26 H (7-17) mg/dL Creatinine 1.20 H (0.52-1.04) mg/dL Estimated GFR 43.7 L (>60) mL/min BUN/Creatinine Ratio 21.7 (6-22) Glucose 263 H (80-110) mg/dL Calcium 10.5 H (8.4-10.2) mg/dL Total Bilirubin 0.4 (0.2-1.3) mg/dL AST 37 H (14-36) IU/L ALT 30 (<35) IU/L Alkaline Phosphatase 69 (38-126) U/L Total Creatine Kinase 183 H (30-135) U/L CK-MB (CK-2) 2.67 H (<2.37) ng/mL CK-MB (CK-2) Rel Index 1.5 (1.5-5.0) % Troponin I < 0.012 (0.01-0.034) ng/mL Total Protein 7.8 (6.3-8.2) g/dL Albumin 4.6 (3.5-5.0) g/dL Globulin 3.2 (1.7-4.1) g/dL Albumin/Globulin Ratio 1.4 (1.0-2.8) Lipase 523 H (23-300) U/L ECG Data Interpretation: EKG is normal sinus rhythm rate [90 ] and free of any signs of ischemia or ectopy. No ST segmental elevation or depression. No T wave inversions. RBBB (noted on priors) MDM Narrative Medical decision making narrative: extensive discussion regarding need for treatment. We discussed her lack of symptoms and EKG findings. K had returned to high normal. Had initially recommended lasix/albuterol, but after discussion with patient she would prefer to do nothing given normal labs and lack of symptoms. Patient does have hydrochlorothiazide at home and I encouraged her to take an extra dose each of the next 3 days. She has been given return precauti ons and questions have been answered to her apparent satisfaction Discharge Plan Departure Patient Disposition: Home Clinical Impression: Acute hyperkalemia Instructions: DI for Hyperkalemia Activity Restrictions/Additional Instructions: *You have been diagnosed with [hypokalemia, resolved] *What to do: * please take an extra hydrochlorothiazide each day for the next 3 days, and otherwise please continue to take your regular medications as directed. [ ] New medication prescriptions sent to your pharmacy: [ ] [ ] New medication written as a paper prescription [x] No new medications given *Please follow up with your primary care provider in 2-3 days, call for an appointment. Let them know you were seen in the Emergency Department and that we ask that you be seen in follow up. We will electronically transmit a record of today's note if your PCP is in our system *If you do not have a primary care provider please contact the [facility] Resource line at [phone]. They will ask some questions about your medical history and help get you set up with a doctor in the community. *Return to Emergency Department if you should have any new, worsening or concerning symptoms, such as [fever greater than 101 F, shaking chills, worsening pain, persistent vomiting or other bothersome symptoms] Prescriptions: No Action hydrochlorothiazide 12.5 mg tablet 12.5 mg PO QAM Qty: 90 RF: 3 (DME) Syringes: 1cc Insulin Syringes with [place] 0 .Route .MEDSUPPLY Qty: 1 RF: 3 esomeprazole magnesium 40 mg capsule,delayed release(DR/EC) 40 mg PO DAILY Qty: 90 RF: 1 Levemir U-100 Insulin 100 unit/mL solution 30 unit SUBCUT BID Qty: 20 RF: 11 metformin [Glucophage XR] 500 mg tablet extended release 24 hr 500 mg PO SEE INSTRUCTIONS Qty: 120 RF: 5 (DME) Glucose Test Strips 0 .Route .MEDSUPPLY Qty: 1 RF: 11 aspirin 81 mg tablet,delayed release (DR/EC) 81 mg PO DAILY RF: 0 (DME) Glucose: Home Monitor 0 .Route .MEDSUPPLY Qty: 1 RF: 1 enalapril maleate 20 mg tablet 20 mg PO BID Qty: 180 RF: 3 amlodipine 10 mg tablet 10 mg PO DAILY Qty: 90 RF: 3 meclizine 25 mg tablet 25 mg PO DAILY PRN (Reason: dizziness) Qty: 30 RF: 11 Novolog U-100 Insulin aspart 100 unit/mL solution 15 unit SUBCUT QAC Qty: 10 RF: 5 doxycycline hyclate 100 mg capsule 100 mg PO BID Qty: 14 RF: 0 Referrals: Juan Solitario MD [Primary Care Provider] -
[2021-01-30 13:18] LABS: Alanine Aminotransferase 30 IU/L (<35); Albumin 4.6 g/dL (3.5-5.0); Albumin Globulin Ratio 1.4 (1.0-2.8); Alkaline Phosphatase 69 U/L (38-126); Aspartate Aminotransferase 37 IU/L (14-36); BUN Creatinine Ratio 21.7 (6-22); Bilirubin Total 0.4 mg/dL (0.2-1.3); Blood Urea Nitrogen 26 mg/dL (7-17); Calcium 10.5 mg/dL (8.4-10.2); Carbon Dioxide 15 mmol/L (22-32); Chloride 110 mmol/L (98-107); Creatine Kinase 183 U/L (30-135); Estimated Glomerular Filt Rate 43.7 mL/min (>60); Globulin 3.2 g/dL (1.7-4.1); Glucose 263 mg/dL (80-110); HEMOLYSIS < 15 (0-50); Lipase 523 U/L (23-300); Potassium 5.2 mmol/L (3.4-5.1); Sodium 135 mmol/L (137-145); Total Protein 7.8 g/dL (6.3-8.2)
[2021-01-30 13:29] LABS: Troponin I < 0.012 ng/mL (0.01-0.034)
[2021-01-30 13:30] VITALS: BP 164/72; PULSE 62; RESP 19; O2SAT 99
[2021-01-30 13:33] LABS: CKMB % Relative Index 1.5 % (1.5-5.0); Creatine Kinase MB 2.67 ng/mL (<2.37)
== END 2021-01-30 13:50 | disposition home or self-care (01) ==
PROVIDERS: Emergency Medicine; Emergency Provider Emergency Medicine; PCP Student in an Organized Health Care Education/Training Program
DX: E87.5 Hyperkalemia (principal)
CPT/HCPCS: 36415; 80053; 82550; 82553; 83690; 84484; 85025; 93005; 93010; 99283; 99284

== ENCOUNTER → 2021-02-03 10:40 | Outpatient (CLI) | payer MEDICARE, OTHER, SELFPAY | PROVIDERS: PCP Student in an Organized Health Care Education/Training Program; Referring Provider Student in an Organized Health Care Education/Training Program; Visit Provider Family Medicine | DX: S31.000A Unspecified open wound of lower back and pelvis without penetration into retroperitoneum, initial encounter (principal); T81.30XA Disruption of wound, unspecified, initial encounter; L08.9 Local infection of the skin and subcutaneous tissue, unspecified; Z79.2 Long term (current) use of antibiotics; E11.622 Type 2 diabetes mellitus with other skin ulcer; E87.5 Hyperkalemia; N18.32 Chronic kidney disease, stage 3b | CPT/HCPCS: 15271; 99213; Q4110 ==

== ENCOUNTER → 2021-02-04 15:41 | Outpatient (CLI) | payer MEDICARE, OTHER, SELFPAY ==
[2021-02-04 17:35] LABS: BUN Creatinine Ratio 18.7 (6-22); Blood Urea Nitrogen 23 mg/dL (7-17); Calcium 10.3 mg/dL (8.4-10.2); Carbon Dioxide 18 mmol/L (22-32); Chloride 110 mmol/L (98-107); Estimated Glomerular Filt Rate 42.5 mL/min (>60); Glucose 248 mg/dL (80-110); HEMOLYSIS < 15 (0-50); Sodium 136 mmol/L (137-145)
== END ==
PROVIDERS: PCP Student in an Organized Health Care Education/Training Program; Referring Provider Family Medicine; Visit Provider Family Medicine
DX: E87.5 Hyperkalemia (principal)
CPT/HCPCS: 36415; 80048

== ENCOUNTER → 2021-02-18 11:22 | Outpatient (CLI) | payer MEDICARE, OTHER, SELFPAY | PROVIDERS: PCP Student in an Organized Health Care Education/Training Program; Referring Provider Student in an Organized Health Care Education/Training Program; Visit Provider Family Medicine | DX: S31.000D Unspecified open wound of lower back and pelvis without penetration into retroperitoneum, subsequent encounter (principal) | CPT/HCPCS: 99212; 99213 ==

== ENCOUNTER → 2021-05-02 11:57 | Outpatient (CLI) | payer MEDICARE, OTHER, SELFPAY ==
[2021-05-02 12:54] LABS: BUN Creatinine Ratio 15.8 (6-22); Blood Urea Nitrogen 18 mg/dL (7-17); Estimated Glomerular Filt Rate 46.3 mL/min (>60)
[2021-05-02 12:56] LABS: Hemoglobin A1C% w Est Avg Glu 8.2 % (4.0-6.0)
== END ==
PROVIDERS: PCP Student in an Organized Health Care Education/Training Program; Referring Provider Student in an Organized Health Care Education/Training Program; Visit Provider Student in an Organized Health Care Education/Training Program
DX: E11.610 Type 2 diabetes mellitus with diabetic neuropathic arthropathy (principal)
CPT/HCPCS: 36415; 82565; 83036; 84520

== ENCOUNTER → 2021-09-25 09:36 | Outpatient (CLI) | payer MEDICARE, OTHER, SELFPAY ==
[2021-09-25 11:46] LABS: BUN Creatinine Ratio 20.6 (6-22); Blood Urea Nitrogen 22 mg/dL (7-17); Estimated Glomerular Filt Rate 49.9 mL/min (>60)
[2021-09-26 03:43] LABS: Fructosamine 287 umol/L (0-285)
== END ==
PROVIDERS: PCP Student in an Organized Health Care Education/Training Program; Referring Provider Student in an Organized Health Care Education/Training Program; Visit Provider Student in an Organized Health Care Education/Training Program
DX: E11.610 Type 2 diabetes mellitus with diabetic neuropathic arthropathy (principal); N18.30 Chronic kidney disease, stage 3 unspecified; Z79.4 Long term (current) use of insulin
CPT/HCPCS: 36415; 82565; 82985; 84520

== ENCOUNTER → 2022-03-17 12:03 | Outpatient (CLI) | payer MEDICARE, OTHER, SELFPAY ==
[2022-03-17 13:30] LABS: Hemoglobin A1C% w Est Avg Glu 7.1 % (4.0-6.0)
[2022-03-17 13:53] LABS: BUN Creatinine Ratio 22.5 (6-22); Blood Urea Nitrogen 25 mg/dL (7-17); Estimated Glomerular Filt Rate 51 mL/min (>60)
== END ==
PROVIDERS: PCP Student in an Organized Health Care Education/Training Program; Referring Provider Student in an Organized Health Care Education/Training Program; Visit Provider Student in an Organized Health Care Education/Training Program
DX: E11.610 Type 2 diabetes mellitus with diabetic neuropathic arthropathy (principal); Z79.4 Long term (current) use of insulin; N18.30 Chronic kidney disease, stage 3 unspecified
CPT/HCPCS: 36415; 82565; 83036; 84520

== ENCOUNTER → 2022-09-23 12:01 | Outpatient (CLI) | payer MEDICARE, OTHER, SELFPAY ==
[2022-09-23 12:49] LABS: Hemoglobin A1C% w Est Avg Glu 7.1 % (4.0-6.0)
[2022-09-23 12:52] LABS: BUN Creatinine Ratio 23.1 (6-22); Blood Urea Nitrogen 24 mg/dL (7-17); Cholesterol 166 mg/dL (140-199); Estimated Glomerular Filt Rate 55 mL/min (>60); HDL Cholesterol 61 mg/dL (40-60); LDL Cholesterol Calculated 83 mg/dL (<100); Triglycerides 109 mg/dL (35-150)
[2022-09-23 14:33] LABS: Creatinine Urine Random 104.6 mg/dL
[2022-09-23 14:37] LABS: Microalbumi Creatinin Ratio Ur 162.5 ug/mg CR (<30)
== END ==
PROVIDERS: PCP Student in an Organized Health Care Education/Training Program; Referring Provider Student in an Organized Health Care Education/Training Program; Visit Provider Student in an Organized Health Care Education/Training Program
DX: E11.69 Type 2 diabetes mellitus with other specified complication (principal); E11.610 Type 2 diabetes mellitus with diabetic neuropathic arthropathy; E78.2 Mixed hyperlipidemia; N18.31 Chronic kidney disease, stage 3a; Z79.4 Long term (current) use of insulin
CPT/HCPCS: 36415; 80061; 82043; 82565; 82570; 83036; 84520

== ENCOUNTER → 2023-01-22 09:22 | Outpatient (CLI) | payer MEDICARE, OTHER, SELFPAY ==
--- NOTE | 2023-01-22 09:51 | DI.RAD.S_ITS ---
PROCEDURE: XR CERVICAL SPINE 2V OR 3V INDICATIONS: eval for DDD and/or spurs with chronic cervicalgia,RUE rose TECHNIQUE: 3 view(s) of the cervical spine were acquired. COMPARISON: [facility], CR, XR CERVICAL SPINE 2V OR 3V, 06/19/2019, 13:17. FINDINGS: Bones: No fractures or dislocations to the T4 level. The lateral masses of C1 appear intact on the odontoid view. No suspicious bony lesions. Persistent straightening of normal cervical lordosis with minimal retrolisthesis of C5 on C6 as before. Severe multilevel cervical spondylosis most pronounced at C5-6 where there is moderate disc space loss, degenerative endplate changes, and prominent endplate osteophyte formation. Bilateral facet arthropathy. Soft tissues: No prevertebral soft tissue swelling. IMPRESSION: Stable radiographic evaluation of the cervical spine. No acute osseous abnormality seen. Persistent straightening of normal cervical lordosis with stable minimal retrolisthesis of C5 on C6 likely related to severe spondylitic changes at that level. Dictated by: Luke Thrasher M.D. on 01/22/2023 at 16:17 Approved by: Luke Thrasher M.D. on 01/22/2023 at 16:19
[2023-01-22 10:04] LABS: Add Manual Diff / Slide Review NO; Basophils Absolute Auto 0 /uL (0-100); Basophils Percent Auto 0.7 % (0-2); Eosinophils Absolute Auto 300 /uL (0-450); Eosinophils Percent Auto 4.6 % (2-4); Hematocrit 32.4 % (36-46); Hemoglobin 11.3 g/dL (12.0-16.0); Lymphocytes Absolute Auto 2000 /uL (1100-4500); Lymphocytes Percent Auto 34.5 % (25-40); Mean Corpuscular Volume 88.6 fL (80-100); Monocytes Absolute Auto 400 /uL (0-900); Monocytes Percent Auto 6.2 % (3-14); Neutrophils Absolute Auto 3200 /uL (1500-7000); Platelet Count 205 X10^3/uL (150-400); Red Blood Cell Count 3.65 X10^6/uL (4.0-5.2); Red Cell Distribution Width 13.9 % (11.6-14.8); White Blood Cell Count 5.9 X10^3/uL (4.5-11.0)
[2023-01-22 10:04] LABS: Appearance Urine UA CLEAR; Bilirubin Urine UA NEGATIVE (NEGATIVE); Color Urine UA YELLOW; Glucose Urine UA NEGATIVE (Negative); Ketones Urine UA NEGATIVE (NEGATIVE); Leukocyte Esterase Urine UA 1+ (NEGATIVE); Nitrite Urine UA POSITIVE (Negative); Occult Blood Urine UA NEGATIVE (Negative); Protein Urine UA NEGATIVE (Negative); Urobilinogen Urine UA 0.2 E.U./dL (0.2)
[2023-01-22 10:11] LABS: Bacteria Urine Many (>30); Culture Indicated Urine Specimen Cultured; RBC Urine None Seen (0-5/HPF); Squamous Epithelial Cell Urine None Seen (0-5/HPF); WBC Urine 10-30/HPF (0-5/HPF)
[2023-01-22 10:26] LABS: Alanine Aminotransferase 22 IU/L (<35); Albumin 4.1 g/dL (3.5-5.0); Albumin Globulin Ratio 1.4 (1.0-2.8); Alkaline Phosphatase 69 U/L (38-126); Aspartate Aminotransferase 27 IU/L (14-36); BUN Creatinine Ratio 24.1 (6-22); Bilirubin Total 0.5 mg/dL (0.2-1.3); Blood Urea Nitrogen 28 mg/dL (7-17); Calcium 9.9 mg/dL (8.4-10.2); Carbon Dioxide 20 mmol/L (22-32); Chloride 106 mmol/L (98-107); Cholesterol 180 mg/dL (140-199); Estimated Glomerular Filt Rate 48 mL/min (>60); Globulin 2.9 g/dL (1.7-4.1); Glucose 209 mg/dL (80-110); HDL Cholesterol 62 mg/dL (40-60); HEMOLYSIS < 15 (0-50); LDL Cholesterol Calculated 90 mg/dL (<100); Potassium 4.5 mmol/L (3.4-5.1); Sodium 135 mmol/L (137-145); Triglycerides 138 mg/dL (35-150)
[2023-01-22 10:32] LABS: Creatinine Urine Random 90.8 mg/dL
[2023-01-22 10:33] LABS: Vitamin D 25 Hydroxy (D3) 38.1 ng/mL (30.0-100.0)
[2023-01-22 10:48] LABS: TSH w/ Reflex to FT4 0.46 uIU/mL (0.47-4.68)
[2023-01-22 11:36] LABS: Free T4, Direct Thyroxine 0.87 ng/dL (0.78-2.19)
[2023-01-23 09:36] LABS: x Labcorp Estim. Avg Glu (eAG) 160 mg/dL (.); x Labcorp Hemoglobin A1c 7.2 % (4.8-5.6)
== END ==
PROVIDERS: PCP Pediatrics; Referring Provider Pediatrics; Visit Provider Pediatrics
DX: I10 Essential (primary) hypertension (principal); E55.9 Vitamin D deficiency, unspecified; N18.30 Chronic kidney disease, stage 3 unspecified; E11.610 Type 2 diabetes mellitus with diabetic neuropathic arthropathy; M54.12 Radiculopathy, cervical region; M54.2 Cervicalgia
CPT/HCPCS: 36415; 72040; 80053; 80061; 81001; 82043; 82306; 82570; 83036; 84439; 84443; 85025; 87086; 87186

== ENCOUNTER → 2023-02-10 13:37 | Outpatient (CLI) | payer MEDICARE, OTHER, SELFPAY ==
--- NOTE | 2023-02-10 | DI.ECHO.S_ITS ---
[place] [facility]---------+ [facility] +---------+ : : [address] : [address] : : : : [id number] : : : : Phone: [phone] Echocardiogram Report + + :Name: MERLENE STANFORD Study Date: 02/10/2023 Height: 61.5 in: :[facility] ReadingLocation: Weight: 170 lb : : Gender: Female BSA: 1.8 m2 : :: 1945 Age: 77 yrs BP: 137/70 mmHg: :Reason For Study: MURMUR : :Ordering Physician: ANJANA, : :ESTEBAN Lopez Performed By: Gretta Khanna : :Referring: ESTEBAN YEUNG : + + Interpretation Summary 1) Normal left ventricular thickness, size, wall motion, and systolic function (EF 55-60%). 2) The right ventricle is mildly dilated. Right ventricular systolic function is at the lower limits of normal. 3) No significant valvular abnormalities. 4) There is mild luminal irregularity and echogenicity in the abdominal aorta, suggestive of aortic atherosclerotic disease. 5) Compared to the Echo done 10/16/2018, no significant change in cardiac structure. Procedure: A two-dimensional transthoracic echocardiogram with color flow and Doppler was performed. The study quality was technically adequate. Comparison is made with the echocardiogram of 10/16/2018. The patient was in sinus bradycardia with heart rates between 50-57 bpm during the exam. Left Ventricle: The left ventricle is normal in size and wall thickness. Proximal septal thickening is noted. The ejection fraction is estimated to be 55-60%. Left ventricular systolic function appears normal without focal wall motion abnormalities. Diastolic parameters suggest a pseudonormalization pattern, consistent with probable elevated filling pressures. Right Ventricle: The right ventricle is mildly dilated. Right ventricular systolic function is at the lower limits of normal. Atria: The left atrium is mildly dilated. Right atrial size is normal. There is no Doppler evidence for an interatrial shunt. Mitral Valve: The mitral valve is normal in structure and function. There is mild mitral annular calcification. There is trace mitral regurgitation. Aortic Valve: The aortic valve is trileaflet. The aortic valve opens well. The aortic valve is mildly calcified. There is no aortic valve stenosis. No aortic regurgitation is present. Tricuspid Valve: The tricuspid valve is normal in structure and function. There is mild tricuspid regurgitation. The right ventricular systolic pressure is estimated to be at least 29 mmHg based on an estimated right atrial pressure of 3 mm Hg. Pulmonic Valve: The pulmonic valve leaflets are thin and pliable; valve motion is normal. There is mild pulmonic regurgitation. Great Vessels: The aortic root is normal size. The dimensions of the ascending aorta are normal. There is mild luminal irregularity and echogenicity in the abdominal aorta, suggestive of aortic atherosclerotic disease. The IVC is of normal diameter and collapses greater than 50% with a sniff. This suggests a low right atrial pressure of 3 mm Hg. Pericardium/ Pleura There is no pericardial effusion. There is no pleural effusion. MMode/2D Measurements & Calculations LVIDd: 4.4 cm LVOT diam: 2.1 cm LVIDs: 2.8 cm Ao root diam: 3.3 cm FS: 35.6 % asc Aorta Diam: 3.4 cm EPSS: 0.60 cm Ao Arch Diam (Prox Trans): 2.3 cm IVSd: 1.2 cm LVPWd: 0.93 cm LV ocampo. diameter/BSA (cm/m^2): 2.5 LV sys. diameter/BSA (cm/m^2): 1.6 LA A2 area: 19.8 cm2 RA long axis: 5.1 cm LA A4 area: 19.2 cm2 RA area: 16.7 cm2 LA length (vol): 5.4 cm RA vol: 46.9 ml LA vol: 59.7 ml RA : 26.4 ml/m2 LA vol index: 33.6 ml/m2 IVC diam: 1.2 cm RVD1 (basal): 4.2 cm RVD2 (mid): 3.7 cm TAPSE: 1.8 cm Doppler Measurements & Calculations Ao V2 max: 153.0 cm/sec LVOT Max Anthony: 102.2 cm/sec Ao V2 mean: 107.9 cm/sec LV V1 max P.2 mmHg Ao max P.4 mmHg LV V1 VTI: 26.0 cm Ao mean P.2 mmHg STEVEN(I,D): 2.6 cm2 Ao V2 VTI: 34.5 cm STEVEN(V,D): 2.3 cm2 sev ratio: 0.75 STEVEN indexed to BSA (cm^2/m^2): 1.5 MV E max anthony: 93.7 cm/sec TR max anthony: 253.2 cm/sec MV A max anthony: 87.1 cm/sec TR max P.7 mmHg MV E/A: 1.1 PA V2 max: 126.4 cm/sec Med Peak E' Anthony: 4.2 cm/sec PA V2 mean: 89.1 cm/sec E/E' med: 22.3 PA mean P.5 mmHg Lat Peak E' Anthony: 9.6 cm/sec PA pr(Accel): 25.9 mmHg E/E' lat: 9.8 E/e' average: 16.0 MV dec time: 0.25 sec SV(LVOT): 90.9 ml Reading Physician:07:15 PM
== END ==
PROVIDERS: PCP Pediatrics; Referring Provider Pediatrics; Visit Provider Pediatrics
DX: I08.1 Rheumatic disorders of both mitral and tricuspid valves (principal); R01.1 Cardiac murmur, unspecified; I10 Essential (primary) hypertension
CPT/HCPCS: 93306

== ENCOUNTER → 2023-07-14 10:07 | Outpatient (CLI) | payer MEDICARE, OTHER, SELFPAY ==
--- NOTE | 2023-07-14 10:11 | DI.RAD.S_ITS ---
PROCEDURE: XR FOOT LT MIN 3V INDICATIONS: Pain/swelling left 5th toe x1 month TECHNIQUE: 3 views of the foot were acquired. COMPARISON: None. FINDINGS: Bones: Question healing fracture of the lateral aspect of the base of the 5th metatarsal versus heterotopic bone formation from previous injury. No suspicious bony lesions. Soft tissues: No tibiotalar joint effusion. Achilles tendon appears normal. IMPRESSION: Question healing fracture lateral aspect base of 5th metatarsal versus heterotopic bone. Dictated by: Juliocesar Cristobal M.D. on 07/14/2023 at 12:25 Approved by: Juliocesar Cristobal M.D. on 07/14/2023 at 12:41
== END ==
PROVIDERS: PCP Family Medicine; Referring Provider Family Medicine; Visit Provider Family Medicine
DX: M79.675 Pain in left toe(s) (principal); M79.89 Other specified soft tissue disorders
CPT/HCPCS: 73630

== ENCOUNTER → 2023-12-14 17:20 | Outpatient (CLI) | payer MEDICARE, OTHER, SELFPAY ==
[2023-12-14 18:05] LABS: Hematocrit 32.7 % (36-46); Hemoglobin 11.1 g/dL (12.0-16.0); Mean Corpuscular Hemoglobin 30.2 PG (26-34); Mean Corpuscular Volume 88.9 fL (80-100); Platelet Count 219 X10^3/uL (150-400); Red Blood Cell Count 3.68 X10^6/uL (4.0-5.2); Red Cell Distribution Width 13.5 % (11.6-14.8); White Blood Cell Count 7.3 X10^3/uL (4.5-11.0)
[2023-12-14 18:18] LABS: Hemoglobin A1C% w Est Avg Glu 7.8 % (4.0-6.0)
[2023-12-14 18:26] LABS: BUN Creatinine Ratio 26.9 (6-22); Blood Urea Nitrogen 28 mg/dL (7-17); Calcium 9.7 mg/dL (8.4-10.2); Carbon Dioxide 26 mmol/L (22-32); Chloride 107 mmol/L (98-107); Cholesterol 188 mg/dL (140-199); Estimated Glomerular Filt Rate 55 mL/min (>60); Glucose 265 mg/dL (80-110); HDL Cholesterol 70 mg/dL (40-60); HEMOLYSIS < 15 (0-50); LDL Cholesterol Calculated 78 mg/dL (<100); Potassium 4.6 mmol/L (3.4-5.1); Sodium 137 mmol/L (137-145); Triglycerides 202 mg/dL (35-150)
[2023-12-14 18:41] LABS: Vitamin D 25 Hydroxy (D3) 35.1 ng/mL (30.0-100.0)
== END ==
PROVIDERS: PCP Family Medicine; Referring Provider Family Medicine; Visit Provider Family Medicine
DX: E11.69 Type 2 diabetes mellitus with other specified complication (principal); N18.30 Chronic kidney disease, stage 3 unspecified; E78.2 Mixed hyperlipidemia; I10 Essential (primary) hypertension; E11.610 Type 2 diabetes mellitus with diabetic neuropathic arthropathy; E55.9 Vitamin D deficiency, unspecified
CPT/HCPCS: 36415; 80048; 80061; 82306; 83036; 85027

== ENCOUNTER → 2023-12-20 12:52 | Outpatient (CLI) | payer MEDICARE, OTHER, SELFPAY ==
--- NOTE | 2023-12-20 13:28 | DI.RAD.S_ITS ---
PROCEDURE: XR FOOT RT 2V INDICATIONS: Rt Heel Pain TECHNIQUE: 3 views of the foot were acquired. COMPARISON: [facility], CR, XR FOOT LT MIN 3V, 07/14/2023, 10:33. FINDINGS: Bones: Suspected chronic fracture deformity of the 5th metatarsal. Plantar and dorsal calcaneal enthesophytes. Interphalangeal joint space narrowing with osteophytosis. Soft tissues: No tibiotalar joint effusion. Achilles tendon appears normal. 5 mm linear radiopaque foreign body projects lateral to the 5th metatarsal shaft. IMPRESSION: 5 mm linear radiopaque foreign body projects lateral of the 5th metatarsal shaft, possibly a retained needle tip. Mild interphalangeal osteoarthritis. Calcaneal enthesopathy. Chronic fracture deformity of the 5th metatarsal base. Dictated by: Caden Heller M.D. on 12/20/2023 at 15:14 Approved by: Caden Heller M.D. on 12/20/2023 at 15:15
--- NOTE | 2023-12-20 13:28 | DI.CT.S_ITS ---
PROCEDURE: CT ABDOMEN PELVIS W CON INDICATIONS: Chronic LLQ pain, chronic diarrhea, h/o hysterectomy TECHNIQUE: After the administration of intravenous contrast, axial sections acquired from the lung bases to the pubic symphysis. Coronal and sagittal reformats were performed. For radiation dose reduction, the following was used: automated exposure control, adjustment of mA and/or kV according to patient size. COMPARISON: [facility], CT, CT ABDOMEN PELVIS W CON, 11/29/2020, 21:24. FINDINGS: Image quality: Diagnostic. Lower Chest: No significant findings. ABDOMEN: Liver: No solid mass. Gallbladder: Absent. Biliary ducts: No intrahepatic or extrahepatic biliary dilation, accounting for a post cholecystectomy state. Pancreas: No ductal dilation. Spleen: Size is within normal limits. Adrenal Glands: No adrenal nodules. Kidneys and Ureters: No hydronephrosis. No solid mass. No complex renal cystic lesion which requires follow up. Stomach and Bowel: Normal colonic caliber, without significant wall thickening. No significant diverticular disease. Normal appendix. Peritoneum: No abnormal intraperitoneal fluid. No free air. Ventral Wall: No significant ventral hernia. Subcutaneous fat stranding within the lower abdominal wall, with superimposed skin thickening. Abdominal Nodes: No retroperitoneal or mesenteric adenopathy by size criteria. Vessels: Aorta and inferior vena cava are normal in size. PELVIS: Pelvic Organs: Hysterectomy. Bladder: No bladder wall thickening, accounting for underdistention. Pelvic Nodes: No enlarged lymph nodes. Miscellaneous: No inguinal hernias are seen. Bones: No aggressive osseous abnormality. Degenerative disc disease of the lumbar spine. IMPRESSION: No acute findings to explain the patient's chronic left lower quadrant pain. No significant diverticular disease. No nephrolithiasis. Subcutaneous fat stranding with overlying skin thickening along the anterior lower abdominal wall, possibly cellulitis. Correlate with physical exam. Dictated by: Caden Heller M.D. on 12/20/2023 at 15:52 Approved by: Caden Heller M.D. on 12/20/2023 at 15:55
[2023-12-20 15:41] LABS: Creatinine Urine Random 38.09 mg/dL
== END ==
PROVIDERS: PCP Family Medicine; Referring Provider Family Medicine; Visit Provider Family Medicine
DX: E11.22 Type 2 diabetes mellitus with diabetic chronic kidney disease (principal); I12.9 Hypertensive chronic kidney disease with stage 1 through stage 4 chronic kidney disease, or unspecified chronic kidney disease; N18.30 Chronic kidney disease, stage 3 unspecified; E11.69 Type 2 diabetes mellitus with other specified complication; E11.610 Type 2 diabetes mellitus with diabetic neuropathic arthropathy; R10.32 Left lower quadrant pain; M19.071 Primary osteoarthritis, right ankle and foot; M77.31 Calcaneal spur, right foot; M79.5 Residual foreign body in soft tissue; S92.351S Displaced fracture of fifth metatarsal bone, right foot, sequela; M79.671 Pain in right foot; E78.2 Mixed hyperlipidemia; M51.36 Other intervertebral disc degeneration, lumbar region; G89.29 Other chronic pain; Z90.710 Acquired absence of both cervix and uterus; Z90.49 Acquired absence of other specified parts of digestive tract
CPT/HCPCS: 73620; 74177; 82043; 82570; Q9967